=== PATIENT | male | born 1950 | race Caucasian/White ===

== ENCOUNTER 2016-04-05 02:54 | Observation (INO) | payer BC, SELFPAY ==
[2016-04-05] MEDS ORDERED: Clopidogrel 75 MG Tab PO ONE (03:19)
[2016-04-05] MEDS ORDERED: Sodium Chloride 0.9% 10 ML Syringe FLUSH PRN ×2 (03:19→05:04)
[2016-04-05] MEDS ORDERED: Aspirin 81 MG Tab.Chew CHEW ONE (03:19)
[2016-04-05] MEDS ORDERED: Famotidine 20 MG/2 ML SDV IVPUSH ONE (03:19)
--- NOTE | 2016-04-05 03:19 | EDM.PDOC ---
ED HPI GENERAL MEDICAL PROBLEM - General Chief Complaint: General Stated Complaint: light headed Time Seen by Provider: 04/05/16 03:10 Source of Information: Reports: Patient, Family (), Old records ([facility] chart/EMR) - History of Present Illness INITIAL COMMENTS - FREE TEXT/NARRATIVE: Patient was brought to the emergency room via private automobile by his for evaluation of progressive persistent 5/10 retrosternal chest pressure and heaviness with radiation into the shoulders and neck bilaterally and associated with moderate dizziness, mild diaphoresis, and mild dyspnea with ambulation with symptoms starting at about 15:00 hours yesterday afternoon. The patient denies any orthostasis, orthopnea, or any other anginal-type symptoms, although he has had some mild decreased exercise tolerance during the last couple of days. No recent history of abdominal pain, heartburn, nausea, diarrhea, melena, gross hematochezia, or any food intolerance, including fatty foods, etc.. The patient also denies any recent fever, cough, wheezing, dyspnea, etc.. No history of recent headaches, diplopia, change in mental status, or other change in neurological status. Onset: today, gradual Onset Date: 04/04/16 Onset Time: 15:00 Duration: Constant, Getting worse Location: Reports: neck, chest, upper extremity, left, upper extremity, right, radiates to: (As above). Denies: head, face, abdomen, back Quality: Reports: Pressure Severity: moderate Improves with: Reports: Rest Worsens with: Reports: Movement (Ambulation with no recent symptoms with head movement) Context: Reports: Other (As above) Associated Symptoms: Reports: diaphoresis, shortness of breath. Denies: confusion, chest pain, cough, fever/chills, headaches, loss of appetite, malaise , nausea/vomiting, seizure, syncope, weakness Treatments CLINIC LPN: Reports: Other (see below) (None) Middle Chest Pain Score (Numeric/FACES): 5 - Related Data Allergies Allergy/AdvReac Type Severity Reaction Status Date / Time aspirin Allergy Other Verified 04/05/16 03:00 Home Meds: Home Meds DULoxetine [Cymbalta] 30 mg PO DAILY 08/28/14 [History] Ferrous Sulfate 325 mg PO BIDMEALS 08/28/14 [History] Folic Acid 1 mg PO DAILY 08/28/14 [History] Gabapentin 600 mg PO QID 08/28/14 [History] Simvastatin 40 mg PO BEDTIME 08/28/14 [History] hydrOXYzine HCl [hydrOXYzine] 50 mg PO TID PRN 08/28/14 [History] Naltrexone 50 mg PO BEDTIME #30 tablet 11/17/14 [Rx] Liraglutide [Victoza] 1.8 mg SUBCUT DAILY 05/30/15 [History] Lisinopril 5 mg PO DAILY 05/30/15 [History] metFORMIN HCl [Metformin HCl ER] 1,000 mg PO BID 05/30/15 [History] Cyclobenzaprine [Flexeril] 10 mg PO TID PRN #30 tablet 02/01/16 [Rx] Multivitamins [Tab-A-Carrie] 1 tab PO DAILY 02/01/16 [History] Tamsulosin [Flomax] 0.4 mg PO BEDTIME 02/01/16 [History] Cyanocobalamin (Vitamin B-12) [Vitamin B-12] 1,000 mcg SL DAILY 03/08/16 [ History] Empagliflozin [Jardiance] 25 mg PO DAILY 03/08/16 [History] buPROPion [Wellbutrin XL] 150 mg PO DAILY 03/08/16 [History] Acetaminophen [Tylenol Extra Strength] 500 mg PO TID 04/05/16 [History] Past Medical History HEENT History: Reports: Hard of hearing, Impaired vision. Denies: Allergic rhinitis, Cataract, Glaucoma, Macular degeneration, Retinal detachment Other HEENT History: Reading glasses despite previous LASIK surgery, mild borderline presbycusis with no therapy Cardiovascular History: Reports: Afib, Arrhythmia, CAD, Heart murmur, High cholesterol, Hypertension, Other (see below). Denies: Aneurysm, Blood clots/VTE /DVT, Bypass, Heart Failure, NE, Pacemaker, PTCA, Stents Other Cardiovascular History: Atrial fibrillation versus PSVT with status post ablation as below, incomplete right bundle branch block, dyslipidemia, hypertensive cardiomegaly, mild diffuse valvular disease, PACs, Respiratory History: Reports: COPD, Sleep apnea, Other (see below). Denies: Intubation, previous, PE, Pneumothorax Other Respiratory History: Restless leg syndrome Gastrointestinal History: Reports: Cholelithiasis, Colon polyp, Diverticulosis, Gastritis, GERD, Hemorrhoids, Hiatal hernia, PUD, Other (see below). Denies: Celiac disease, Chronic constipation, Chronic diarrhea, Fecal incontinence, GI bleed, Hepatitis, Inflammatory bowel disease, Irritable bowel syndrome, Jaundice , Pancreatitis Other Gastrointestinal History: recurrent rectal fissures/fistulas, Gilbert's syndrome, mild colitis, gastritis, esophagitis, and duodenitis; hyperplastic colonic polyp at 30 cm on 03/12/2001, fatty liver Genitourinary History: Reports: BPH. Denies: Chronic renal insuffiency, Renal calculus, STD, Urinary incontinence, UTI, recurrent Musculoskeletal History: Reports: Arthritis, Back pain, chronic, Fracture, Gout , Neck pain, chronic, Osteoarthritis, Other (see below). Denies: Amputation, RA , SLE Other Musculoskeletal History: Left wrist fracture on 08/29/09 with fixation as below, right thumb fracture in about 1999 with surgery as below, vertebral body compression fractures of T5, T7, and T8-T10 with mild scoliosis by CT scan Neurological History: Reports: Neuropathy, diabetic, Neuropathy, peripheral, Other (see below). Denies: Brain injury, Cerebral aneurysms, Concussion, CVA, Headaches, chronic, Head trauma, Migraines, MS, Parkinson's, Seizure, TIA, Vertigo Other Neuro History: No history of DTs or seizures from alcohol use, mild cerebrovascular disease by CT scan of the head as below Psychiatric History: Reports: Addiction, Anxiety, Depression, Psych Hospitalization(s), Other (see below). Denies: Abuse, victim of, ADD, ADHD, Alzheimers disease, Dementia, Hallucinations, PTSD, Suicide attempt, Suicidal ideation Other Psychiatric History: Alcohol abuse with previous history of alcohol treatment including inpatient detoxification in January 2016 through February 2015 for 2 weeks, previous tobacco and and chronic narcotic use, chronic insomnia Endocrine/Metabolic History: Reports: Diabetes, type II, Other (see below). Denies: Hypothyroidism, IDDM Other Endocrine/Metabolic History: Diabetes mellitus-diet controlled with previous history of occasional hypoglycemia and current medication program for weight loss Hematologic History: Reports: Anemia, B12 deficiency, Folic acid, Iron deficiency, Polycythemia. Denies: Blood transfusion(s) Immunologic History: Reports: None. Denies: AIDS, HIV, SLE Oncologic (Cancer) History: Reports: None. Denies: Basal cell carcinoma, Hodgkin's Lymphoma, Leukemia, Lymphoma, Malignant melanoma, Non-Hodgkin's Lymphoma Dermatologic History: Reports: None. Denies: Eczema, Psoriasis - Infectious Disease History Infectious Disease History: Reports: Chicken pox, Measles, Mumps. Denies: C- difficile, Helicobacter pylori, MRSA, Pertussis (whooping cough), Rheumatic Fever, Rubella, Scarlet fever, Shingles, TB, VRE - Past Surgical History Head Surgeries/Procedures: Reports: None HEENT Surgical History: Reports: Eye surgery, LASIK, Oral surgery, Other (see below). Denies: Adenoidectomy, Cataract surgery, Myringotomy w tube(s), Naso- sinus surgery, Tonsillectomy Other HEENT Surgeries/Procedures: LASIK surgery bilaterally on 12/08/1999, bilateral upper blepharoplasty in about 2013, complete teeth extraction Cardiovascular Surgical History: Reports: Cardiac Ablation, Other (see below). Denies: Varicose, Vascular surgery Other Cardiovascular Surgeries/Procedures: Cardiac ablation in November 2014 for atrial fibrillation Respiratory Surgical History: Reports: None. Denies: Lung Biopsies, Thoracentesis GI Surgical History: Reports: Bariatric procedure, Cholecystectomy, Colonoscopy , EGD, Polypectomy, Other (see below). Denies: Appendectomy, Hernia, abdominal , Hernia, inguinal, Hernia repair/other Other GI Surgeries/Procedures: Last colonoscopy 07/19/12 with EGD and colonoscopy on 03/12/2001, gastric bypass in 2005, Perirectal fistulectomy with concurrent hemorrhoidectomy on 02/11/1999 with repeat surgery in November 2015, polypectomy at 30 cm on 03/12/2001, laparoscopic cholecystectomy on 08/28/14 Male Surgical History: Reports: Circumcision, Vasectomy, Other (see below). Denies: TURP-Transurethral resection of prostate Other Male Surgeries/Procedures: Circumcision as an , vasectomy in about 1978 Endocrine Surgical History: Reports: None. Denies: Thyroid biopsy Neurological Surgical History: Reports: None. Denies: C-Spine, Discectomy, Laminectomy, Lumbar spine, Spinal fusion, Vertebroplasty Musculoskeletal Surgical History: Reports: Carpal tunnel, Hip replacement, Knee replacement, ORIF, Other (see below). Denies: Amputation, Arthroscopic knee, Arthroscopic procedure, Ganglion cyst, Shoulder surgery Other Musculoskeletal Surgeries/Procedures:: Left wrist ORIF secondary to fracture in August 2009, excision of a neuroma from digit number 2 of the left foot, left hip TEP, Right carpal tunnel release on 12/21/1999 and, left carpal tunnel release in January 2000, partial left knee arthroplasty in February 2011 with right partial knee arthroplasty in 2013, right thumb graft and pinning in about 1999 Oncologic Surgical History: Reports: None Dermatological Surgical History: Reports: None - Past Imaging History Past Imaging History: Reports: Cardiac echo (Last on 11/18/2014), CAT scan (CT scan of the brain, cervical spine, thoracic spine, and lumbar spine on 02/01/[address] scan of Head, C-spine, and abdomen and pelvis secondary to trauma on 08/29/09, CT of the abdomen and pelvis on 07/15/06), MRI (Lumbar spine on 09/07/15, Left knee on 12/01/10), Sleep study (09/26/11), Stress testing ( Cardiolite stress test on 11/20/14 with ejection fraction of 57% with previous Cardiolite stress test on 12/27/01), Ultrasound (Gallbladder ultrasound on ), Other (see below) (Electroimmunofluoresis on 11/10/1999, EMGs and nerve conduction studies of the upper extremities on 10/14/1999) Social & Family History - Family History HEENT: Reports: Macular degeneration, Other (see below). Denies: Allergic rhinitis, Glaucoma, Hearing impairment Other HEENT Family History: Mother with macular degeneration Cardiac: Reports: Blood clots/VTE/DVT, Bypass, CAD, Heart failure, Heart murmur , Heart valve replacement, High cholesterol, Hypertension, NE, Other (see below) . Denies: Afib, Aneurysm, Arrhythmia, Pacemaker, PVD/COD, Stent, Syncope Other Cardiac Family History: Mother with three-vessel CABG at age 73 with CHF, valvular surgery, and possible previous NE, hypertension in mother and 2 brothers, brother with hyperlipidemia, mother with history of DVT in the legs in her 60s Respiratory: Reports: None. Denies: Asthma, COPD, PE, Pneumothorax, Sleep apnea GI: Reports: Cholelithiasis, Other (see below). Denies: Celiac disease, Colon polyps, Diverticulosis, GERD, GI bleed, Inflammatory bowel disease, Irritable bowel syndrome, PUD Other GI Family History: Mother with cholelithiasis : Reports: None. Denies: Dialysis, Renal calculus, Renal disease/ insufficiency OBGYN: Reports: None. Denies: Dysfunctional uterine bleeding, Endometriosis, Recurrent spontaneous Musculoskeletal: Reports: Arthritis, Gout, Osteoarthritis, Osteoporosis, Other ( see below). Denies: RA, SLE Other Musculoskeletal Family History: Maternal aunt with osteoarthritis, brother with gout Neurological: Reports: Alzheimers disease, CVA, Dementia, Other (see below). Denies: Cerebral aneurysms, Migraines, MS, Neuropathy, diabetic, Neuropathy, peripheral, Parkinson's, Seizure, TIA Other Neurological Family History: Mother with CVA in her 70s and history of Alzheimer's disease Psychiatric: Reports: Anxiety, Depression, Suicide attempt, Other (see below). Denies: Abuse, victim of, ADD, ADHD, Psychosis, PTSD Other Psychiatric Family History: Father and sister with history of alcohol abuse and anxiety depression which did require alcohol treatment and hospitalizations, father with history of suicide attempt, Endocrine/Metabolic: Reports: Diabetes, type II, Other (see below). Denies: Hypothyroidism, IDDM Other Endocrine/Metabolic Family History: Borderline diabetes mellitus in father Hematologic: Reports: None. Denies: Anemia Immunologic: Reports: None. Denies: AIDS, HIV, SLE Dermatologic: Reports: None. Denies: Eczema, Psoriasis Oncologic: Reports: Breast, Lung, Other (see below). Denies: Colon, Hodgkin's lymphoma, Leukemia, Non-Hodgkin's lymphoma, Prostate, Skin Other Oncologic Family History: Paternal aunt with lung cancer fatal in her 60s with limited previous tobacco use, paternal cousin with lung cancer at age 56 likely secondary to tobacco use, sister with breast cancer in her 50s - Tobacco Use Smoking Status *Q: Former Smoker Years of Tobacco use: 30 Packs/Tins Daily: 2 Used Tobacco, but Quit: Yes Month Tobacco Last Used: Started smoking at age 17 with no use since 02/11/1999 Second Hand Smoke Exposure: No Second Hand Smoke Education Provided: No - Caffeine Use Caffeine Use: Reports: Soda (6 sodas per day). Denies: Coffee, Energy drinks, Tea - Alcohol Use Alcohol Use History: Yes Days Per Week of Alcohol Use: 7 (History of alcohol abuse since about age 51 requiring treatment as above) Number of Drinks Per Day: 2 (1.5 pints per day in 2 cans of soda) Number of Drinks Per Day Comment: Last drink about 2 weeks ago Total Drinks Per Week: 14 Alcohol Use in Last Twelve Months: Yes Alcohol Use Frequency: Binges, Daily - Recreational Drug Use Recreational Drug Use: No Drug Use in Last 12 Months: No Recreational Drug Type: Denies: Amphetamines (Speed), Cocaine, Heroin, Inhalants (Glues, Solvents, Aerosols), LSD (Acid), Marijuana/Hashish, Methamphetamine - Living Situation & Occupation Living situation: Reports: (1967, 5 children), with family () Occupation: retired (retired [employer] at age 65) ED ROS GENERAL - Review of Systems Review Of Systems: See Below Constitutional: Reports: no symptoms, weight loss (Intentional 70 pound weight loss during the last year as part of weight loss program). Denies: fever, chills, malaise, weakness, fatigue, night sweats, diaphoresis, decreased appetite, weight gain HEENT: Reports: Hearing loss (Stable borderline chronic), Vision change (Mild bilateral with dizziness). Denies: Contact Lenses, Dental pain, Ear discharge, Ear pain, Eye pain, Glasses, Nose pain, Throat pain, Throat swelling, Vertigo Respiratory: Reports: shortness of breath. Denies: wheezing, pleuritic chest pain, cough Cardiovascular: Reports: Chest pain, Dyspnea on exertion, Lightheadedness. Denies: Blood pressure problem, Claudication, Edema, Orthopnea, Palpitations, PND, Syncope Endocrine: Reports: no symptoms. Denies: fatigue GI/Abdominal: Reports: No symptoms. Denies: Abdominal pain, Anorexia, Black stool, Bloody stool, Constipation, Diarrhea, Decreased appetite, Difficulty swallowing, Distension, Flatus, Hematochezia, Melena, Mucous in stool, Nausea, Stool incontinence, Vomiting : Reports: no symptoms. Denies: discharge, dysuria, flank pain, hematuria, incontinence, irregular menses, pain, urgency, urinary retention Musculoskeletal: Reports: neck pain (Chest pain radiation as above), shoulder pain (Chest pain radiation as above). Denies: arm pain, back pain, leg pain Skin: Reports: diaphoresis. Denies: bruising, wound Neurological: Reports: dizziness, difficulty walking (Secondary to dizziness). Denies: confusion, headache, numbness, paresthesia, pre-existing deficit, seizure, syncope, tingling, tremors, trouble speaking, weakness, change in speech, gait disturbance Psychiatric: Reports: No symptoms. Denies: Agitation, Anxiety, Confusion, Cravings, Depression, Hallucinations Hematologic/Lymphatic: Reports: no symptoms Immunologic: Reports: no symptoms ED EXAM, GENERAL - Physical Exam Exam: See Below Exam Limited By: No limitations General Appearance: alert, WD/WN, no apparent distress, anxious (Mild) Eye Exam: bilateral eye: EOMI, normal fundi, normal inspection (No nystagmus), PERRL Ears: normal external exam, normal canal, normal TMs, hearing loss (Mild bilateral presbycusis, stable by history) Nose: normal inspection, normal mucosa, no blood Throat/Mouth: Normal inspection, Normal lips, Normal teeth, Normal gums, Normal oropharynx, Normal voice, No airway compromise. No: Dysphagia, Perioral cyanosis Head: atraumatic, normocephalic. No: facial tenderness, sinus tenderness Neck: normal inspection, supple, non-tender, full range of motion. No: carotid bruit, lymphadenopathy (L), lymphadenopathy (R), thyromegaly Respiratory/Chest: no respiratory distress, lungs clear, normal breath sounds, no accessory muscle use, chest non-tender. No: pleural rub, retractions Cardiovascular: normal peripheral pulses, regular rate, rhythm, no edema, no gallop, no JVD, no murmur, no rub. No: gallop/S3, gallop/S4, friction rub Peripheral Pulses: 2+: radial (L), radial (R), dorsalis pedis (L), dorsalis pedis (R) GI/Abdominal: normal bowel sounds, soft, non tender, no organomegaly, no distention, no abnormal bruit, no mass. No: guarding (Male) Exam: Deferred Rectal (Males) Exam: Deferred Back Exam: normal inspection, full range of motion. No: CVA tenderness (L), CVA tenderness (R), muscle spasm Extremities: normal inspection, normal range of motion, non-tender, no pedal edema, normal capillary refill. No: Disha's Sign Neurological: alert, oriented, CN II-XII intact, normal cognition, normal gait, normal reflexes (Negative Babinski's, finger to nose, and pronator rotation tests. No evidence of facial paresis, tongue deviation, orthostasis, etc.. Excellent reverse thought processes.), no motor/sensory deficits Psychiatric: anxious (Mild), depressed mood (Borderline) Skin Exam: Warm, Dry, Intact, Normal color, No rash. No: Diaphoretic, Ecchymosis, Wound/incision Lymphatic: no adenopathy EKG INTERPRETATION EKG Date: 04/05/16 Time: 03:24 Rhythm: NSR Rate (beats/min): 84 Garner: normal P-wave: enlarged (Mild diffuse biphasic P waves) QRS: normal (QRS interval of 0.09 seconds representing repolarization changes with borderline T-wave inversion in lead V1) ST-T: normal QT: normal MN/PQ Interval: 0.17 seconds with mild poor R wave progression anteriorly Comparison: no change (From last EKG on 11/23/14) EKG Interpretation Comments: No acute ischemic changes Course - Vital Signs Last Recorded V/S: Last Vital Signs Temp 36.4 C 04/05/16 03:01 Pulse 86 04/05/16 04:06 Resp 16 04/05/16 04:06 BP 123/78 04/05/16 04:06 Pulse Ox 100 04/05/16 04:06 Vital Signs - 24 hr 04/05/16 04/05/16 04/05/16 03:01 03:15 03:30 Temperature [ 36.4 C Oral] Pulse, 94 88 86 Peripheral [ Right Pulse Oximetry] Respiratory 18 17 19 Rate Blood Pressure 116/73 107/76 118/82 [Right Upper Arm] O2 Sat by Pulse 96 96 100 Oximetry 04/05/16 04/05/16 04/05/16 03:46 04:06 04:27 Temperature [ Oral] Pulse, 107 H 86 87 Peripheral [ Right Pulse Oximetry] Respiratory 20 16 17 Rate Blood Pressure 113/71 123/78 114/76 [Right Upper Arm] O2 Sat by Pulse 100 100 100 Oximetry - Orders/Labs/Meds Orders: Active Orders 24 hr Category Date Time Status Cardiac Monitoring [RC] . DIRECTED Care 04/05/16 03:19 Active EKG Documentation Completion [RC] ASDIRECTED Care 04/05/16 03:22 Active Oxygen Therapy, ED [RC] CONTINUOUS Care 04/05/16 03:19 Active Peripheral IV Care [RC] . DIRECTED Care 04/05/16 03:22 Active Pulse Oximetry [RC] CONTINUOUS Care 04/05/16 03:19 Active Up With Assistance [RC] PFP Care 04/05/16 03:19 Active Vital Signs [RC] PFP Care 04/05/16 03:19 Active Nothing per Oral Now Diet [DIET] Diet 04/05/16 Breakfast Active Chest 1V Frontal [CR] Stat Exams 04/05/16 03:19 Taken Sodium Chloride 0.9% [Saline Flush] Med 04/05/16 03:19 Active 10 ml FLUSH ASDIRECTED PRN Obtain Past Medical Record [OM.PC] Urgent Oth 04/05/16 03:19 Active Peripheral IV Insertion Adult [OM.PC] Stat Oth 04/05/16 03:19 Ordered Resuscitation Status Stat Resus Stat 04/05/16 03:19 Ordered Medication Orders Sodium Chloride (Saline Flush) 10 ml FLUSH ASDIRECTED PRN PRN Reason: Keep Vein Open Last Admin: 04/05/16 03:55 Dose: 10 ml Labs: Laboratory Tests 04/05/16 04/05/16 04/05/16 Range/Units 03:35 03:35 03:35 WBC 7.0 (4.0-10.2) K/uL RBC 3.25 L (4.33-5.41) M/uL Hgb 10.2 L D (13.1-16.8) g/dL Hct 31.1 L (39.0-49.0) % MCV 95.7 D (84.0-98.0) fL MCH 31.4 (28.2-33.3) pg MCHC 32.8 (31.7-36.0) g/dL RDW 15.8 H (11.2-14.1) % Plt Count 277 D (150-350) K/uL Neut % (Auto) 61.4 (45.0-80.0) % Lymph % (Auto) 24.6 (10.0-50.0) % [place] % (Auto) 12.0 (2.0-14.0) % Eos % (Auto) 1.0 (0.0-5.0) % Baso % (Auto) 1.0 (0.0-2.0) % Neut # 4.29 (1.40-7.00) K/uL Lymph # 1.72 (0.50-3.50) K/uL [place] # 0.84 (0.00-1.00) K/uL Eos # 0.07 (0.00-0.50) K/uL Baso # 0.07 (0.00-0.20) K/uL PT 10.4 (9.8-11.7) SEC INR 1.0 APTT 22.1 L (23.5-30.0) SEC D-Dimer, Quantitative 216 (0-400) ng/mL Sodium (136-145) mmol/L Potassium (3.5-5.1) mmol/L Chloride (98-107) mmol/L Carbon Dioxide (21.0-32.0) mmol/L BUN (7-18) mg/dL Creatinine (0.51-1.17) mg/dL Est Cr Clr Drug Dosing mL/min Estimated GFR (MDRD) mL/min Glucose (74-106) mg/dL Hemoglobin A1c (4.3-5.7) % Lactic Acid (0.4-2.0) mmol/L Uric Acid (2.6-7.2) mg/dL Calcium (8.5-10.1) mg/dL Magnesium (1.8-2.4) mg/dL Total Bilirubin (0.2-1.0) mg/dL AST (15-37) U/L ALT (12-78) U/L Alkaline Phosphatase (46-116) IU/L Creatine Kinase (26-308) U/L Creatine Kinase Index (0.0-2.5) % CK-MB (CK-2) (0.00-3.60) ng/mL Troponin I (0.000-0.056) ng/mL Eep-M-Avananyislj Pept (0-125) pg/mL Total Protein (6.4-8.2) g/dL Albumin (3.4-5.0) g/dL TSH, Ultra Sensitive (0.358-3.740) mIU/mL Ethyl Alcohol (0.000-0.080) g/dL H. pylori IgG Antibody (NEGATIVE) 04/05/16 04/05/16 04/05/16 Range/Units 03:35 03:35 03:35 WBC (4.0-10.2) K/uL RBC (4.33-5.41) M/uL Hgb (13.1-16.8) g/dL Hct (39.0-49.0) % MCV (84.0-98.0) fL MCH (28.2-33.3) pg MCHC (31.7-36.0) g/dL RDW (11.2-14.1) % Plt Count (150-350) K/uL Neut % (Auto) (45.0-80.0) % Lymph % (Auto) (10.0-50.0) % [place] % (Auto) (2.0-14.0) % Eos % (Auto) (0.0-5.0) % Baso % (Auto) (0.0-2.0) % Neut # (1.40-7.00) K/uL Lymph # (0.50-3.50) K/uL [place] # (0.00-1.00) K/uL Eos # (0.00-0.50) K/uL Baso # (0.00-0.20) K/uL PT (9.8-11.7) SEC INR APTT (23.5-30.0) SEC D-Dimer, Quantitative (0-400) ng/mL Sodium 139 (136-145) mmol/L Potassium 4.3 (3.5-5.1) mmol/L Chloride 103 (98-107) mmol/L Carbon Dioxide 24.6 (21.0-32.0) mmol/L BUN 39 H D (7-18) mg/dL Creatinine 0.74 (0.51-1.17) mg/dL Est Cr Clr Drug Dosing 100.85 mL/min Estimated GFR (MDRD) > 60 mL/min Glucose 120 H (74-106) mg/dL Hemoglobin A1c (4.3-5.7) % Lactic Acid 2.9 H (0.4-2.0) mmol/L Uric Acid 4.7 (2.6-7.2) mg/dL Calcium 8.2 L (8.5-10.1) mg/dL Magnesium 1.9 (1.8-2.4) mg/dL Total Bilirubin 0.4 (0.2-1.0) mg/dL AST 16 (15-37) U/L ALT 29 (12-78) U/L Alkaline Phosphatase 71 (46-116) IU/L Creatine Kinase 18 L (26-308) U/L Creatine Kinase Index 4.4 H* (0.0-2.5) % CK-MB (CK-2) 0.80 (0.00-3.60) ng/mL Troponin I 0.000 (0.000-0.056) ng/mL Neg-X-Evxkreeassp Pept 6 (0-125) pg/mL Total Protein 6.4 (6.4-8.2) g/dL Albumin 3.4 (3.4-5.0) g/dL TSH, Ultra Sensitive 2.822 (0.358-3.740) mIU/mL Ethyl Alcohol (0.000-0.080) g/dL H. pylori IgG Antibody Negative (NEGATIVE) 04/05/16 04/05/16 Range/Units 03:35 03:35 WBC (4.0-10.2) K/uL RBC (4.33-5.41) M/uL Hgb (13.1-16.8) g/dL Hct (39.0-49.0) % MCV (84.0-98.0) fL MCH (28.2-33.3) pg MCHC (31.7-36.0) g/dL RDW (11.2-14.1) % Plt Count (150-350) K/uL Neut % (Auto) (45.0-80.0) % Lymph % (Auto) (10.0-50.0) % [place] % (Auto) (2.0-14.0) % Eos % (Auto) (0.0-5.0) % Baso % (Auto) (0.0-2.0) % Neut # (1.40-7.00) K/uL Lymph # (0.50-3.50) K/uL [place] # (0.00-1.00) K/uL Eos # (0.00-0.50) K/uL Baso # (0.00-0.20) K/uL PT (9.8-11.7) SEC INR APTT (23.5-30.0) SEC D-Dimer, Quantitative (0-400) ng/mL Sodium (136-145) mmol/L Potassium (3.5-5.1) mmol/L Chloride (98-107) mmol/L Carbon Dioxide (21.0-32.0) mmol/L BUN (7-18) mg/dL Creatinine (0.51-1.17) mg/dL Est Cr Clr Drug Dosing mL/min Estimated GFR (MDRD) mL/min Glucose (74-106) mg/dL Hemoglobin A1c 4.9 (4.3-5.7) % Lactic Acid (0.4-2.0) mmol/L Uric Acid (2.6-7.2) mg/dL Calcium (8.5-10.1) mg/dL Magnesium (1.8-2.4) mg/dL Total Bilirubin (0.2-1.0) mg/dL AST (15-37) U/L ALT (12-78) U/L Alkaline Phosphatase (46-116) IU/L Creatine Kinase (26-308) U/L Creatine Kinase Index (0.0-2.5) % CK-MB (CK-2) (0.00-3.60) ng/mL Troponin I (0.000-0.056) ng/mL Wcd-D-Cbmjddbtcgn Pept (0-125) pg/mL Total Protein (6.4-8.2) g/dL Albumin (3.4-5.0) g/dL TSH, Ultra Sensitive (0.358-3.740) mIU/mL Ethyl Alcohol 0.003 (0.000-0.080) g/dL H. pylori IgG Antibody (NEGATIVE) Meds: Medications Generic Name Dose Route Start Last Admin Trade Name Freq PRN Reason Stop Dose Admin Sodium Chloride 10 ml 04/05/16 03:19 04/05/16 03:55 Saline Flush FLUSH 10 ml ASDIRECTED PRN Administration Keep Vein Open Discontinued Medications Generic Name Dose Route Start Last Admin Trade Name Freq PRN Reason Stop Dose Admin Aspirin 324 mg 04/05/16 03:19 04/05/16 03:50 Aspirin CHEW 04/05/16 03:20 324 mg ONETIME ONE Administration Clopidogrel Bisulfate 300 mg 04/05/16 03:19 04/05/16 03:51 Plavix PO 04/05/16 03:20 300 mg ONETIME ONE Administration Famotidine 40 mg 04/05/16 03:19 04/05/16 03:53 Pepcid IVPUSH 04/05/16 03:20 40 mg ONETIME ONE Administration - Radiology Interpretation Free Text/Narrative:: interior design director shows normal sinus rhythm in the 80s with no ectopy or arrhythmia Chest x-ray, portable, shows moderate prominence of the proximal aortic arch with moderate COPD changes and possible pulmonary hypertension but no evidence of cardiomegaly, CHF, pneumothorax, or pulmonary infiltrates Departure - Departure Time of Disposition: 04:30 Disposition: Refer to Observation Condition: good Clinical Impression: Iron deficiency anemia due to chronic blood loss, Lactic acid blood increased, Peptic reflux disease, Mixed anxiety and depressive disorder Osteoarthritis Qualifiers: Osteoarthritis location: multiple joints Osteoarthritis type: primary Qualified Code(s): M15.0 - Primary generalized (osteo)arthritis Coronary artery disease Qualifiers: Coronary Disease-Associated Artery/Lesion type: [place] artery [place] vs. transplanted heart: [place] heart Associated angina: with unstable angina Qualified Code(s): I25.110 - Atherosclerotic heart disease of [place] coronary artery with unstable angina pectoris Hypertension Qualifiers: Hypertension type: essential hypertension Qualified Code(s): I10 - Essential ( primary) hypertension Hyperlipidemia Qualifiers: Hyperlipidemia type: unspecified Qualified Code(s): E78.5 - Hyperlipidemia, unspecified Diabetes mellitus Qualifiers: Diabetes mellitus type: type 2 Diabetes mellitus complication status: with neurologic complications Diabetes mellitus complication detail: with polyneuropathy Diabetes mellitus parts counterman insulin use: without parts counterman use Qualified Code(s): E11.42 - Type 2 diabetes mellitus with diabetic polyneuropathy COPD (chronic obstructive pulmonary disease) Qualifiers: COPD type: emphysema Emphysema type: panlobular Qualified Code(s): J43.1 - Panlobular emphysema Sleep apnea Qualifiers: Sleep apnea type: unspecified type Qualified Code(s): G47.30 - Sleep apnea, unspecified Forms: ED Department Discharge Care Plan Goals: See plan - Problem List & Annotations (1) Coronary artery disease SNOMED Code(s): 74924961 Code(s): I25.10 - ATHSCL HEART DISEASE OF [place] CORONARY ARTERY W/O ANG PCTRS Status: Acute Priority: High Current Visit: Yes Annotation/Comment :: Nonspecific chest pain with multiple cardiac risk factors. Artifactually elevated CK index secondary to low baseline CK with otherwise normal cardiac enzymes and EKG. Symptoms may have been aggravated by his recent progressive anemia as below. Initiate standard rule out NE orders with cardiology consultation depending on his clinical course. Chest pain protocol was initiated in the emergency room. Consider repeat Cardiolite stress test on an outpatient basis Qualifiers: Coronary Disease-Associated Artery/Lesion type: [place] artery [place] vs. transplanted heart: [place] heart Associated angina: with unstable angina Qualified Code(s): I25.110 - Atherosclerotic heart disease of [place] coronary artery with unstable angina pectoris (2) Iron deficiency anemia SNOMED Code(s): 50069931 Code(s): D50.9 - IRON DEFICIENCY ANEMIA, UNSPECIFIED Status: Acute Priority: High Current Visit: Yes Onset Date: ~04/05/16 Annotation/Comment :: Significant progressive anemia today with previous hemoglobin of 14.9 on . The patient has been compliant with his iron supplementation. Note history of alcohol abuse with further iron studies, vitamin B 12 level, etc. with next set of blood work, including repeat CBC. High-dose IV Pepcid given on arrival as below Qualifiers: Iron deficiency anemia type: other iron deficiency Qualified Code(s): D50.8 - Other iron deficiency anemias (3) Lactic acid blood increased SNOMED Code(s): 9469482 Code(s): R79.89 - OTHER SPECIFIED ABNORMAL FINDINGS OF BLOOD CHEMISTRY Status: Chronic Priority: Medium Current Visit: Yes Annotation/Comment:: Lactic acid is in 6 hours with IV fluids as above. No clinical evidence of dehydration, sepsis, etc. (4) Peptic reflux disease SNOMED Code(s): 96633805 Code(s): K21.9 - GASTRO-ESOPHAGEAL REFLUX DISEASE WITHOUT ESOPHAGITIS Status: Chronic Priority: Medium Current Visit: Yes Annotation/Comment:: Stable by history with no abdominal pain or evidence of acute GI bleed despite progressive anemia. High-dose IV Pepcid given in the emergency room as GI prophylaxis. Obtain Hemoccults (5) COPD (chronic obstructive pulmonary disease) SNOMED Code(s): 37988784 Code(s): J44.9 - CHRONIC OBSTRUCTIVE PULMONARY DISEASE, UNSPECIFIED Status : Chronic Priority: Medium Current Visit: Yes Annotation/Comment:: No Recent fever,-type symptoms, etc. Qualifiers: COPD type: emphysema Emphysema type: panlobular Qualified Code(s): J43.1 - Panlobular emphysema (6) Diabetes mellitus SNOMED Code(s): 81796376 Code(s): E11.9 - TYPE 2 DIABETES MELLITUS WITHOUT COMPLICATIONS Status: Chronic Priority: Medium Current Visit: Yes Annotation/Comment:: Patient does not take Accu-Cheks, Glycosylated hemoglobin to today Qualifiers: Diabetes mellitus type: type 2 Diabetes mellitus complication status: with neurologic complications Diabetes mellitus complication detail: with polyneuropathy Diabetes mellitus prison insulin use: without prison use Qualified Code(s): E11.42 - Type 2 diabetes mellitus with diabetic polyneuropathy (7) Hyperlipidemia SNOMED Code(s): 28980001 Code(s): E78.5 - HYPERLIPIDEMIA, UNSPECIFIED Status: Chronic Priority: Medium Current Visit: Yes Annotation/Comment:: Lipid panel with next set of blood work Qualifiers: Hyperlipidemia type: unspecified Qualified Code(s): E78.5 - Hyperlipidemia , unspecified (8) Hypertension SNOMED Code(s): 80352007 Code(s): I10 - ESSENTIAL (PRIMARY) HYPERTENSION Status: Chronic Priority : Medium Current Visit: Yes Annotation/Comment:: History of hypertension with mildly decreased blood pressures in the emergency room. IV fluids with caution. Qualifiers: Hypertension type: essential hypertension Qualified Code(s): I10 - Essential (primary) hypertension (9) Mixed anxiety and depressive disorder SNOMED Code(s): 629314580 Code(s): F41.8 - OTHER SPECIFIED ANXIETY DISORDERS Status: Chronic Priority: Medium Current Visit: Yes Annotation/Comment:: Stable by history, although a long history of alcohol abuse with last use 2 weeks ago. Alcohol level is normal today with no direct evidence of DTs. Patient is still in counseling an outpatient alcohol treatment by his 's history (10) Sleep apnea SNOMED Code(s): 77947716 Code(s): G47.30 - SLEEP APNEA, UNSPECIFIED Status: Chronic Priority: Medium Current Visit: Yes Annotation/Comment:: He has been compliant with his CPAP Qualifiers: Sleep apnea type: unspecified type Qualified Code(s): G47.30 - Sleep apnea , unspecified (11) Osteoarthritis SNOMED Code(s): 869648275 Code(s): M19.90 - UNSPECIFIED OSTEOARTHRITIS, UNSPECIFIED SITE Status: Chronic Priority: Medium Current Visit: Yes Annotation/Comment:: Otherwise stable by history Qualifiers: Osteoarthritis location: multiple joints Osteoarthritis type: primary Qualified Code(s): M15.0 - Primary generalized (osteo)arthritis - Problem List Review Problem List Initiated/Reviewed/Updated: Yes - My Orders Last 24 Hours: My Active Orders 04/05/16 03:19 Cardiac Monitoring [RC] . DIRECTED Oxygen Therapy, ED [RC] CONTINUOUS Pulse Oximetry [RC] CONTINUOUS Up With Assistance [RC] PFP Vital Signs [RC] PFP Chest 1V Frontal [CR] Stat Sodium Chloride 0.9% [Saline Flush] 10 ml FLUSH ASDIRECTED PRN Obtain Past Medical Record [OM.PC] Urgent Peripheral IV Insertion Adult [OM.PC] Stat Resuscitation Status Stat 04/05/16 03:22 EKG Documentation Completion [RC] ASDIRECTED Peripheral IV Care [RC] . DIRECTED 04/05/16 Breakfast Nothing per Oral Now Diet [DIET] - Assessment/Plan Admission H&P: Please use this note as an admission H&P Last 24 Hours: My Active Orders 04/05/16 03:19 Cardiac Monitoring [RC] . DIRECTED Oxygen Therapy, ED [RC] CONTINUOUS Pulse Oximetry [RC] CONTINUOUS Up With Assistance [RC] PFP Vital Signs [RC] PFP Chest 1V Frontal [CR] Stat Sodium Chloride 0.9% [Saline Flush] 10 ml FLUSH ASDIRECTED PRN Obtain Past Medical Record [OM.PC] Urgent Peripheral IV Insertion Adult [OM.PC] Stat Resuscitation Status Stat 04/05/16 03:22 EKG Documentation Completion [RC] ASDIRECTED Peripheral IV Care [RC] . DIRECTED 04/05/16 Breakfast Nothing per Oral Now Diet [DIET] Assessment:: As above Plan: As above. Extensive precautions were given to the patient and his , who are in agreement with the treatment plan. The patient's condition is stable enough for observation status and general supervision. Gwen morocho physician assumes care on 04/06.
[2016-04-05 04:09] LABS: CHLORIDE,CL 103 mmol/L (98-107); SODIUM,NA 139 mmol/L (136-145)
[2016-04-05] MEDS ORDERED: Cyclobenzaprine 10 MG Tab PO PRN (04:53)
[2016-04-05] MEDS ORDERED: hydrOXYzine HCl 50 MG Tab PO PRN (04:53)
[2016-04-05] MEDS ORDERED: Acetaminophen 325 MG Tab PO ONE (05:04)
[2016-04-05] MEDS ORDERED: Lactated Ringers 1,000 ML IV SCH ×2 (05:15→13:37)
[2016-04-05] MEDS ORDERED: Ferrous Sulfate 325 MG Tab PO SCH (07:30)
[2016-04-05] MEDS ORDERED: Cyanocobalamin (Vitamin B12) 1,000 MCG Tab PO SCH (08:00)
[2016-04-05] MEDS ORDERED: Lisinopril 5 MG Tab PO SCH (08:00)
[2016-04-05] MEDS ORDERED: Folic Acid 1 MG Tab PO SCH (08:00)
[2016-04-05] MEDS ORDERED: buPROPion 150 MG Tab.ER PO SCH (08:00)
[2016-04-05] MEDS ORDERED: Thiamine 100 MG Tab PO SCH (08:00)
[2016-04-05] MEDS ORDERED: DULoxetine 30 MG Cap PO SCH (08:00)
[2016-04-05] MEDS: Acetaminophen 500 MG Tab PO SCH ×2 (08:24→11:36)
[2016-04-05] MEDS: Gabapentin 300 MG Cap PO SCH ×2 (08:25→11:38)
[2016-04-05] MEDS ORDERED: Lactated Ringers 1,000 ML IV ONE (13:36)
[2016-04-05] MEDS ORDERED: Pantoprazole 40 MG Vial IVPUSH ONE (13:38)
--- NOTE | 2016-04-05 13:49 | PCM.DCSUM1 ---
Discharge Summary - Hospital Course HPI Initial Comments: See emergency room note/admission H&P Brief History: See emergency room note/admission H&P - Discharge Data Discharge Date: 04/05/16 Discharge Disposition: DC/Tfer to Acute Hospital 02 Condition: Good - Discharge Diagnosis/Problem(s) (1) Coronary artery disease SNOMED Code(s): 69806409 ICD Code: I25.10 - ATHSCL HEART DISEASE OF [place] CORONARY ARTERY W/O ANG PCTRS Status: Acute Priority: High Current Visit: Yes Problem Details: Serial cardiac enzymes x2 negative with no recurrence of patient's chest pain since admission. Secondary to progressive anemia as below chest discomfort may actually be a GI etiology including possible peptic ulcer versus esophageal varices. Multiple cardiac risk factors with continued artifactually elevated CK index secondary to low baseline CK with otherwise normal cardiac enzymes and EKG. Symptoms may have been aggravated by his recent progressive anemia as below, if his symptoms improve to be actually cardiac in etiology. Cardiology consultation depending on his clinical course. Chest pain protocol was initiated in the emergency room. Qualifiers: Coronary Disease-Associated Artery/Lesion type: [place] artery [place] vs. transplanted heart: [place] heart Associated angina: with unstable angina Qualified Code(s): I25.110 - Atherosclerotic heart disease of [place] coronary artery with unstable angina pectoris (2) Iron deficiency anemia SNOMED Code(s): 71399265 ICD Code: D50.9 - IRON DEFICIENCY ANEMIA, UNSPECIFIED Status: Acute Priority: High Current Visit: Yes Onset Date: ~04/05/16 Problem Details: Telephone consultation initially with [facility] at 13:30 hours with no beds available in that facility. Subsequent telephone consultation at 13:[address] Cavazos, hospitalist at [facility], who does agree to accept the patient for direct admission and further treatment and evaluation, with no further treatment recommendations given. Significant progressive anemia today with previous hemoglobin of 14.9 on 02/01/16 with hemoglobin of 10.2 on admission and further decrease to 9.3 earlier this morning. The patient has been compliant with his iron supplementation however mild persistent iron deficiency based on this morning's blood work. Note history of significant alcohol abuse with the patient becoming more symptomatic , including sinus tachycardia in the 140s just by sitting up in the bed with additional secondary dizziness. No fall or injury during this hospitalization. High-dose IV Pepcid given on arrival in the emergency room earlier this morning as below with IV fluids also initiated. Patient was given IV Protonix and a 1 L bolus of lactated Ringer's prior to transfer with continuation of IV fluids at a 100 cc per hour rate after this bolus. Secondary to symptomatic anemia and tachycardia GI consultation with possible emergent EGD should be strongly considered. Qualifiers: Iron deficiency anemia type: other iron deficiency Qualified Code(s): D50.8 - Other iron deficiency anemias (3) Lactic acid blood increased SNOMED Code(s): 7514822 ICD Code: R79.89 - OTHER SPECIFIED ABNORMAL FINDINGS OF BLOOD CHEMISTRY Status: Chronic Priority: Medium Current Visit: Yes Problem Details: Lactic acid on admission was mildly elevated with normal repeat lactic acid level later this morning. No clinical evidence of dehydration, sepsis, etc. (4) Peptic reflux disease SNOMED Code(s): 92699397 ICD Code: K21.9 - GASTRO-ESOPHAGEAL REFLUX DISEASE WITHOUT ESOPHAGITIS Status: Chronic Priority: Medium Current Visit: Yes Problem Details: Stable by history with no abdominal pain, including during this hospitalization despite progressive anemia. High-dose IV Pepcid given in the emergency room as GI prophylaxis. The patient has not been able to have a bowel movement to this point with no Hemoccults obtained (5) COPD (chronic obstructive pulmonary disease) SNOMED Code(s): 52274601 ICD Code: J44.9 - CHRONIC OBSTRUCTIVE PULMONARY DISEASE, UNSPECIFIED Status : Chronic Priority: Medium Current Visit: Yes Problem Details: No Recent fever, bronchitic-type symptoms, etc. Qualifiers: COPD type: emphysema Emphysema type: panlobular Qualified Code(s): J43.1 - Panlobular emphysema (6) Diabetes mellitus SNOMED Code(s): 88420116 ICD Code: E11.9 - TYPE 2 DIABETES MELLITUS WITHOUT COMPLICATIONS Status: Chronic Priority: Medium Current Visit: Yes Problem Details: Patient does not take Accu-Cheks, Glycosylated hemoglobin excellent today on admission Qualifiers: Diabetes mellitus type: type 2 Diabetes mellitus complication status: with neurologic complications Diabetes mellitus complication detail: with polyneuropathy Diabetes mellitus fci insulin use: without continuous churn buttermaker use Qualified Code(s): E11.42 - Type 2 diabetes mellitus with diabetic polyneuropathy (7) Hyperlipidemia SNOMED Code(s): 32479387 ICD Code: E78.5 - HYPERLIPIDEMIA, UNSPECIFIED Status: Chronic Priority: Medium Current Visit: Yes Problem Details: Lipid panel conducted this morning, however it is still incomplete secondary to reagent shortage Qualifiers: Hyperlipidemia type: unspecified Qualified Code(s): E78.5 - Hyperlipidemia , unspecified (8) Hypertension SNOMED Code(s): 64561126 ICD Code: I10 - ESSENTIAL (PRIMARY) HYPERTENSION Status: Chronic Priority : Medium Current Visit: Yes Problem Details: History of hypertension with persistent borderline hypotension since admission, including systolic blood pressures in the 100s. Continue IV fluids with caution as above. Qualifiers: Hypertension type: essential hypertension Qualified Code(s): I10 - Essential (primary) hypertension (9) Mixed anxiety and depressive disorder SNOMED Code(s): 900983187 ICD Code: F41.8 - OTHER SPECIFIED ANXIETY DISORDERS Status: Chronic Priority: Medium Current Visit: Yes Problem Details: Stable by history, although a long history of alcohol abuse with last use 2 weeks ago. Alcohol level is normal today on admission with no direct evidence of DTs during this hospitalization. Patient is still in counseling an outpatient alcohol treatment by his 's history (10) Sleep apnea SNOMED Code(s): 35302835 ICD Code: G47.30 - SLEEP APNEA, UNSPECIFIED Status: Chronic Priority: Medium Current Visit: Yes Problem Details: He has been compliant with his CPAP Qualifiers: Sleep apnea type: unspecified type Qualified Code(s): G47.30 - Sleep apnea , unspecified (11) Osteoarthritis SNOMED Code(s): 567650180 ICD Code: M19.90 - UNSPECIFIED OSTEOARTHRITIS, UNSPECIFIED SITE Status: Chronic Priority: Medium Current Visit: Yes Problem Details: Otherwise stable by history Qualifiers: Osteoarthritis location: multiple joints Osteoarthritis type: primary Qualified Code(s): M15.0 - Primary generalized (osteo)arthritis - Patient Summary/Data Operative Procedure(s) Performed: None Complications: Progressive anemia and sinus tachycardia as above Consults: None Labs Pending at D/C: Lipid panel, transferrin level Recommended Follow-up Testing/Procedures: EGD and/or colonoscopy Planned Operative Procedure(s) after DC: As above Hospital Course: The patient was initially admitted earlier this morning for standard rule out CT orders, however note progressive anemia both on admission and during this brief hospitalization as above. Chest pain completely resolved at time of admission with no recurrence during this hospitalization. Patient also denies any true abdominal pain despite his progressive anemia as above. Initial plans to keep the patient in this facility with completion of routine rule out CT orders and possible surgical consultation for EGD on 04/07. Secondary to patient' s worsening clinical findings, including refractory borderline hypotension and recurrent and progressive sinus tachycardia more emergent evaluation and care were required with patient transferred to [facility] in [place] as above. - Patient Instructions Diet: NPO Activity: Bedrest Driving: Do Not Drive Showering/Bathing: No Showering Notify Provider of: Increased Pain, Nausea and/or Vomiting Other/Special Instructions: Ambulance transfer with screening representative accompaniment - Discharge Plan Home Medications: Home Meds DULoxetine [Cymbalta] 30 mg PO DAILY 08/28/14 [History] Ferrous Sulfate 325 mg PO BIDMEALS 08/28/14 [History] Folic Acid 1 mg PO DAILY 08/28/14 [History] Gabapentin 600 mg PO QID 08/28/14 [History] Simvastatin 40 mg PO BEDTIME 08/28/14 [History] hydrOXYzine HCl [hydrOXYzine] 50 mg PO TID PRN 08/28/14 [History] Naltrexone 50 mg PO BEDTIME #30 tablet 11/17/14 [Rx] Liraglutide [Victoza] 1.8 mg SUBCUT DAILY 05/30/15 [History] Lisinopril 5 mg PO DAILY 05/30/15 [History] metFORMIN HCl [Metformin HCl ER] 1,000 mg PO BID 05/30/15 [History] Cyclobenzaprine [Flexeril] 10 mg PO TID PRN #30 tablet 02/01/16 [Rx] Multivitamins [Tab-A-Carrie] 1 tab PO DAILY 02/01/16 [History] Tamsulosin [Flomax] 0.4 mg PO BEDTIME 02/01/16 [History] Cyanocobalamin (Vitamin B-12) [Vitamin B-12] 1,000 mcg SL DAILY 03/08/16 [ History] Empagliflozin [Jardiance] 25 mg PO DAILY 03/08/16 [History] buPROPion [Wellbutrin XL] 150 mg PO DAILY 03/08/16 [History] Acetaminophen [Tylenol Extra Strength] 500 mg PO TID 04/05/16 [History] Forms: ED Department Discharge, Interfacility Transfer EMTALA Referrals: Yvon,Waleska D, [employer] [Primary Care Provider] - - Discharge Summary/Plan Comment DC Time >30 min.: Yes Discharge Summary/Plan Comment: As above. Extensive precautions were given to the patient, his , and his daughter, Jennifer, who are in agreement with the treatment plan. Ambulance transfer with screening representative accompaniment - General Info Date of Service: 04/05/16 Admission Dx/Problem (Free Text: See admission H&P/emergency room note Subjective Update: Progressive borderline hypotension, anemia, and sinus tachycardia as above Functional Status: Reports: pain controlled, tolerating diet (Patient did have lunch however is n.p.o. at this time), ambulating, urinating, new symptoms (As above), incentive spirometry Numeric/FACES Score: 0 - Review of Systems General: Reports: weakness, fatigue. Denies: no symptoms, fever, malaise, chills, night sweats, appetite HEENT: Reports: no symptoms. Denies: ear pain, eye pain, headaches, sinus congestion, sore throat, visual changes Pulmonary: Reports: no symptoms. Denies: shortness of breath, pleuritic chest pain, cough, wheezing Cardiovascular: Reports: chest pain, palpitations, dyspnea on exertion, lightheadedness. Denies: orthopnea, PND, edema Gastrointestinal: Reports: No symptoms, Other (No bowel movement during brief hospitalization). Denies: Abdominal pain, Constipation, Decreased appetite Genitourinary: Reports: no symptoms. Denies: dysuria, frequency, burning, pain , urgency, incontinence, hematuria, retention, flank pain Musculoskeletal: Reports: no symptoms. Denies: neck pain, shoulder pain, arm pain, back pain, leg pain Skin: Reports: pallor (Borderline). Denies: jaundice, diaphoresis, bruising, pruritis, rash Neurological: Reports: dizziness, difficulty walking (Secondary to dizziness), weakness, other (No DTs). Denies: headache, numbness, paresthesia, syncope, tingling, tremors, gait disturbance Psychiatric: Reports: no symptoms. Denies: confusion, depression, anxiety, agitation, hallucinations - Patient Data Vitals - Most Recent: Last Vital Signs Temp 36.2 C 04/05/16 12:00 Pulse 100 04/05/16 13:33 Resp 16 04/05/16 12:00 BP 110/68 04/05/16 13:33 Pulse Ox 98 02/28/17 12:00 Vital Signs - 24 hr 04/05/16 04/05/16 04/05/16 03:01 03:15 03:30 Temperature [ 36.4 C Oral] Pulse, 94 88 86 Peripheral [ Right Pulse Oximetry] Respiratory 18 17 19 Rate Blood Pressure Blood Pressure 116/73 107/76 118/82 [Right Upper Arm] O2 Sat by Pulse 96 96 100 Oximetry O2 Sat by Pulse Oximetry [ Nasal Cannula] 04/05/16 04/05/16 04/05/16 03:46 04:06 04:27 Temperature [ Oral] Pulse, 107 H 86 87 Peripheral [ Right Pulse Oximetry] Respiratory 20 16 17 Rate Blood Pressure Blood Pressure 113/71 123/78 114/76 [Right Upper Arm] O2 Sat by Pulse 100 100 100 Oximetry O2 Sat by Pulse Oximetry [ Nasal Cannula] 04/05/16 04/05/16 04/05/16 05:00 05:01 08:00 Temperature [ 37.0 C Oral] Pulse, 84 Peripheral [ Right Pulse Oximetry] Respiratory 20 Rate Blood Pressure Blood Pressure 101/74 [Right Upper Arm] O2 Sat by Pulse 100 97 Oximetry O2 Sat by Pulse 100 Oximetry [ Nasal Cannula] 04/05/16 04/05/16 04/05/16 08:28 10:00 12:00 Temperature [ 36.8 C 36.2 C Oral] Pulse, 82 106 H Peripheral [ Right Pulse Oximetry] Respiratory 18 16 Rate Blood Pressure 101/74 Blood Pressure 112/73 100/62 [Right Upper Arm] O2 Sat by Pulse 99 98 Oximetry O2 Sat by Pulse Oximetry [ Nasal Cannula] 04/05/16 13:33 Temperature [ Oral] Pulse, 100 Peripheral [ Right Pulse Oximetry] Respiratory Rate Blood Pressure Blood Pressure 110/68 [Right Upper Arm] O2 Sat by Pulse Oximetry O2 Sat by Pulse Oximetry [ Nasal Cannula] Weight - Most Recent: 94.347 kg I&O - Last 24 hours: Intake & Output 04/04/16 04/05/16 04/05/16 22:59 06:59 14:59 Intake Total 120 Output Total 675 Balance -555 Imaging Impressions - Last 24 hrs: colorist formulator shows sinus tachycardia with heart rates in the 90s to 140s depending on activity level as above Lab Results - Last 24 hrs: Laboratory Results - last 24 hr 04/05/16 04/05/16 04/05/16 Range/Units 09:40 09:40 09:40 WBC 7.7 (4.0-10.2) K/uL RBC 2.94 L (4.33-5.41) M/uL Hgb 9.3 L (13.1-16.8) g/dL Hct 28.4 L (39.0-49.0) % MCV 96.6 (84.0-98.0) fL MCH 31.6 (28.2-33.3) pg MCHC 32.7 (31.7-36.0) g/dL RDW 15.6 H (11.2-14.1) % Plt Count 249 (150-350) K/uL Neut % (Auto) 60.5 (45.0-80.0) % Lymph % (Auto) 28.1 (10.0-50.0) % [place] % (Auto) 9.8 (2.0-14.0) % Eos % (Auto) 0.9 (0.0-5.0) % Baso % (Auto) 0.7 (0.0-2.0) % Neut # 4.63 (1.40-7.00) K/uL Lymph # 2.15 (0.50-3.50) K/uL [place] # 0.75 (0.00-1.00) K/uL Eos # 0.07 (0.00-0.50) K/uL Baso # 0.05 (0.00-0.20) K/uL POC Glucose (65-110) mg/dl Lactic Acid (0.4-2.0) mmol/L Creatine Kinase 14 L (26-308) U/L Creatine Kinase Index 5.0 H* (0.0-2.5) % CK-MB (CK-2) 0.70 (0.00-3.60) ng/mL Troponin I 0.000 (0.000-0.056) ng/mL Cholesterol 138 (100-200) mg/dL HDL Cholesterol 47 (40-60) mg/dL Vitamin B12 612 (193-986) pg/mL Folate 21.2 (8.6-58.9) ng/mL 04/05/16 04/05/16 Range/Units 09:40 11:36 WBC (4.0-10.2) K/uL RBC (4.33-5.41) M/uL Hgb (13.1-16.8) g/dL Hct (39.0-49.0) % MCV (84.0-98.0) fL MCH (28.2-33.3) pg MCHC (31.7-36.0) g/dL RDW (11.2-14.1) % Plt Count (150-350) K/uL Neut % (Auto) (45.0-80.0) % Lymph % (Auto) (10.0-50.0) % [place] % (Auto) (2.0-14.0) % Eos % (Auto) (0.0-5.0) % Baso % (Auto) (0.0-2.0) % Neut # (1.40-7.00) K/uL Lymph # (0.50-3.50) K/uL [place] # (0.00-1.00) K/uL Eos # (0.00-0.50) K/uL Baso # (0.00-0.20) K/uL POC Glucose 98 (65-110) mg/dl Lactic Acid 1.0 (0.4-2.0) mmol/L Creatine Kinase (26-308) U/L Creatine Kinase Index (0.0-2.5) % CK-MB (CK-2) (0.00-3.60) ng/mL Troponin I (0.000-0.056) ng/mL Cholesterol (100-200) mg/dL HDL Cholesterol (40-60) mg/dL Vitamin B12 (193-986) pg/mL Folate (8.6-58.9) ng/mL Laboratory Tests 04/05/16 04/05/16 04/05/16 Range/Units 03:35 03:35 03:35 WBC 7.0 (4.0-10.2) K/uL RBC 3.25 L (4.33-5.41) M/uL Hgb 10.2 L D (13.1-16.8) g/dL Hct 31.1 L (39.0-49.0) % MCV 95.7 D (84.0-98.0) fL MCH 31.4 (28.2-33.3) pg MCHC 32.8 (31.7-36.0) g/dL RDW 15.8 H (11.2-14.1) % Plt Count 277 D (150-350) K/uL Neut % (Auto) 61.4 (45.0-80.0) % Lymph % (Auto) 24.6 (10.0-50.0) % [place] % (Auto) 12.0 (2.0-14.0) % Eos % (Auto) 1.0 (0.0-5.0) % Baso % (Auto) 1.0 (0.0-2.0) % Neut # 4.29 (1.40-7.00) K/uL Lymph # 1.72 (0.50-3.50) K/uL [place] # 0.84 (0.00-1.00) K/uL Eos # 0.07 (0.00-0.50) K/uL Baso # 0.07 (0.00-0.20) K/uL PT 10.4 (9.8-11.7) SEC INR 1.0 APTT 22.1 L (23.5-30.0) SEC D-Dimer, Quantitative 216 (0-400) ng/mL Sodium (136-145) mmol/L Potassium (3.5-5.1) mmol/L Chloride (98-107) mmol/L Carbon Dioxide (21.0-32.0) mmol/L BUN (7-18) mg/dL Creatinine (0.51-1.17) mg/dL Est Cr Clr Drug Dosing mL/min Estimated GFR (MDRD) mL/min Glucose (74-106) mg/dL POC Glucose (65-110) mg/dl Hemoglobin A1c (4.3-5.7) % Lactic Acid (0.4-2.0) mmol/L Uric Acid (2.6-7.2) mg/dL Calcium (8.5-10.1) mg/dL Magnesium (1.8-2.4) mg/dL Iron (50-175) ug/dL TIBC (250-450) ug/dL % Saturation Ferritin (8-388) ng/mL Total Bilirubin (0.2-1.0) mg/dL AST (15-37) U/L ALT (12-78) U/L Alkaline Phosphatase (46-116) IU/L Creatine Kinase (26-308) U/L Creatine Kinase Index (0.0-2.5) % CK-MB (CK-2) (0.00-3.60) ng/mL Troponin I (0.000-0.056) ng/mL Lcp-D-Ebwtouomuic Pept (0-125) pg/mL Total Protein (6.4-8.2) g/dL Albumin (3.4-5.0) g/dL Cholesterol (100-200) mg/dL HDL Cholesterol (40-60) mg/dL Vitamin B12 (193-986) pg/mL Folate (8.6-58.9) ng/mL TSH, Ultra Sensitive (0.358-3.740) mIU/mL Ethyl Alcohol (0.000-0.080) g/dL H. pylori IgG Antibody (NEGATIVE) 04/05/16 04/05/16 04/05/16 Range/Units 03:35 03:35 03:35 WBC (4.0-10.2) K/uL RBC (4.33-5.41) M/uL Hgb (13.1-16.8) g/dL Hct (39.0-49.0) % MCV (84.0-98.0) fL MCH (28.2-33.3) pg MCHC (31.7-36.0) g/dL RDW (11.2-14.1) % Plt Count (150-350) K/uL Neut % (Auto) (45.0-80.0) % Lymph % (Auto) (10.0-50.0) % [place] % (Auto) (2.0-14.0) % Eos % (Auto) (0.0-5.0) % Baso % (Auto) (0.0-2.0) % Neut # (1.40-7.00) K/uL Lymph # (0.50-3.50) K/uL [place] # (0.00-1.00) K/uL Eos # (0.00-0.50) K/uL Baso # (0.00-0.20) K/uL PT (9.8-11.7) SEC INR APTT (23.5-30.0) SEC D-Dimer, Quantitative (0-400) ng/mL Sodium 139 (136-145) mmol/L Potassium 4.3 (3.5-5.1) mmol/L Chloride 103 (98-107) mmol/L Carbon Dioxide 24.6 (21.0-32.0) mmol/L BUN 39 H D (7-18) mg/dL Creatinine 0.74 (0.51-1.17) mg/dL Est Cr Clr Drug Dosing 100.85 mL/min Estimated GFR (MDRD) > 60 mL/min Glucose 120 H (74-106) mg/dL POC Glucose (65-110) mg/dl Hemoglobin A1c (4.3-5.7) % Lactic Acid 2.9 H (0.4-2.0) mmol/L Uric Acid 4.7 (2.6-7.2) mg/dL Calcium 8.2 L (8.5-10.1) mg/dL Magnesium 1.9 (1.8-2.4) mg/dL Iron (50-175) ug/dL TIBC (250-450) ug/dL % Saturation Ferritin (8-388) ng/mL Total Bilirubin 0.4 (0.2-1.0) mg/dL AST 16 (15-37) U/L ALT 29 (12-78) U/L Alkaline Phosphatase 71 (46-116) IU/L Creatine Kinase 18 L (26-308) U/L Creatine Kinase Index 4.4 H* (0.0-2.5) % CK-MB (CK-2) 0.80 (0.00-3.60) ng/mL Troponin I 0.000 (0.000-0.056) ng/mL Wou-U-Zlrzozcntrt Pept 6 (0-125) pg/mL Total Protein 6.4 (6.4-8.2) g/dL Albumin 3.4 (3.4-5.0) g/dL Cholesterol (100-200) mg/dL HDL Cholesterol (40-60) mg/dL Vitamin B12 (193-986) pg/mL Folate (8.6-58.9) ng/mL TSH, Ultra Sensitive 2.822 (0.358-3.740) mIU/mL Ethyl Alcohol (0.000-0.080) g/dL H. pylori IgG Antibody Negative (NEGATIVE) 04/05/16 04/05/16 04/05/16 Range/Units 03:35 03:35 03:45 WBC (4.0-10.2) K/uL RBC (4.33-5.41) M/uL Hgb (13.1-16.8) g/dL Hct (39.0-49.0) % MCV (84.0-98.0) fL MCH (28.2-33.3) pg MCHC (31.7-36.0) g/dL RDW (11.2-14.1) % Plt Count (150-350) K/uL Neut % (Auto) (45.0-80.0) % Lymph % (Auto) (10.0-50.0) % [place] % (Auto) (2.0-14.0) % Eos % (Auto) (0.0-5.0) % Baso % (Auto) (0.0-2.0) % Neut # (1.40-7.00) K/uL Lymph # (0.50-3.50) K/uL [place] # (0.00-1.00) K/uL Eos # (0.00-0.50) K/uL Baso # (0.00-0.20) K/uL PT (9.8-11.7) SEC INR APTT (23.5-30.0) SEC D-Dimer, Quantitative (0-400) ng/mL Sodium (136-145) mmol/L Potassium (3.5-5.1) mmol/L Chloride (98-107) mmol/L Carbon Dioxide (21.0-32.0) mmol/L BUN (7-18) mg/dL Creatinine (0.51-1.17) mg/dL Est Cr Clr Drug Dosing mL/min Estimated GFR (MDRD) mL/min Glucose (74-106) mg/dL POC Glucose (65-110) mg/dl Hemoglobin A1c 4.9 (4.3-5.7) % Lactic Acid (0.4-2.0) mmol/L Uric Acid (2.6-7.2) mg/dL Calcium (8.5-10.1) mg/dL Magnesium (1.8-2.4) mg/dL Iron 39 L (50-175) ug/dL TIBC 397 (250-450) ug/dL % Saturation [id number] Ferritin 16 (8-388) ng/mL Total Bilirubin (0.2-1.0) mg/dL AST (15-37) U/L ALT (12-78) U/L Alkaline Phosphatase (46-116) IU/L Creatine Kinase (26-308) U/L Creatine Kinase Index (0.0-2.5) % CK-MB (CK-2) (0.00-3.60) ng/mL Troponin I (0.000-0.056) ng/mL Uke-Q-Ftqvtlikhcg Pept (0-125) pg/mL Total Protein (6.4-8.2) g/dL Albumin (3.4-5.0) g/dL Cholesterol (100-200) mg/dL HDL Cholesterol (40-60) mg/dL Vitamin B12 (193-986) pg/mL Folate (8.6-58.9) ng/mL TSH, Ultra Sensitive (0.358-3.740) mIU/mL Ethyl Alcohol 0.003 (0.000-0.080) g/dL H. pylori IgG Antibody (NEGATIVE) 04/05/16 04/05/16 04/05/16 Range/Units 09:40 09:40 09:40 WBC 7.7 (4.0-10.2) K/uL RBC 2.94 L (4.33-5.41) M/uL Hgb 9.3 L (13.1-16.8) g/dL Hct 28.4 L (39.0-49.0) % MCV 96.6 (84.0-98.0) fL MCH 31.6 (28.2-33.3) pg MCHC 32.7 (31.7-36.0) g/dL RDW 15.6 H (11.2-14.1) % Plt Count 249 (150-350) K/uL Neut % (Auto) 60.5 (45.0-80.0) % Lymph % (Auto) 28.1 (10.0-50.0) % [place] % (Auto) 9.8 (2.0-14.0) % Eos % (Auto) 0.9 (0.0-5.0) % Baso % (Auto) 0.7 (0.0-2.0) % Neut # 4.63 (1.40-7.00) K/uL Lymph # 2.15 (0.50-3.50) K/uL [place] # 0.75 (0.00-1.00) K/uL Eos # 0.07 (0.00-0.50) K/uL Baso # 0.05 (0.00-0.20) K/uL PT (9.8-11.7) SEC INR APTT (23.5-30.0) SEC D-Dimer, Quantitative (0-400) ng/mL Sodium (136-145) mmol/L Potassium (3.5-5.1) mmol/L Chloride (98-107) mmol/L Carbon Dioxide (21.0-32.0) mmol/L BUN (7-18) mg/dL Creatinine (0.51-1.17) mg/dL Est Cr Clr Drug Dosing mL/min Estimated GFR (MDRD) mL/min Glucose (74-106) mg/dL POC Glucose (65-110) mg/dl Hemoglobin A1c (4.3-5.7) % Lactic Acid (0.4-2.0) mmol/L Uric Acid (2.6-7.2) mg/dL Calcium (8.5-10.1) mg/dL Magnesium (1.8-2.4) mg/dL Iron (50-175) ug/dL TIBC (250-450) ug/dL % Saturation Ferritin (8-388) ng/mL Total Bilirubin (0.2-1.0) mg/dL AST (15-37) U/L ALT (12-78) U/L Alkaline Phosphatase (46-116) IU/L Creatine Kinase 14 L (26-308) U/L Creatine Kinase Index 5.0 H* (0.0-2.5) % CK-MB (CK-2) 0.70 (0.00-3.60) ng/mL Troponin I 0.000 (0.000-0.056) ng/mL Qaj-K-Xzfnjpwnbok Pept (0-125) pg/mL Total Protein (6.4-8.2) g/dL Albumin (3.4-5.0) g/dL Cholesterol 138 (100-200) mg/dL HDL Cholesterol 47 (40-60) mg/dL Vitamin B12 612 (193-986) pg/mL Folate 21.2 (8.6-58.9) ng/mL TSH, Ultra Sensitive (0.358-3.740) mIU/mL Ethyl Alcohol (0.000-0.080) g/dL H. pylori IgG Antibody (NEGATIVE) 04/05/16 04/05/16 Range/Units 09:40 11:36 WBC (4.0-10.2) K/uL RBC (4.33-5.41) M/uL Hgb (13.1-16.8) g/dL Hct (39.0-49.0) % MCV (84.0-98.0) fL MCH (28.2-33.3) pg MCHC (31.7-36.0) g/dL RDW (11.2-14.1) % Plt Count (150-350) K/uL Neut % (Auto) (45.0-80.0) % Lymph % (Auto) (10.0-50.0) % [place] % (Auto) (2.0-14.0) % Eos % (Auto) (0.0-5.0) % Baso % (Auto) (0.0-2.0) % Neut # (1.40-7.00) K/uL Lymph # (0.50-3.50) K/uL [place] # (0.00-1.00) K/uL Eos # (0.00-0.50) K/uL Baso # (0.00-0.20) K/uL PT (9.8-11.7) SEC INR APTT (23.5-30.0) SEC D-Dimer, Quantitative (0-400) ng/mL Sodium (136-145) mmol/L Potassium (3.5-5.1) mmol/L Chloride (98-107) mmol/L Carbon Dioxide (21.0-32.0) mmol/L BUN (7-18) mg/dL Creatinine (0.51-1.17) mg/dL Est Cr Clr Drug Dosing mL/min Estimated GFR (MDRD) mL/min Glucose (74-106) mg/dL POC Glucose 98 (65-110) mg/dl Hemoglobin A1c (4.3-5.7) % Lactic Acid 1.0 (0.4-2.0) mmol/L Uric Acid (2.6-7.2) mg/dL Calcium (8.5-10.1) mg/dL Magnesium (1.8-2.4) mg/dL Iron (50-175) ug/dL TIBC (250-450) ug/dL % Saturation Ferritin (8-388) ng/mL Total Bilirubin (0.2-1.0) mg/dL AST (15-37) U/L ALT (12-78) U/L Alkaline Phosphatase (46-116) IU/L Creatine Kinase (26-308) U/L Creatine Kinase Index (0.0-2.5) % CK-MB (CK-2) (0.00-3.60) ng/mL Troponin I (0.000-0.056) ng/mL [id number] Pept (0-125) pg/mL Total Protein (6.4-8.2) g/dL Albumin (3.4-5.0) g/dL Cholesterol (100-200) mg/dL HDL Cholesterol (40-60) mg/dL Vitamin B12 (193-986) pg/mL Folate (8.6-58.9) ng/mL TSH, Ultra Sensitive (0.358-3.740) mIU/mL Ethyl Alcohol (0.000-0.080) g/dL H. pylori IgG Antibody (NEGATIVE) [facility]ILEE Results - Last 24 hrs: None Med Orders - Current: Current Medications Acetaminophen (Tylenol Extra Strength) 500 mg PO TID [facility] Last Admin: 04/05/16 11:36 Dose: 500 mg Bupropion HCl (Wellbutrin Xl) 150 mg PO DAILY [facility] Last Admin: 04/05/16 08:25 Dose: 150 mg Cyanocobalamin (Vitamin B12) 1,000 mcg PO DAILY [facility] Last Admin: 04/05/16 08:23 Dose: 1,000 mcg Cyclobenzaprine HCl (Flexeril) 10 mg PO TID PRN PRN Reason: Spasms Duloxetine HCl (Cymbalta) 30 mg PO DAILY [facility] Last Admin: 04/05/16 08:24 Dose: 30 mg Ferrous Sulfate (Ferrous Sulfate) 325 mg PO BIDMEALS [facility] Last Admin: 04/05/16 08:26 Dose: 325 mg Folic Acid (Folic Acid) 1 mg PO DAILY [facility] Last Admin: 04/05/16 08:26 Dose: 1 mg Gabapentin (Neurontin) 600 mg PO QID [facility] Last Admin: 04/05/16 11:38 Dose: 600 mg Hydroxyzine HCl (Atarax) 50 mg PO TID PRN PRN Reason: Anxiety Lactated Ringer's (Ringers, Lactated) 1,000 mls @ 999 mls/hr IV .BOLUS ONE Stop: 04/05/16 14:36 Lactated Ringer's (Ringers, Lactated) 1,000 mls @ 100 mls/hr IV ASDIRECTED [facility] Lisinopril (Prinivil) 5 mg PO DAILY [facility] Last Admin: 04/05/16 08:28 Dose: 5 mg Metformin HCl (Glucophage Xr) 1,000 mg PO BID [facility] Empagliflozin [ Jardiance] 25 Mg Ptom 25 mg PO DAILY [facility] Liraglutide [Victoza (] 6mg/Ml) 1.8 mg SUBCUT DAILY [facility] Naltrexone [ Naltrexone] 50 Mg Tablets Ptom 50 mg PO BEDTIME [facility] Simvastatin (Zocor) 40 mg PO BEDTIME [facility] Sodium Chloride (Saline Flush) 10 ml FLUSH ASDIRECTED PRN PRN Reason: Keep Vein Open Last Admin: 04/05/16 03:55 Dose: 10 ml Sodium Chloride (Saline Flush) 10 ml FLUSH Q12H PRN PRN Reason: Keep Vein Open Tamsulosin HCl (Flomax) 0.4 mg PO BEDTIME [facility] Thiamine HCl (Vitamin B-1) 100 mg PO DAILY [facility] Last Admin: 04/05/16 08:24 Dose: 100 mg Discontinued Medications Acetaminophen (Tylenol) 650 mg PO NOW ONE Stop: 04/05/16 05:05 Last Admin: 04/05/16 05:14 Dose: 650 mg Aspirin (Aspirin) 324 mg CHEW ONETIME ONE Stop: 04/05/16 03:20 Last Admin: 04/05/16 03:50 Dose: 324 mg Clopidogrel Bisulfate (Plavix) 300 mg PO ONETIME ONE Stop: 04/05/16 03:20 Last Admin: 04/05/16 03:51 Dose: 300 mg Famotidine (Pepcid) 40 mg IVPUSH ONETIME ONE Stop: 04/05/16 03:20 Last Admin: 04/05/16 03:53 Dose: 40 mg Lactated Ringer's (Ringers, Lactated) 1,000 mls @ 75 mls/hr IV ASDIRECTED [facility] Last Admin: 04/05/16 06:00 Dose: 75 mls/hr Pantoprazole Sodium (Protonix Iv) 40 mg IVPUSH ONETIME ONE Stop: 04/05/16 13:39 - Exam Quality Assessment: Reports: supplemental oxygen, DVT prophylaxis. Denies: central line/PICC, urine catheter, skin breakdown, restraints General: Reports: alert, oriented, cooperative, no acute distress HEENT: Reports: Pupils equal, Pupils reactive, EOMI, Mucous membr. moist/pink Neck: Reports: supple, trachea midline, no JVD, no thyromegaly. Denies: lymphadenopathy Lungs: Reports: Clear to auscultation, Normal respiratory effort Cardiovascular: Reports: regular rhythm, no murmurs, tachycardia (Intermittent as above). Denies: gallops, rubs Abdomen: Reports: bowel sounds present, soft, no tenderness, no distension. Denies: guarding, CVA tenderness (Male) Exam: Deferred Rectal (Males) Exam: Deferred Back Exam: Reports: normal inspection, full range of motion. Denies: CVA tenderness (L), CVA tenderness (R), muscle spasm Extremities: Reports: no edema, normal pulses, no tenderness/swelling, no calf tenderness Skin: Reports: warm, dry, intact, other (Borderline pallor). Denies: ecchymosis Neurological: Reports: no new focal deficit, other (Mild to moderate clinical orthostasis) Psy/Mental Status: Reports: alert, normal affect, normal mood. Denies: agitated , hallucinations, withdrawal symptoms *Q Meaningful Use (DIS) - VTE *Q VTE Criteria *Q: - Stroke *Q Stroke Criteria *Q: - AMI *Q AMI Criteria *Q:
[2016-04-05 14:25] VITALS: BP 102/68
[2016-04-05] MEDS ORDERED: metFORMIN 500 MG Tab.ER PO SCH (18:00)
[2016-04-05] MEDS ORDERED: Simvastatin 20 MG Tab PO SCH (20:00)
[2016-04-05] MEDS ORDERED: NALTREXONE 50 MG PO SCH (20:00)
[2016-04-05] MEDS ORDERED: Tamsulosin 0.4 MG Cap.ER PO SCH (20:00)
[2016-04-06] MEDS ORDERED: LIRAGLUTIDE 6 MG/ML SUBCUT SCH (08:00)
[2016-04-06] MEDS ORDERED: EMPAGLIFLOZIN 25 MG PO SCH (08:00)
== END 2016-04-05 14:30 ==
LOC: LL.ED 02:54 → LL.MS 04:19
PROVIDERS: ADMIT Family Medicine; ATTEND Family Medicine
DX: I25.110 Atherosclerotic heart disease of native coronary artery with unstable angina pectoris (principal); D50.8 Other iron deficiency anemias; R79.89 Other specified abnormal findings of blood chemistry; K21.9 Gastro-esophageal reflux disease without esophagitis; J43.1 Panlobular emphysema; E11.42 Type 2 diabetes mellitus with diabetic polyneuropathy; E78.5 Hyperlipidemia, unspecified; I10 Essential (primary) hypertension; F41.8 Other specified anxiety disorders; G47.30 Sleep apnea, unspecified; M15.0 Primary generalized (osteo)arthritis; Z79.899 Other long term (current) drug therapy; Z88.8 Allergy status to other drugs, medicaments and biological substances; Z98.84 Bariatric surgery status; Z90.49 Acquired absence of other specified parts of digestive tract; Z98.890 Other specified postprocedural states; Z96.649 Presence of unspecified artificial hip joint; Z96.659 Presence of unspecified artificial knee joint; Z87.891 Personal history of nicotine dependence
CPT/HCPCS: 36415; 71010; 80053; 80061; 82550; 82553; 82607; 82728; 82746; 82962; 83036; 83540; 83550; 83605; 83735; 83880; 84443; 84466; 84484; 84550; 85025; 85379; 85610; 85730; 86318; 93005; 96361; 96374; 96375; 99285; A9270; C9113; G0378; G0480; J7050; J7120; S0028

== ENCOUNTER 2017-01-02 14:52 | Inpatient (IN) | payer MEDICARE, BC ==
--- NOTE | 2017-01-02 16:12 | PCM.HP ---
H&P History of Present Illness - General Date of Service: 01/02/17 Admit Problem/Dx: Admission Diagnosis/Problem Admission Diagnosis/Problem Fusion of lumbar spine Source of Information: Patient History Limitations: Reports: No Limitations - History of Present Illness Initial Comments - Free Text/Narative: Patient recently discharge last from [facility] after undergoing lumbar spine fusion. Did try to make it on his own at home with the assistance of his /daughter over the weekend. Daughter did have to return to work and not up to task of being available around the clock to help patient with cares/ food/ADLs. He presents for [facility] admission which will give him the needed assistance as well as OT and PT therapy. He has no new complaints since being discharged from [facility]. Patient is to wear back brace at all times except for when he showers and gets dressing changes. He also has had to have a Barajas due to inability to void on own since surgery. This has happened to him in the past after surgeries, and eventually he is able to void on his own. [place] are to be removed on January 06. He is to follow up again at [facility] on February 07. back Pain Score (Numeric/FACES): 5 - Related Data Allergies/Adverse Reactions: Allergies Allergy/AdvReac Type Severity Reaction Status Date / Time aspirin Allergy Other Verified 01/02/17 15:42 Home Medications: Home Meds DULoxetine [Cymbalta] 30 mg PO DAILY 08/28/14 [History] Ferrous Sulfate 325 mg PO BIDMEALS 08/28/14 [History] Folic Acid 1 mg PO DAILY 08/28/14 [History] Gabapentin 300 mg PO BID 08/28/14 [History] Naltrexone 50 mg PO BEDTIME #30 tablet 11/17/14 [Rx] Liraglutide [Victoza] 1.8 mg SUBCUT DAILY@1200 05/30/15 [History] metFORMIN HCl [Metformin HCl ER] 1,000 mg PO BID 05/30/15 [History] Multivitamins [Tab-A-Carrie] 1 tab PO DAILY 02/01/16 [History] Tamsulosin [Flomax] 0.4 mg PO BEDTIME 02/01/16 [History] buPROPion [Wellbutrin XL] 150 mg PO DAILY 03/08/16 [History] Metoprolol Tartrate [Lopressor] 12.5 mg PO BID 11/03/16 [History] Acetaminophen 650 mg PO Q4HR PRN 01/02/17 [History] Cyanocobalamin (Vitamin B-12) [B-12] 1,000 mcg PO DAILY 01/02/17 [History] Docusate Sodium/Sennosides [Senna Plus] 1 tab PO BID PRN 01/02/17 [History] Non-Formulary Medication [NF Drug] 1 tab PO BID 01/02/17 [History] Simvastatin [Zocor] 40 mg PO BEDTIME 01/02/17 [History] Vitamin B Complex [Super B-50 Complex] 1 tab PO DAILY 01/02/17 [History] hydrOXYzine Pamoate [Hydroxyzine Pamoate] 50 mg PO TID PRN 01/02/17 [History] oxyCODONE HCl/Acetaminophen [Endocet 5-325 Tablet] 1 tab PO Q4HR PRN 01/02/17 [ History] tiZANidine HCl [Zanaflex] 2 mg PO TID PRN 01/02/17 [History] Past Medical History HEENT History: Reports: Hard of Hearing, Impaired Vision Other HEENT History: Reading glasses despite previous LASIK surgery, mild borderline presbycusis with no therapy Cardiovascular History: Reports: Afib, Arrhythmia, CAD, Heart Murmur, High Cholesterol, Hypertension, Other (See Below) Other Cardiovascular History: Atrial fibrillation versus PSVT with status post ablation as below, incomplete right bundle branch block, dyslipidemia, hypertensive cardiomegaly, mild diffuse valvular disease, PACs, Respiratory History: Reports: COPD, Sleep Apnea, Other (See Below) Other Respiratory History: Restless leg syndrome Gastrointestinal History: Reports: Cholelithiasis, Colon Polyp, Diverticulosis, Gastritis, GERD, Hemorrhoids, Hiatal Hernia, PUD, Other (See Below) Other Gastrointestinal History: recurrent rectal fissures/fistulas, Gilbert's syndrome, mild colitis, gastritis, esophagitis, and duodenitis; hyperplastic colonic polyp at 30 cm on 03/12/2001, fatty liver Genitourinary History: Reports: BPH Musculoskeletal History: Reports: Arthritis, Back Pain, Chronic, Fracture, Gout , Neck Pain, Chronic, Osteoarthritis, Other (See Below) Other Musculoskeletal History: Left wrist fracture on 08/29/09 with fixation as below, right thumb fracture in about 1999 with surgery as below, vertebral body compression fractures of T5, T7, and T8-T10 with mild scoliosis by CT scan Neurological History: Reports: Neuropathy, Diabetic, Neuropathy, Peripheral, Other (See Below) Other Neuro History: No history of DTs or seizures from alcohol use, mild cerebrovascular disease by CT scan of the head as below Psychiatric History: Reports: Addiction, Anxiety, Depression, Psych Hospitalization(s), Other (See Below) Other Psychiatric History: Alcohol abuse with previous history of alcohol treatment including inpatient detoxification in January 2016 through February 2015 for 2 weeks, previous tobacco and and chronic narcotic use, chronic insomnia Endocrine/Metabolic History: Reports: Diabetes, Type II, Other (See Below) Other Endocrine/Metabolic History: Diabetes mellitus-diet controlled with previous history of occasional hypoglycemia and current medication program for weight loss Hematologic History: Reports: Anemia, B12 Deficiency, Folic Acid, Iron Deficiency, Polycythemia Immunologic History: Reports: None Oncologic (Cancer) History: Reports: None Dermatologic History: Reports: None - Infectious Disease History Infectious Disease History: Reports: Chicken Pox, Measles, Mumps - Past Surgical History Head Surgeries/Procedures: Reports: None HEENT Surgical History: Reports: Eye Surgery, LASIK, Oral Surgery, Other (See Below) Cardiovascular Surgical History: Reports: Cardiac Ablation, Other (See Below) GI Surgical History: Reports: Bariatric Procedure, Cholecystectomy, Colonoscopy , EGD, Polypectomy, Other (See Below) Male Surgical History: Reports: Circumcision, Vasectomy, Other (See Below) Musculoskeletal Surgical History: Reports: Carpal Tunnel, Hip Replacement, Knee Replacement, ORIF - Past Imaging History Past Imaging History: Reports: Cardiac Echo, CAT Scan, MRI, Sleep Study, Stress Testing, Ultrasound, Other (See Below) Social & Family History - Family History HEENT: Reports: Macular Degeneration, Other (See Below) Other HEENT Family History: Mother with macular degeneration Cardiac: Reports: Blood Clots/VTE/DVT, Bypass, CAD, Heart Failure, Heart Murmur , Heart Valve Replacement, High Cholesterol, Hypertension, PA, Other (See Below) Other Cardiac Family History: Mother with three-vessel CABG at age 73 with CHF, valvular surgery, and possible previous PA, hypertension in mother and 2 brothers, brother with hyperlipidemia, mother with history of DVT in the legs in her 60s Respiratory: Reports: None GI: Reports: Cholelithiasis, Other (See Below) Other GI Family History: Mother with cholelithiasis : Reports: None OBGYN: Reports: None Musculoskeletal: Reports: Arthritis, Gout, Osteoarthritis, Osteoporosis, Other ( See Below) Other Musculoskeletal Family History: Maternal aunt with osteoarthritis, brother with gout Neurological: Reports: Alzheimers Disease, CVA, Dementia, Other (See Below) Other Neurological Family History: Mother with CVA in her 70s and history of Alzheimer's disease Psychiatric: Reports: Anxiety, Depression, Suicide Attempt, Other (See Below) Other Psychiatric Family History: Father and sister with history of alcohol abuse and anxiety depression which did require alcohol treatment and hospitalizations, father with history of suicide attempt, Endocrine/Metabolic: Reports: Diabetes, type II, Other (See Below) Other Endocrine/Metabolic Family History: Borderline diabetes mellitus in father Hematologic: Reports: None Immunologic: Reports: None Dermatologic: Reports: None Oncologic: Reports: Breast, Lung, Other (See Below) Other Oncologic Family History: Paternal aunt with lung cancer fatal in her 60s with limited previous tobacco use, paternal cousin with lung cancer at age 56 likely secondary to tobacco use, sister with breast cancer in her 50s - Tobacco Use Smoking Status *Q: Former Smoker Years of Tobacco use: 30 Packs/Tins Daily: 2 Used Tobacco, but Quit: Yes Month Tobacco Last Used: Started smoking at age 17 with no use since 02/11/1999 Second Hand Smoke Exposure: No - Caffeine Use Caffeine Use: Reports: Soda - Alcohol Use Alcohol Use History: Yes Days Per Week of Alcohol Use: 7 Number of Drinks Per Day: 2 Total Drinks Per Week: 14 Alcohol Use Comment: Alcohol dependence/abuse by history. Has been sober for 2 months. - Recreational Drug Use Recreational Drug Use: No Drug Use in Last 12 Months: No - Living Situation & Occupation Living situation: Reports: , with Family Occupation: Retired H&P Review of Systems - Review of Systems: Review Of Systems: See Below General: Reports: Decreased Appetite. Denies: Fever, Chills, Malaise, Weakness , Fatigue, Night Sweats, Diaphoresis HEENT: Reports: No Symptoms Pulmonary: Reports: No Symptoms. Denies: Shortness of Breath, Cough Cardiovascular: Reports: No Symptoms Gastrointestinal: Reports: Decreased Appetite, Other (has had loose stools since surgery). Denies: Abdominal Pain, Constipation, Difficulty Swallowing, Distension, Hematochezia, Melena, Nausea, Vomiting Genitourinary: Reports: Retention Musculoskeletal: Reports: Back Pain Skin: Reports: No Symptoms, Other (Suture site in lumbar area) Psychiatric: Reports: No Symptoms Neurological: Reports: No Symptoms Hematologic/Lymphatic: Reports: Other (recent blood transfusions s/p surgery) Exam - Exam Exam: See Below - Vital Signs Vital Signs: Last Vital Signs Temp 36.8 C 01/02/17 14:54 Pulse 62 01/02/17 14:54 Resp 20 01/02/17 14:54 BP 124/76 01/02/17 14:54 Pulse Ox 93 L 01/02/17 14:54 Weight: 107.456 kg - Exam General: Alert, Oriented, Cooperative HEENT: Conjunctiva Clear, EOMI, Mucosa Moist & [place], Pupils Equal, Pupils Reactive Neck: Supple, Trachea Midline, +2 Carotid Pulse wo Bruit, Full Range of Motion. No: Lymphadenopathy, Carotid Bruit Lungs: Normal Respiratory Effort, Rhonchi (scattered faint rhonchi right lung). No: Crackles, Rales, Stridor, Wheezing Cardiovascular: Regular Rate, Regular Rhythm, Normal S1, Normal S2 GI/Abdominal Exam: Normal Bowel Sounds, Soft, Non-Tender, No Distention (Male) Exam: Deferred Rectal (Males) Exam: Deferred Back Exam: Other (Back brace in place, did not remove during exam. No abnormalities noted around brace itself, did not palpate in area of surgery. ) Extremities: Normal Inspection, Normal Range of Motion, Non-Tender, No Pedal Edema, Normal Capillary Refill Peripheral Pulses: 2+: Radial (L), Radial (R) Skin: Warm, Dry, Intact, Incision (Elected to keep brace on, unable to inspect at this time. Daughter (nurse) who did last dressing change said it is healing well, no signs of infection) Neurological: Cranial Nerves Intact, Reflexes Equal Bilateral, Strength Equal Bilateral, Normal Speech, Normal Tone Neuro Extensive - Mental Status: Alert, Oriented x3, Normal Mood/Affect, Normal Cognition, Memory Intact *Q Meaningful Use (ADM) - VTE *Q VTE Criteria *Q: - Stroke *Q Stroke Criteria *Q: - AMI *Q AMI Criteria *Q: - Problem List (1) Fusion of lumbar spine SNOMED Code(s): 270736771 ICD Code: M43.26 - FUSION OF SPINE, LUMBAR REGION Status: Acute Priority : High Current Visit: Yes Onset Date: ~12/23/16 Problem Details: Recent lumbar spine fusion performed at [facility] (2) Anemia following surgery SNOMED Code(s): 818956597 ICD Code: D64.9 - ANEMIA, UNSPECIFIED Status: Acute Priority: Medium Current Visit: Yes Problem Details: Acute blood loss associated with surgery. Has had some chronic issues in past due to B12 and iron deficiency, ETOH, and bariatric surgery. Received several transfusions at [facility] prior to discharge. (3) Gilbert syndrome SNOMED Code(s): 10710070 ICD Code: E80.4 - GILBERT SYNDROME Status: Chronic Priority: Low Current Visit: No (4) BPH (benign prostatic hyperplasia) SNOMED Code(s): 986772604 ICD Code: N40.0 - BENIGN PROSTATIC HYPERPLASIA WITHOUT LOWER URINRY TRACT SYMP Status: Chronic Priority: Low Current Visit: Yes Problem Details: Patient having difficulty urinating on own since surgery. Currently has Barajas. Qualifiers: Lower urinary tract symptom presence: symptoms present Lower urinary tract symptom detail: unspecified Qualified Code(s): N40.1 - Benign prostatic hyperplasia with lower urinary tract symptoms (5) Chronic back pain SNOMED Code(s): 293392870 ICD Code: M54.9 - DORSALGIA, UNSPECIFIED; G89.29 - OTHER CHRONIC PAIN Status: Chronic Priority: Medium Current Visit: Yes Qualifiers: Back pain location: low back pain Back pain laterality: unspecified Sciatica presence: unspecified whether sciatica present Qualified Code(s): M54.5 - Low back pain; G89.29 - Other chronic pain; G89.29 - Other chronic pain (6) Addiction SNOMED Code(s): 44688048 ICD Code: [id number] - Status: Chronic Priority: Low Current Visit: No Problem Details: Sober for two months (7) Restless leg SNOMED Code(s): 17039302 ICD Code: G25.81 - RESTLESS LEGS SYNDROME Status: Chronic Priority: Low Current Visit: No (8) Peripheral neuropathy SNOMED Code(s): 628564535 ICD Code: G62.9 - POLYNEUROPATHY, UNSPECIFIED Status: Chronic Priority: Low Current Visit: No Qualifiers: Peripheral neuropathy type: polyneuropathy, unspecified Qualified Code(s): G62.9 - Polyneuropathy, unspecified (9) COPD (chronic obstructive pulmonary disease) SNOMED Code(s): 05130300 ICD Code: J44.9 - CHRONIC OBSTRUCTIVE PULMONARY DISEASE, UNSPECIFIED Status : Chronic Priority: Medium Current Visit: No Problem Details: No Recent fever, bronchitic-type symptoms, etc. Qualifiers: COPD type: emphysema Emphysema type: panlobular Qualified Code(s): J43.1 - Panlobular emphysema (10) Coronary artery disease SNOMED Code(s): 50195471 ICD Code: I25.10 - ATHSCL HEART DISEASE OF [place] CORONARY ARTERY W/O ANG PCTRS Status: Chronic Priority: Low Current Visit: No Problem Details: currently stable Qualifiers: Coronary Disease-Associated Artery/Lesion type: [place] artery [place] vs. transplanted heart: [place] heart Associated angina: with unstable angina Qualified Code(s): I25.110 - Atherosclerotic heart disease of [place] coronary artery with unstable angina pectoris (11) Diabetes mellitus SNOMED Code(s): 79039768 ICD Code: E11.9 - TYPE 2 DIABETES MELLITUS WITHOUT COMPLICATIONS Status: Chronic Priority: Medium Current Visit: No Problem Details: On Metformin. Does not usually do Accu-checks. On Victoza for weight loss, not for DM control. Qualifiers: Diabetes mellitus type: type 2 Diabetes mellitus complication status: with neurologic complications Diabetes mellitus complication detail: with polyneuropathy Diabetes mellitus longterm insulin use: without longterm use Qualified Code(s): E11.42 - Type 2 diabetes mellitus with diabetic polyneuropathy (12) Hyperlipidemia SNOMED Code(s): 78997675 ICD Code: E78.5 - HYPERLIPIDEMIA, UNSPECIFIED Status: Chronic Priority: Low Current Visit: No Qualifiers: Hyperlipidemia type: unspecified Qualified Code(s): E78.5 - Hyperlipidemia , unspecified (13) Hypertension SNOMED Code(s): 51757188 ICD Code: I10 - ESSENTIAL (PRIMARY) HYPERTENSION Status: Chronic Priority : Low Current Visit: No Qualifiers: Hypertension type: essential hypertension Qualified Code(s): I10 - Essential (primary) hypertension (14) Mixed anxiety and depressive disorder SNOMED Code(s): 604644709 ICD Code: F41.8 - OTHER SPECIFIED ANXIETY DISORDERS Status: Chronic Priority: Medium Current Visit: No (15) Osteoarthritis SNOMED Code(s): 100051072 ICD Code: M19.90 - UNSPECIFIED OSTEOARTHRITIS, UNSPECIFIED SITE Status: Chronic Priority: Medium Current Visit: No Problem Details: Otherwise stable by history Qualifiers: Osteoarthritis location: multiple joints Osteoarthritis type: primary Qualified Code(s): M15.0 - Primary generalized (osteo)arthritis (16) Peptic reflux disease SNOMED Code(s): 59465912 ICD Code: K21.9 - GASTRO-ESOPHAGEAL REFLUX DISEASE WITHOUT ESOPHAGITIS Status: Chronic Priority: Medium Current Visit: No Problem Details: Stable by history with no abdominal pain (17) Sleep apnea SNOMED Code(s): 00131218 ICD Code: G47.30 - SLEEP APNEA, UNSPECIFIED Status: Chronic Priority: Medium Current Visit: No Problem Details: He has been compliant with his CPAP Qualifiers: Sleep apnea type: unspecified type Qualified Code(s): G47.30 - Sleep apnea , unspecified Problem List Initiated/Reviewed/Updated: Yes Orders Last 24hrs: Active Orders 24 hr Category Date Time Status Patient Status [ADT] Routine ADT 01/02/17 15:48 Ordered Communication Order [RC] PER UNIT ROUTINE Care 01/02/17 15:46 Ordered Height and Weight [RC] UPON Care 01/02/17 15:47 Ordered May Shower [RC] ASDIRECTED Care 01/02/17 15:47 Ordered Oxygen Therapy [RC] PRN Care 01/02/17 15:50 Ordered Pulse Oximetry [RC] PRN Care 01/02/17 15:50 Ordered Up With Assistance [RC] ASDIRECTED Care 01/02/17 15:47 Ordered Vital Signs [RC] QSHIFT Care 01/02/17 15:48 Ordered Consult to Care Management [Consult to Case Management] Cons 01/02/17 15:52 Ordered [CONS] Routine Consult to Occupational Therapy [OT Evaluation and Cons 01/02/17 15:51 Ordered Treatment] [CONS] Routine PT Evaluation and Treatment [CONS] Routine Cons 01/02/17 15:51 Ordered ADA Diabetic [[place] [employer] Diet] [DIET Diet 01/02/17 Dinner Ordered ] Acetaminophen [Tylenol] Med 01/02/17 15:52 Ordered 650 mg PO Q4HR PRN Acetaminophen/oxyCODONE [Percocet 325-5 MG] Med 01/02/17 15:52 Ordered 1 tab PO Q4HR PRN Cyanocobalamin (Vitamin B-12) [B-12] Med 01/03/17 08:00 Ordered 1,000 mcg PO DAILY DULoxetine [Cymbalta] Med 01/03/17 08:00 Ordered 30 mg PO DAILY Docusate Sodium/Sennosides [Senna Plus] Med 01/02/17 15:52 Ordered 1 tab PO BID PRN Ferrous Sulfate Med 01/02/17 17:30 Ordered 325 mg PO BIDMEALS Folic Acid Med 01/03/17 08:00 Ordered 1 mg PO DAILY Gabapentin Med 01/02/17 18:00 Ordered 300 mg PO BID Liraglutide [Victoza] Med 01/03/17 12:00 Ordered 1.8 mg SUBCUT DAILY@1200 Metoprolol Tartrate [Lopressor] Med 01/02/17 18:00 Ordered 12.5 mg PO BID Multivitamins [Tab-A-Carrie] Med 01/03/17 08:00 Ordered 1 tab PO DAILY Naltrexone [Naltrexone] Med 01/02/17 20:00 Ordered 50 mg PO BEDTIME Non-Formulary Medication [NF Drug] Med 01/02/17 18:00 Ordered 1 tab PO BID Simvastatin [Zocor] Med 01/02/17 20:00 Ordered 40 mg PO BEDTIME Tamsulosin [Flomax] Med 01/02/17 20:00 Ordered 0.4 mg PO BEDTIME Vitamin B Complex [Super B-50 Complex] Med 01/03/17 08:00 Ordered 1 tab PO DAILY buPROPion [Wellbutrin XL] Med 01/03/17 08:00 Ordered 150 mg PO DAILY hydrOXYzine HCl [Atarax] Med 01/02/17 15:52 Ordered 50 mg PO TID PRN metFORMIN HCl [Metformin HCl ER] Med 01/02/17 18:00 Ordered 1,000 mg PO BID tiZANidine HCl [Zanaflex] Med 01/02/17 15:52 Ordered 2 mg PO TID PRN Resuscitation Status Routine Resus Stat 01/02/17 15:47 Ordered Medication Orders Acetaminophen (Tylenol) 650 mg PO Q4HR PRN PRN Reason: Pain (mild 1-3) Bupropion HCl (Wellbutrin Xl) 150 mg PO DAILY [facility] Duloxetine HCl (Cymbalta) 30 mg PO DAILY [facility] Ferrous Sulfate (Ferrous Sulfate) 325 mg PO BIDMEALS [facility] Folic Acid (Folic Acid) 1 mg PO DAILY [facility] Non-Formulary Medication (Cyanocobalamin (Vitamin B-12) [B-12]) 1,000 mcg PO DAILY [facility] Oxycodone/Acetaminophen (Percocet 325-5 Mg) 1 tab PO Q4HR PRN PRN Reason: Pain (moderate 4-6) Senna/Docusate Sodium (Senna Plus) 1 tab PO BID PRN PRN Reason: Constipation Assessment/Plan Comment:: Patient s/p lumbar fusion. Unable to perform ADLs and take care of self as of yet at home. Admit to swing bed for assistance with ADls as well as OT and PT therapy.
[2017-01-02] MEDS ORDERED: Ferrous Sulfate 325 MG Tab PO SCH (17:30)
[2017-01-02] MEDS: metFORMIN 500 MG Tab.ER PO SCH (18:12)
[2017-01-02] MEDS: Metoprolol Tartrate 25 MG Tab PO SCH (18:13)
[2017-01-02] MEDS: IRON 27 MG PO SCH (18:13)
[2017-01-02] MEDS: Acetaminophen/oxyCODONE 325-5 MG Tab PO PRN ×2 (18:13→22:04)
[2017-01-02] MEDS: Gabapentin 300 MG Cap PO SCH (18:13)
[2017-01-02] MEDS ORDERED: NALTREXONE 50 MG PO SCH (20:00)
[2017-01-02] MEDS: Tamsulosin 0.4 MG Cap.ER PO SCH (20:34)
[2017-01-02] MEDS: Simvastatin 20 MG Tab PO SCH (20:34)
[2017-01-02] MEDS: tiZANidine 4 MG Tab PO PRN (22:03)
[2017-01-03] MEDS: Acetaminophen/oxyCODONE 325-5 MG Tab PO PRN ×5 (02:32→21:29)
[2017-01-03] MEDS: IRON 27 MG PO SCH ×2 (07:37→17:31)
[2017-01-03] MEDS: Cyanocobalamin (Vitamin B12) 1,000 MCG Tab PO SCH (07:38)
[2017-01-03] MEDS: DULoxetine 30 MG Cap PO SCH (07:38)
[2017-01-03] MEDS: Multivitamin Tab PO SCH (07:38)
[2017-01-03] MEDS: buPROPion 150 MG Tab.ER PO SCH (07:38)
[2017-01-03] MEDS: Folic Acid 1 MG Tab PO SCH (07:38)
[2017-01-03] MEDS: metFORMIN 500 MG Tab.ER PO SCH ×2 (07:38→17:25)
[2017-01-03] MEDS: Metoprolol Tartrate 25 MG Tab PO SCH ×2 (07:38→17:25)
[2017-01-03] MEDS: Gabapentin 300 MG Cap PO SCH ×2 (07:38→17:25)
[2017-01-03] MEDS: tiZANidine 4 MG Tab PO PRN ×3 (07:49→22:56)
[2017-01-03] MEDS ORDERED: Non-Formulary Medication 1 Each (Liraglutide [Victoza] 1.8 MG) SUBCUT SCH (12:00)
[2017-01-03 12:17] LABS: CHLORIDE,CL 104 mmol/L (98-107); SODIUM,NA 139 mmol/L (136-145)
[2017-01-03] MEDS: Simvastatin 20 MG Tab PO SCH (19:22)
[2017-01-03] MEDS: Tamsulosin 0.4 MG Cap.ER PO SCH (19:22)
[2017-01-03] MEDS: Acetaminophen 325 MG Tab PO PRN (19:22)
[2017-01-03] MEDS: hydrOXYzine Pamoate 25 MG Cap PO PRN (19:42)
[2017-01-03] MEDS ORDERED: traMADol 50 MG Tab PO ONE (22:25)
[2017-01-04] MEDS: Acetaminophen/oxyCODONE 325-5 MG Tab PO PRN ×3 (01:35→12:12)
[2017-01-04] MEDS: hydrOXYzine Pamoate 25 MG Cap PO PRN ×2 (03:54→10:00)
[2017-01-04] MEDS: Acetaminophen 325 MG Tab PO PRN ×2 (03:54→09:59)
[2017-01-04] MEDS: metFORMIN 500 MG Tab.ER PO SCH (07:26)
[2017-01-04] MEDS: Gabapentin 300 MG Cap PO SCH (07:26)
[2017-01-04] MEDS: Multivitamin Tab PO SCH (07:26)
[2017-01-04] MEDS: Metoprolol Tartrate 25 MG Tab PO SCH (07:27)
[2017-01-04] MEDS: DULoxetine 30 MG Cap PO SCH (07:27)
[2017-01-04] MEDS: Cyanocobalamin (Vitamin B12) 1,000 MCG Tab PO SCH (07:27)
[2017-01-04] MEDS: buPROPion 150 MG Tab.ER PO SCH (07:27)
[2017-01-04] MEDS: Folic Acid 1 MG Tab PO SCH (07:27)
[2017-01-04] MEDS: IRON 27 MG PO SCH (07:28)
[2017-01-04 07:30] VITALS: BP 142/80
--- NOTE | 2017-01-04 15:05 | PCM.DCSUM1 ---
Discharge Summary - Hospital Course HPI Initial Comments: See admission H&P Brief History: See admission H&P - Discharge Data Discharge Date: 01/04/17 Discharge Disposition: Home, W Home Health Agency 06 Condition: Good - Discharge Diagnosis/Problem(s) (1) Osteoarthritis SNOMED Code(s): 310911940 ICD Code: M19.90 - UNSPECIFIED OSTEOARTHRITIS, UNSPECIFIED SITE Status: Chronic Priority: High Problem Details: Note recent spinal fusion in the lumbar region with the patient limited to swing bed for pain control. By my recommendations he insists on going back to home today and is requesting home health. His pain is under relatively good control with oral medications, which he has at home. He is scheduled for removal of diana by his regular provider on 01/06. Continue close follow-up by his regular providers. His arthritis is otherwise stable. Qualifiers: Osteoarthritis location: multiple joints Osteoarthritis type: primary Qualified Code(s): M15.0 - Primary generalized (osteo)arthritis (2) COPD (chronic obstructive pulmonary disease) SNOMED Code(s): 42084118 ICD Code: J44.9 - CHRONIC OBSTRUCTIVE PULMONARY DISEASE, UNSPECIFIED Status : Chronic Priority: Medium Problem Details: No Recent fever, bronchitic- type symptoms, etc. Qualifiers: COPD type: emphysema Emphysema type: panlobular Qualified Code(s): J43.1 - Panlobular emphysema (3) Coronary artery disease SNOMED Code(s): 76684673 ICD Code: I25.10 - ATHSCL HEART DISEASE OF [place] CORONARY ARTERY W/O ANG PCTRS Status: Chronic Priority: Medium Problem Details: No recent history of chest pain or anginal type symptoms and currently stable by history and during his swing bed care Qualifiers: Coronary Disease-Associated Artery/Lesion type: [place] artery [place] vs. transplanted heart: [place] heart Associated angina: with unstable angina Qualified Code(s): I25.110 - Atherosclerotic heart disease of [place] coronary artery with unstable angina pectoris (4) Diabetes mellitus SNOMED Code(s): 53211070 ICD Code: E11.9 - TYPE 2 DIABETES MELLITUS WITHOUT COMPLICATIONS Status: Chronic Priority: Medium Problem Details: Continue to observe closely by his regular providers; stable by history with current metformin therapy, although the patient does not take home Accu-Cheks. Qualifiers: Diabetes mellitus type: type 2 Diabetes mellitus complication status: with neurologic complications Diabetes mellitus complication detail: with polyneuropathy Diabetes mellitus local intermodal truck driver insulin use: without local intermodal truck driver use Qualified Code(s): E11.42 - Type 2 diabetes mellitus with diabetic polyneuropathy (5) Hyperlipidemia SNOMED Code(s): 69551788 ICD Code: E78.5 - HYPERLIPIDEMIA, UNSPECIFIED Status: Chronic Priority: Medium Problem Details: Stable by history and currently under therapy Qualifiers: Hyperlipidemia type: unspecified Qualified Code(s): E78.5 - Hyperlipidemia , unspecified (6) Hypertension SNOMED Code(s): 77341811 ICD Code: I10 - ESSENTIAL (PRIMARY) HYPERTENSION Status: Chronic Priority : Medium Problem Details: Blood pressures under good control during his swing bed care Qualifiers: Hypertension type: essential hypertension Qualified Code(s): I10 - Essential (primary) hypertension (7) Iron deficiency anemia SNOMED Code(s): 59445083 ICD Code: D50.9 - IRON DEFICIENCY ANEMIA, UNSPECIFIED Status: Chronic Priority: Medium Onset Date: ~04/05/16 Problem Details: Note history of iron and vitamin B 12 deficiency. Continue to observe closely by his regular provider with mild anemia on admission Qualifiers: Iron deficiency anemia type: other iron deficiency Qualified Code(s): D50.8 - Other iron deficiency anemias (8) Mixed anxiety and depressive disorder SNOMED Code(s): 661100459 ICD Code: F41.8 - OTHER SPECIFIED ANXIETY DISORDERS Status: Chronic Priority: Medium Problem Details: Stable by history and during this swing bed care. Note history of alcohol abuse. Continue to observe closely by his regular providers (9) Peptic reflux disease SNOMED Code(s): 46319537 ICD Code: K21.9 - GASTRO-ESOPHAGEAL REFLUX DISEASE WITHOUT ESOPHAGITIS Status: Chronic Priority: Medium Problem Details: Stable by history with no abdominal pain other GI complaints at this time. Patient did have a bowel movement earlier today despite history of constipation (10) Peripheral neuropathy SNOMED Code(s): 721797522 ICD Code: G62.9 - POLYNEUROPATHY, UNSPECIFIED Status: Chronic Priority: Medium Problem Details: Currently under therapy and stable by history Qualifiers: Peripheral neuropathy type: polyneuropathy, unspecified Qualified Code(s): G62.9 - Polyneuropathy, unspecified (11) Sleep apnea SNOMED Code(s): 45249242 ICD Code: G47.30 - SLEEP APNEA, UNSPECIFIED Status: Chronic Priority: Medium Problem Details: He has been compliant with his CPAP both during his swing bed care and at home Qualifiers: Sleep apnea type: unspecified type Qualified Code(s): G47.30 - Sleep apnea , unspecified (12) Hypoalbuminemia SNOMED Code(s): 066682031 ICD Code: E88.09 - OTH DISORDERS OF PLASMA-PROTEIN METABOLISM, NEC Status: Acute Priority: Medium Onset Date: 01/03/17 Problem Details: High-protein Glucerna supplements as snacks recommended - Patient Summary/Data Operative Procedure(s) Performed: None Complications: None Consults: Consultations 01/02/17 15:51 Consult to Occupational Therapy [OT Evaluation and Treatment] [CONS] Routine PT Evaluation and Treatment [CONS] Routine 01/02/17 15:52 Consult to Care Management [Consult to Case Management] [CONS] Routine Labs Pending at D/C: None Recommended Follow-up Testing/Procedures: None Planned Operative Procedure(s) after DC: None Hospital Course: 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 He is requesting to go home, despite our recommendations. - Patient Instructions Diet: Heart Healthy Diet (1800-calorie ADA, diverticulosis) Activity: Apply Ice, As Tolerated, No Lifting Over 10 Pounds Driving: Do Not Drive Showering/Bathing: May Shower Wound/Incision Care: Keep Operative Site/Wound Site Clean and Dry Notify Provider of: Fever, Increased Pain, Swelling and Redness, Drainage Other/Special Instructions: 1. Follow-up with your regular provider on 01/06 for staple removal otherwise with your orthopedic surgeon as already scheduled in February 2017. 2. Tylenol 650 mg by mouth every 4 hours and/or OTC ibuprofen 2-3 tabs by mouth every 6 hours with food as directed./needed. 3. BenGay or equivalent, heating pad, and/or ice packs as directed. 4. Continue to use your C Pap as before. 5. Wound care as previously directed. 6. Home Health will be set up for you at discharge. 7. Strict compliance with back brace as previously directed with activity restrictions as previously recommended. 8. Use extreme discretion when using narcotic pain medications, including sedation, constipation, dependency precautions with this medication only to be used for severe pain. - Discharge Plan Home Medications: Home Meds DULoxetine [Cymbalta] 30 mg PO DAILY 08/28/14 [History] Ferrous Sulfate 325 mg PO BIDMEALS 08/28/14 [History] Folic Acid 1 mg PO DAILY 08/28/14 [History] Gabapentin 300 mg PO BID 08/28/14 [History] Naltrexone 50 mg PO BEDTIME #30 tablet 11/17/14 [Rx] Liraglutide [Victoza] 1.8 mg SUBCUT DAILY@1200 05/30/15 [History] metFORMIN HCl [Metformin HCl ER] 1,000 mg PO BID 05/30/15 [History] Multivitamins [Tab-A-Carrie] 1 tab PO DAILY 02/01/16 [History] Tamsulosin [Flomax] 0.4 mg PO BEDTIME 02/01/16 [History] buPROPion [Wellbutrin XL] 150 mg PO DAILY 03/08/16 [History] Metoprolol Tartrate [Lopressor] 12.5 mg PO BID 11/03/16 [History] Acetaminophen 650 mg PO Q4HR PRN 01/02/17 [History] Cyanocobalamin (Vitamin B-12) [B-12] 1,000 mcg PO DAILY 01/02/17 [History] Docusate Sodium/Sennosides [Senna Plus] 1 tab PO BID PRN 01/02/17 [History] Non-Formulary Medication [NF Drug] 1 tab PO BID 01/02/17 [History] Simvastatin [Zocor] 40 mg PO BEDTIME 01/02/17 [History] Vitamin B Complex [Super B-50 Complex] 1 tab PO DAILY 01/02/17 [History] hydrOXYzine Pamoate [Hydroxyzine Pamoate] 50 mg PO TID PRN 01/02/17 [History] oxyCODONE HCl/Acetaminophen [Endocet 5-325 Tablet] 1 tab PO Q4HR PRN 01/02/17 [ History] tiZANidine HCl [Zanaflex] 2 mg PO TID PRN 01/02/17 [History] hydrOXYzine Pamoate [Vistaril] 50 mg PO TID PRN cap 01/04/17 [Rx] - Discharge Summary/Plan Comment DC Time >30 min.: Yes (Coordination of care) Discharge Summary/Plan Comment: As above. Extensive precautions were given to the patient and his , who are in agreement with the treatment plan. - General Info Date of Service: 01/04/17 Admission Dx/Problem (Free Text: Admission Diagnosis/Problem Admission Diagnosis/Problem Fusion of lumbar spine Functional Status: Reports: Pain Controlled, Tolerating Diet, Ambulating, Urinating. Denies: New Symptoms, Incentive Spirometry Numeric/FACES Score: 4 - Review of Systems General: Reports: No Symptoms. Denies: Fever, Weakness, Fatigue, Malaise, Chills, Night Sweats, Appetite (Appetite good) HEENT: Reports: No Symptoms. Denies: Dysphasia, Ear Pain, Eye Pain, Sinus Congestion, Sore Throat, Rhinitis, Visual Changes Pulmonary: Reports: No Symptoms. Denies: Shortness of Breath, Pleuritic Chest Pain, Cough, Sputum, Wheezing Cardiovascular: Reports: No Symptoms. Denies: Chest Pain, Palpitations, Dyspnea on Exertion, Orthopnea, PND, Edema, Lightheadedness Gastrointestinal: Reports: No Symptoms. Denies: Abdominal Pain, Constipation, Decreased Appetite, Diarrhea, Difficulty Swallowing, Hematochezia, Melena, Nausea, Vomiting Genitourinary: Reports: No Symptoms. Denies: Dysuria, Frequency, Burning, Urgency, Hematuria, Retention, Flank Pain Musculoskeletal: Reports: Back Pain (Stable postoperative low back). Denies: Neck Pain, Shoulder Pain, Arm Pain, Hand Pain, Leg Pain Skin: Reports: Other (Lumbar surgical site). Denies: Pallor, Diaphoresis, Bruising, Pruritis Neurological: Reports: Numbness (Stable by history), Paresthesia (As above), Tingling (As above). Denies: Confusion, Dizziness, Headache, Weakness Psychiatric: Reports: No Symptoms. Denies: Confusion, Depression, Anxiety, Agitation, Cravings, Hallucinations - Patient Data Vitals - Most Recent: Last Vital Signs Temp 36.8 C 01/04/17 07:30 Pulse 57 L 01/04/17 07:30 Resp 17 01/04/17 07:30 BP 142/80 H 01/04/17 07:30 Pulse Ox 94 L 01/04/17 07:30 Vital Signs - 24 hr 01/03/17 01/03/17 01/04/17 17:25 20:00 07:27 Temperature [ 36.9 C Oral] Pulse, 54 L 57 L Peripheral Pulse, 53 L Peripheral [ Left Pulse Oximetry] Respiratory 16 Rate Blood Pressure 133/65 142/80 H Blood Pressure 150/88 H [Right Upper Arm] O2 Sat by Pulse 97 Oximetry 01/04/17 07:30 Temperature [ 36.8 C Oral] Pulse, Peripheral Pulse, 57 L Peripheral [ Left Pulse Oximetry] Respiratory 17 Rate Blood Pressure Blood Pressure 142/80 H [Right Upper Arm] O2 Sat by Pulse 94 L Oximetry Weight - Most Recent: 107.456 kg I&O - Last 24 hours: Intake & Output 01/04/17 01/04/17 01/04/17 06:59 14:59 22:59 Intake Total 300 Output Total 500 400 Balance -200 -400 Imaging Impressions - Last 24 hrs: None Lab Results - Last 24 hrs: Laboratory Tests 01/03/17 01/03/17 Range/Units 11:55 11:55 WBC 8.5 (4.0-10.2) K/uL RBC 3.40 L (4.33-5.41) M/uL Hgb 11.0 L D (13.1-16.8) g/dL Hct 33.3 L (39.0-49.0) % MCV 97.9 (84.0-98.0) fL MCH 32.4 (28.2-33.3) pg MCHC 33.0 (31.7-36.0) g/dL RDW 14.8 H (11.2-14.1) % Plt Count 320 D (150-350) K/uL Neut % (Auto) 75.7 (45.0-80.0) % Lymph % (Auto) 12.0 (10.0-50.0) % [place] % (Auto) 8.5 (2.0-14.0) % Eos % (Auto) 3.3 (0.0-5.0) % Baso % (Auto) 0.5 (0.0-2.0) % Neut # (Auto) 6.43 (1.40-7.00) K/uL Lymph # (Auto) 1.02 (0.50-3.50) K/uL [place] # (Auto) 0.72 (0.00-1.00) K/uL Eos # (Auto) 0.28 (0.00-0.50) K/uL Baso # (Auto) 0.04 (0.00-0.20) K/uL Sodium 139 (136-145) mmol/L Potassium 3.9 (3.5-5.1) mmol/L Chloride 104 (98-107) mmol/L Carbon Dioxide 26.0 (21.0-32.0) mmol/L BUN 8 (7-18) mg/dL Creatinine 0.67 (0.51-1.17) mg/dL Est Cr Clr Drug Dosing 109.55 mL/min Estimated GFR (MDRD) > 60 mL/min Glucose 158 H (74-106) mg/dL Calcium 8.6 (8.5-10.1) mg/dL Total Bilirubin 0.4 (0.2-1.0) mg/dL AST 21 (15-37) U/L ALT 19 (12-78) U/L Alkaline Phosphatase 112 (46-116) IU/L Total Protein 6.0 L (6.4-8.2) g/dL Albumin 2.5 L (3.4-5.0) g/dL HAILEE Results - Last 24 hrs: None Med Orders - Current: Current Medications Acetaminophen (Tylenol) 650 mg PO Q4HR PRN PRN Reason: Pain (mild 1-3) Last Admin: 01/04/17 09:59 Dose: 650 mg Bupropion HCl (Wellbutrin Xl) 150 mg PO DAILY [facility] Last Admin: 01/04/17 07:27 Dose: 150 mg Cyanocobalamin (Vitamin B12) 1,000 mcg PO DAILY [facility] Last Admin: 01/04/17 07:27 Dose: 1,000 mcg Duloxetine HCl (Cymbalta) 30 mg PO DAILY [facility] Last Admin: 01/04/17 07:27 Dose: 30 mg Folic Acid (Folic Acid) 1 mg PO DAILY [facility] Last Admin: 01/04/17 07:27 Dose: 1 mg Gabapentin (Neurontin) 300 mg PO BID [facility] Last Admin: 01/04/17 07:26 Dose: 300 mg Hydroxyzine Pamoate (Vistaril) 50 mg PO TID PRN PRN Reason: Anxiety Last Admin: 01/04/17 10:00 Dose: 50 mg Metformin HCl (Glucophage Xr) 1,000 mg PO BID [facility] Last Admin: 01/04/17 07:26 Dose: 1,000 mg Metoprolol Tartrate (Lopressor) 12.5 mg PO BID [facility] Last Admin: 01/04/17 07:27 Dose: 12.5 mg Multivitamins/Minerals/Vitamin C (Tab-A-Carrie) 1 tab PO DAILY [facility] Last Admin: 01/04/17 07:26 Dose: 1 tab Iron 27mg Tablet 1 each PO BID [facility] Last Admin: 01/04/17 07:28 Dose: 1 each Vitamin B Complex (Tablet) 1 tab PO DAILY [facility] Last Admin: 01/04/17 07:28 Dose: 1 tab Oxycodone/Acetaminophen (Percocet 325-5 Mg) 1 tab PO Q4HR PRN PRN Reason: Pain (moderate 4-6) Last Admin: 01/04/17 12:12 Dose: 1 tab Senna/Docusate Sodium (Senna Plus) 1 tab PO BID PRN PRN Reason: Constipation Simvastatin (Zocor) 40 mg PO BEDTIME [facility] Last Admin: 01/03/17 19:22 Dose: 40 mg Tamsulosin HCl (Flomax) 0.4 mg PO BEDTIME [facility] Last Admin: 01/03/17 19:22 Dose: 0.4 mg Tizanidine HCl (Zanaflex) 2 mg PO TID PRN PRN Reason: muscle spasms Last Admin: 01/03/17 22:56 Dose: 2 mg Discontinued Medications Tramadol HCl (Ultram) 50 mg PO ONETIME ONE Stop: 01/03/17 22:26 Last Admin: 01/03/17 22:55 Dose: 50 mg - Exam Quality Assessment: Reports: DVT Prophylaxis. Denies: Supplemental Oxygen, Urine Catheter, Skin Breakdown, Restraints General: Reports: Alert, Oriented, Cooperative, No Acute Distress HEENT: Reports: Pupils Equal, Pupils Reactive, EOMI, Mucous Membr. Moist/[place] Neck: Reports: Supple, Trachea Midline, No JVD, No Thyromegaly. Denies: Lymphadenopathy Lungs: Reports: Clear to Auscultation, Normal Respiratory Effort. Denies: Rub Cardiovascular: Reports: Regular Rate (Resolved bradycardia at time of exam), Regular Rhythm, No Murmurs. Denies: Gallops, Rubs GI/Abdominal Exam: Normal Bowel Sounds, Soft, Non-Tender, No Organomegaly, No Distention, No Abnormal Bruit, No Mass, Pelvis Stable, Other (Obese). No: Guarding (Male) Exam: Deferred Rectal (Males) Exam: Deferred Back Exam: Reports: Other (Surgical site shows no sign of infection with diana in place). Denies: CVA Tenderness (L), CVA Tenderness (R), Muscle Spasm , Paraspinal Tenderness, Vertebral Tenderness Extremities: Normal Inspection, Normal Range of Motion, Non-Tender, No Pedal Edema, Normal Capillary Refill. No: Disha's Sign Skin: Reports: Other (As above). Denies: Ecchymosis Wound/Incisions: Reports: Healing Well, No Drainage. Denies: Erythema Neurological: Reports: No New Focal Deficit Psy/Mental Status: Reports: Alert, Normal Affect, Normal Mood *Q Meaningful Use (DIS) - VTE *Q VTE Criteria *Q: - Stroke *Q Stroke Criteria *Q: - AMI *Q AMI Criteria *Q:
--- NOTE | 2017-01-06 02:33 | PCM.SN ---
- Free Text/Narrative Note: Clarification of home health order at discharge of the patient from this facility on 01/04/17. Home health services are to include the followin. Health nursing is to assess and teach wound cares, medications and pain management 2. PT and OT are to evaluate and treat the patient for home safety and self- care after recent spinal fusion 3. The patient is homebound due to status post spinal fusion with secondary postsurgical decreased mobility and pain 4. Home Health plan of care is to be followed by Dr. Flores
== END 2017-01-04 15:50 | disposition home health service (06) | DRG 561 ==
LOC: LL.MS 14:52
PROVIDERS: ADMIT Emergency Medicine; ATTEND Family Medicine
DX: Z47.89 Encounter for other orthopedic aftercare (principal); M43.26 Fusion of spine, lumbar region; D64.9 Anemia, unspecified; E80.4 Gilbert syndrome; N40.0 Benign prostatic hyperplasia without lower urinary tract symptoms; G89.29 Other chronic pain; G25.81 Restless legs syndrome; G62.9 Polyneuropathy, unspecified; J44.9 Chronic obstructive pulmonary disease, unspecified; E11.42 Type 2 diabetes mellitus with diabetic polyneuropathy; F41.8 Other specified anxiety disorders; I25.10 Atherosclerotic heart disease of native coronary artery without angina pectoris; I10 Essential (primary) hypertension; M19.90 Unspecified osteoarthritis, unspecified site; K21.9 Gastro-esophageal reflux disease without esophagitis; G47.30 Sleep apnea, unspecified; E78.5 Hyperlipidemia, unspecified; D50.8 Other iron deficiency anemias; E88.09 Other disorders of plasma-protein metabolism, not elsewhere classified; Z88.8 Allergy status to other drugs, medicaments and biological substances; Z79.84 Long term (current) use of oral hypoglycemic drugs; Z79.899 Other long term (current) drug therapy; H91.90 Unspecified hearing loss, unspecified ear; H54.7 Unspecified visual loss; I48.91 Unspecified atrial fibrillation; K44.9 Diaphragmatic hernia without obstruction or gangrene; Z87.891 Personal history of nicotine dependence
CPT/HCPCS: 36415; 80053; 85025; 97110-GP; 97161-GP; 97165-GO; 97530-GP; 97535-GO; A9270-GY; Q0177

== ENCOUNTER 2017-02-13 05:40 | Emergency (ER) | payer MEDICARE, BC, OTHER, SELFPAY ==
[2017-02-13] MEDS ORDERED: Sodium Chloride 0.9% 10 ML Syringe FLUSH PRN (05:51)
--- NOTE | 2017-02-13 06:15 | EDM.PDOC ---
ED HPI GENERAL MEDICAL PROBLEM - General Chief Complaint: Chest Pain Stated Complaint: Back Pain and Chest pain Time Seen by Provider: 02/13/17 05:41 Source of Information: Reports: Patient History Limitations: Reports: No Limitations - History of Present Illness INITIAL COMMENTS - FREE TEXT/NARRATIVE: Patient brought by EMS for complaint of severe lower back pain. Had multiple level lumbar fusion performed at [place] [facility] mid December. Discharged home on Percocet. Was doing well. Ran out of Percocet just before Nancy. Was pain-free an entire week approximately. Pain started to return. Patient describes it as low back pain like he had before surgery, more so on right side , with radiation of pain down both legs. No loss of bowel/bladder control. No numbness/tingling. Pain has gradually worsened. It got bad enough yesterday that patient broke one year history of sobriety and between yesterday morning and yesterday 1600 he drank one bottle of vodka and one bottle wine in attempt to self medicate the pain away. Has not had any ETOH since then per self report. Pain continued, patient unable to perform ADLs and EMS called. Patient denies any other changes other than some chest discomfort and points to epigastric area as site of pain. Describes it as burning/pressure. Chest Pain Score (Numeric/FACES): 6 - Related Data Allergies Allergy/AdvReac Type Severity Reaction Status Date / Time aspirin Allergy Other Verified 02/13/17 06:42 Home Meds: Home Meds RX: DULoxetine [Cymbalta] 30 mg PO DAILY 08/28/14 [History] RX: Ferrous Sulfate 325 mg PO BIDMEALS 08/28/14 [History] RX: Folic Acid 1 mg PO DAILY 08/28/14 [History] RX: Gabapentin 300 mg PO BID 08/28/14 [History] RX: Naltrexone 50 mg PO BEDTIME #30 tablet 11/17/14 [Rx] RX: Liraglutide [Victoza] 1.8 mg SUBCUT DAILY@1200 05/30/15 [History] RX: metFORMIN HCl [Metformin HCl ER] 1,000 mg PO BID 05/30/15 [History] RX: Multivitamins [Tab-A-Carrie] 1 tab PO DAILY 02/01/16 [History] RX: Tamsulosin [Flomax] 0.4 mg PO BEDTIME 02/01/16 [History] RX: buPROPion [Wellbutrin XL] 150 mg PO DAILY 03/08/16 [History] RX: Metoprolol Tartrate [Lopressor] 12.5 mg PO BID 11/03/16 [History] RX: Acetaminophen 650 mg PO Q4HR PRN 01/02/17 [History] RX: Cyanocobalamin (Vitamin B-12) [B-12] 1,000 mcg PO DAILY 01/02/17 [History] RX: Docusate Sodium/Sennosides [Senna Plus] 1 tab PO BID PRN 01/02/17 [History] RX: Non-Formulary Medication [NF Drug] 1 tab PO BID 01/02/17 [History] RX: Simvastatin [Zocor] 40 mg PO BEDTIME 01/02/17 [History] RX: Vitamin B Complex [Super B-50 Complex] 1 tab PO DAILY 01/02/17 [History] RX: tiZANidine HCl [Zanaflex] 2 mg PO TID PRN 01/02/17 [History] RX: hydrOXYzine Pamoate [Vistaril] 50 mg PO TID PRN cap 01/04/17 [Rx] Past Medical History HEENT History: Reports: Hard of Hearing, Impaired Vision Other HEENT History: Reading glasses despite previous LASIK surgery, mild borderline presbycusis with no therapy Cardiovascular History: Reports: Afib, Arrhythmia, CAD, Heart Murmur, High Cholesterol, Hypertension, Other (See Below) Other Cardiovascular History: Atrial fibrillation versus PSVT with status post ablation as below, incomplete right bundle branch block, dyslipidemia, hypertensive cardiomegaly, mild diffuse valvular disease, PACs, Respiratory History: Reports: COPD, Sleep Apnea, Other (See Below) Other Respiratory History: Restless leg syndrome Gastrointestinal History: Reports: Cholelithiasis, Colon Polyp, Diverticulosis, Gastritis, GERD, Hemorrhoids, Hiatal Hernia, PUD, Other (See Below) Other Gastrointestinal History: recurrent rectal fissures/fistulas, Gilbert's syndrome, mild colitis, gastritis, esophagitis, and duodenitis; hyperplastic colonic polyp at 30 cm on 03/12/2001, fatty liver Genitourinary History: Reports: BPH Musculoskeletal History: Reports: Arthritis, Back Pain, Chronic, Fracture, Gout , Neck Pain, Chronic, Osteoarthritis, Other (See Below) Other Musculoskeletal History: Left wrist fracture on 08/29/09 with fixation as below, right thumb fracture in about 1999 with surgery as below, vertebral body compression fractures of T5, T7, and T8-T10 with mild scoliosis by CT scan Neurological History: Reports: Neuropathy, Diabetic, Neuropathy, Peripheral, Other (See Below) Other Neuro History: No history of DTs or seizures from alcohol use, mild cerebrovascular disease by CT scan of the head as below Psychiatric History: Reports: Addiction, Anxiety, Depression, Psych Hospitalization(s), Other (See Below) Other Psychiatric History: Alcohol abuse with previous history of alcohol treatment including inpatient detoxification in January 2016 through February 2015 for 2 weeks, previous tobacco and and chronic narcotic use, chronic insomnia Endocrine/Metabolic History: Reports: Diabetes, Type II, Other (See Below) Other Endocrine/Metabolic History: Diabetes mellitus-diet controlled with previous history of occasional hypoglycemia and current medication program for weight loss Hematologic History: Reports: Anemia, B12 Deficiency, Folic Acid, Iron Deficiency, Polycythemia Immunologic History: Reports: None Oncologic (Cancer) History: Reports: None Dermatologic History: Reports: None - Infectious Disease History Infectious Disease History: Reports: Chicken Pox, Measles, Mumps - Past Surgical History Head Surgeries/Procedures: Reports: None HEENT Surgical History: Reports: Eye Surgery, LASIK, Oral Surgery, Other (See Below) Cardiovascular Surgical History: Reports: Cardiac Ablation, Other (See Below) GI Surgical History: Reports: Bariatric Procedure, Cholecystectomy, Colonoscopy , EGD, Polypectomy, Other (See Below) Male Surgical History: Reports: Circumcision, Vasectomy, Other (See Below) Musculoskeletal Surgical History: Reports: Carpal Tunnel, Hip Replacement, Knee Replacement, ORIF - Past Imaging History Past Imaging History: Reports: Cardiac Echo, CAT Scan, MRI, Sleep Study, Stress Testing, Ultrasound, Other (See Below) Social & Family History - Family History HEENT: Reports: Macular Degeneration, Other (See Below) Other HEENT Family History: Mother with macular degeneration Cardiac: Reports: Blood Clots/VTE/DVT, Bypass, CAD, Heart Failure, Heart Murmur , Heart Valve Replacement, High Cholesterol, Hypertension, RI, Other (See Below) Other Cardiac Family History: Mother with three-vessel CABG at age 73 with CHF, valvular surgery, and possible previous RI, hypertension in mother and 2 brothers, brother with hyperlipidemia, mother with history of DVT in the legs in her 60s Respiratory: Reports: None GI: Reports: Cholelithiasis, Other (See Below) Other GI Family History: Mother with cholelithiasis : Reports: None OBGYN: Reports: None Musculoskeletal: Reports: Arthritis, Gout, Osteoarthritis, Osteoporosis, Other ( See Below) Other Musculoskeletal Family History: Maternal aunt with osteoarthritis, brother with gout Neurological: Reports: Alzheimers Disease, CVA, Dementia, Other (See Below) Other Neurological Family History: Mother with CVA in her 70s and history of Alzheimer's disease Psychiatric: Reports: Anxiety, Depression, Suicide Attempt, Other (See Below) Other Psychiatric Family History: Father and sister with history of alcohol abuse and anxiety depression which did require alcohol treatment and hospitalizations, father with history of suicide attempt, Endocrine/Metabolic: Reports: Diabetes, type II, Other (See Below) Other Endocrine/Metabolic Family History: Borderline diabetes mellitus in father Hematologic: Reports: None Immunologic: Reports: None Dermatologic: Reports: None Oncologic: Reports: Breast, Lung, Other (See Below) Other Oncologic Family History: Paternal aunt with lung cancer fatal in her 60s with limited previous tobacco use, paternal cousin with lung cancer at age 56 likely secondary to tobacco use, sister with breast cancer in her 50s - Tobacco Use Smoking Status *Q: Former Smoker Years of Tobacco use: 30 Packs/Tins Daily: 2 Used Tobacco, but Quit: Yes Month Tobacco Last Used: Started smoking at age 17 with no use since 02/11/1999 Second Hand Smoke Exposure: No - Caffeine Use Caffeine Use: Reports: Soda - Alcohol Use Days Per Week of Alcohol Use: 7 Number of Drinks Per Day: 2 Total Drinks Per Week: 14 - Recreational Drug Use Recreational Drug Use: No Drug Use in Last 12 Months: No - Living Situation & Occupation Living situation: Reports: , with Family Occupation: Retired ED ROS GENERAL - Review of Systems Review Of Systems: ROS reveals no pertinent complaints other than HPI. ED EXAM,LOWER BACK PAIN/INJURY - Physical Exam Exam: See Below Exam Limited By: No Limitations General Appearance: Alert, WD/WN, Moderate Distress, Obese Eye Exam: Bilateral Eye: EOMI, PERRL Ears: Normal External Exam, Normal Canal Nose: Normal Inspection Throat/Mouth: Normal Inspection, Normal Voice, No Airway Compromise Head: Atraumatic, Normocephalic Neck: Normal Inspection, Supple, Non-Tender, Full Range of Motion Respiratory/Chest: No Respiratory Distress, Lungs Clear, Normal Breath Sounds, No Accessory Muscle Use, Chest Non-Tender Cardiovascular: Normal Peripheral Pulses, Regular Rate, Rhythm, No Edema, No Murmur, Tachycardia GI/Abdominal: Soft, Other (discomfort with palpation epigastric area). No: Distended, Guarding, Rigid, Rebound (Male) Exam: Deferred Rectal (Males) Exam: Deferred Back Exam: Other (Could not elicit increased pain with palpation of spine or soft tissue of back, no focal area of increased pain indentified. Incision from December appears to be healing well. ) Extremities: Normal Inspection, Normal Range of Motion, Non-Tender, No Pedal Edema, Normal Capillary Refill. No: Disha's Sign Neurological: Alert, Normal Mood/Affect, Normal Reflexes, Oriented x 3, Straight Leg Raise (L) (pain at 45 degrees), Straight Leg Raise (R) (pain at 45 degrees), Other (equal strength and tone bilaterally) DTR - Lower Extremities: 1+: Knee (R), Knee (L) Psychiatric: Anxious Skin Exam: Warm, Dry, Intact, Normal Color EKG INTERPRETATION EKG Date: 02/13/17 Time: 05:43 Rhythm: NSR Rate (Beats/Min): 100 [place]: Normal P-Wave: Present QRS: Normal ST-T: Normal QT: Normal Comparison: No Change (Compared to EKG Mar 2016) Course - Vital Signs Last Recorded V/S: Last Vital Signs Temp 36.9 C 02/13/17 05:40 Pulse 109 H 02/13/17 07:15 Resp 22 H 02/13/17 07:15 BP 132/85 02/13/17 07:15 Pulse Ox 97 02/13/17 07:15 - Orders/Labs/Meds Orders: Active Orders 24 hr Category Date Time Status EKG Documentation Completion [RC] ASDIRECTED Care 02/13/17 05:52 Active Chest 1V Frontal [CR] Stat Exams 02/13/17 05:52 Taken Sodium Chloride 0.9% [Saline Flush] Med 02/13/17 05:51 Active 10 ml FLUSH ASDIRECTED PRN Saline Lock Insert [OM.PC] Stat Oth 02/13/17 05:51 Ordered Medication Orders Sodium Chloride (Saline Flush) 10 ml FLUSH ASDIRECTED PRN PRN Reason: Keep Vein Open Labs: Laboratory Tests 02/13/17 02/13/17 02/13/17 Range/Units 05:50 05:50 05:50 WBC 7.7 (4.0-10.2) K/uL RBC 4.55 (4.33-5.41) M/uL Hgb 14.4 D (13.1-16.8) g/dL Hct 41.9 (39.0-49.0) % MCV 92.1 D (84.0-98.0) fL MCH 31.6 (28.2-33.3) pg MCHC 34.4 (31.7-36.0) g/dL RDW 15.0 H (11.2-14.1) % Plt Count 133 L D (150-350) K/uL Neut % (Auto) 63.0 (45.0-80.0) % Lymph % (Auto) 24.2 (10.0-50.0) % Pepin % (Auto) 11.1 (2.0-14.0) % Eos % (Auto) 1.2 (0.0-5.0) % Baso % (Auto) 0.5 (0.0-2.0) % Neut # (Auto) 4.84 (1.40-7.00) K/uL Lymph # (Auto) 1.86 (0.50-3.50) K/uL Pepin # (Auto) 0.85 (0.00-1.00) K/uL Eos # (Auto) 0.09 (0.00-0.50) K/uL Baso # (Auto) 0.04 (0.00-0.20) K/uL D-Dimer, Quantitative 1100 H (0-400) ng/mL Sodium 141 (136-145) mmol/L Potassium 4.2 (3.5-5.1) mmol/L Chloride 102 (98-107) mmol/L Carbon Dioxide 22.3 (21.0-32.0) mmol/L BUN 25 H (7-18) mg/dL Creatinine 0.71 (0.51-1.17) mg/dL Est Cr Clr Drug Dosing TNP Estimated GFR (MDRD) > 60 mL/min Glucose 112 H (74-106) mg/dL Calcium 9.0 (8.5-10.1) mg/dL Total Bilirubin 0.8 (0.2-1.0) mg/dL AST 28 (15-37) U/L ALT 33 (12-78) U/L Alkaline Phosphatase 100 (46-116) IU/L Creatine Kinase 111 (26-308) U/L Creatine Kinase Index 1.8 (0.0-2.5) % CK-MB (CK-2) 2.00 (0.00-3.60) ng/mL Total Protein 7.4 (6.4-8.2) g/dL Albumin 3.9 (3.4-5.0) g/dL Specimen Type Urine Color Urine Appearance Urine pH (5.0-9.0) Ur Specific Reading (1.005-1.030) Urine Protein (NEGATIVE) mg/dL Urine Glucose (UA) (NEGATIVE) mg/dL Urine Ketones (NEGATIVE) mg/dL Urine Occult Blood (NEGATIVE) Urine Nitrite (NEGATIVE) Urine Bilirubin (NEGATIVE) Urine Urobilinogen (0.2-1.0) E.U./dL Ur Leukocyte Esterase (NEGATIVE) Urine RBC /HPF Urine WBC /HPF Ur Epithelial Cells /LPF Urine Bacteria (NONE TO FEW) /HPF Hyaline Casts (NEGATIVE) /LPF Granular Casts (NEGATIVE) /LPF Urine Mucus (NEGATIVE) /LPF Urine Opiates Screen (NEGATIVE) Urine Methadone Screen (NEGATIVE) U Acetaminophen Screen (NEGATIVE) Ur Barbiturates Screen (NEGATIVE) Ur Tricyclics Screen (NEGATIVE) Ur Phencyclidine Scrn (NEGATIVE) Ur Amphetamine Screen (NEGATIVE) U Methamphetamines Scrn (NEGATIVE) U Benzodiazepines Scrn (NEGATIVE) U Cocaine Metab Screen (NEGATIVE) U Marijuana (THC) Screen (NEGATIVE) Ethyl Alcohol 0.202 H (0.000-0.080) g/dL 02/13/17 02/13/17 Range/Units 06:08 06:08 WBC (4.0-10.2) K/uL RBC (4.33-5.41) M/uL Hgb (13.1-16.8) g/dL Hct (39.0-49.0) % MCV (84.0-98.0) fL MCH (28.2-33.3) pg MCHC (31.7-36.0) g/dL RDW (11.2-14.1) % Plt Count (150-350) K/uL Neut % (Auto) (45.0-80.0) % Lymph % (Auto) (10.0-50.0) % Pepin % (Auto) (2.0-14.0) % Eos % (Auto) (0.0-5.0) % Baso % (Auto) (0.0-2.0) % Neut # (Auto) (1.40-7.00) K/uL Lymph # (Auto) (0.50-3.50) K/uL Pepin # (Auto) (0.00-1.00) K/uL Eos # (Auto) (0.00-0.50) K/uL Baso # (Auto) (0.00-0.20) K/uL D-Dimer, Quantitative (0-400) ng/mL Sodium (136-145) mmol/L Potassium (3.5-5.1) mmol/L Chloride (98-107) mmol/L Carbon Dioxide (21.0-32.0) mmol/L BUN (7-18) mg/dL Creatinine (0.51-1.17) mg/dL Est Cr Clr Drug Dosing Estimated GFR (MDRD) mL/min Glucose (74-106) mg/dL Calcium (8.5-10.1) mg/dL Total Bilirubin (0.2-1.0) mg/dL AST (15-37) U/L ALT (12-78) U/L Alkaline Phosphatase (46-116) IU/L Creatine Kinase (26-308) U/L Creatine Kinase Index (0.0-2.5) % CK-MB (CK-2) (0.00-3.60) ng/mL Total Protein (6.4-8.2) g/dL Albumin (3.4-5.0) g/dL Specimen Type Urinblad Urine Color Yellow Urine Appearance Clear Urine pH 5.0 (5.0-9.0) Ur Specific Reading <= 1.005 (1.005-1.030) Urine Protein Negative (NEGATIVE) mg/dL Urine Glucose (UA) Negative (NEGATIVE) mg/dL Urine Ketones 15 H (NEGATIVE) mg/dL Urine Occult Blood Negative (NEGATIVE) Urine Nitrite Negative (NEGATIVE) Urine Bilirubin Negative (NEGATIVE) Urine Urobilinogen 0.2 (0.2-1.0) E.U./dL Ur Leukocyte Esterase Negative (NEGATIVE) Urine RBC Not seen /HPF Urine WBC 0-5 /HPF Ur Epithelial Cells Few /LPF Urine Bacteria Occasional (NONE TO FEW) /HPF Hyaline Casts Few H (NEGATIVE) /LPF Granular Casts Few H (NEGATIVE) /LPF Urine Mucus Occasional H (NEGATIVE) /LPF Urine Opiates Screen Negative (NEGATIVE) Urine Methadone Screen Negative (NEGATIVE) U Acetaminophen Screen Positive H (NEGATIVE) Ur Barbiturates Screen Negative (NEGATIVE) Ur Tricyclics Screen Negative (NEGATIVE) Ur Phencyclidine Scrn Negative (NEGATIVE) Ur Amphetamine Screen Negative (NEGATIVE) U Methamphetamines Scrn Negative (NEGATIVE) U Benzodiazepines Scrn Negative (NEGATIVE) U Cocaine Metab Screen Negative (NEGATIVE) U Marijuana (THC) Screen Negative (NEGATIVE) Ethyl Alcohol (0.000-0.080) g/dL Meds: Medications Generic Name Dose Route Start Last Admin Trade Name Freq PRN Reason Stop Dose Admin Sodium Chloride 10 ml 02/13/17 05:51 Saline Flush FLUSH ASDIRECTED PRN Keep Vein Open Discontinued Medications Generic Name Dose Route Start Last Admin Trade Name Freq PRN Reason Stop Dose Admin Al Hydroxide/Mg Hydroxide 30 ml 02/13/17 06:37 02/13/17 06:40 Gi Cocktail PO 02/13/17 06:38 30 ml ONETIME ONE Administration Hydromorphone HCl 1 mg 02/13/17 07:10 02/13/17 07:17 Dilaudid IVPUSH 02/13/17 07:11 1 mg ONETIME ONE Administration Ketorolac Tromethamine 60 mg 02/13/17 06:57 02/13/17 07:05 Toradol IM 02/13/17 06:58 60 mg ONETIME ONE Administration Ondansetron HCl 4 mg 02/13/17 06:57 02/13/17 07:05 Zofran Odt PO 02/13/17 06:58 4 mg ONETIME ONE Administration Pantoprazole Sodium 40 mg 02/13/17 07:20 02/13/17 07:29 Protonix PO 02/13/17 07:21 Not Given ONETIME ONE - Re-Assessments/Exams Free Text/Narrative Re-Assessment/Exam: 02/13/17 07:25 CBC/Chem/UA/drug screen/troponin unremarkable. EKG showed normal sinus rhythm. Chest xray showed no acute changes when compared to previous films. ETOH increased to 0.2 DDimer increased to 1100. Patient denies feeling SOB. Room air sats 95%. Denies chest pain/SOB at this time. Denies leg pain. Call placed to [facility] and spoke to about patient. Transfer of patient to [facility] to continue evaluation. They can obtain stat MRI as well as have spinal surgery consult on patient if needed. They were made aware of the increased DDimer and did not request further evaluation at our facility prior to transfer. Would be unable to perform CTA chest here also due to inability to get IV in place. Patient did have relief of lower chest/epigastric pain with GI cocktail. Not taking Naloxone. Able to give IM Toradol and Dilaudid as well as PO Zofran. Unable to establish IV despite multiple attempts (4 by EMS, additional attempts once in ER). Transfer by EMS arranged. Departure - Departure Time of Disposition: 07:47 Disposition: DC/Tfer to Acute Hospital 02 Condition: Good Clinical Impression: Intoxication, Elevated d-dimer, Heartburn, Epigastric pain Low back pain Qualifiers: Chronicity: acute Back pain laterality: bilateral Sciatica presence: with sciatica Sciatica laterality: bilateral sciatica Qualified Code(s): M54.42 - Lumbago with sciatica, left side - Discharge Information Referrals: PCP,Unknown [Primary Care Provider] - Forms: ED Department Discharge - My Orders Last 24 Hours: My Active Orders 02/13/17 05:51 Sodium Chloride 0.9% [Saline Flush] 10 ml FLUSH ASDIRECTED PRN Saline Lock Insert [OM.PC] Stat 02/13/17 05:52 EKG Documentation Completion [RC] ASDIRECTED Chest 1V Frontal [CR] Stat - Assessment/Plan Last 24 Hours: My Active Orders 02/13/17 05:51 Sodium Chloride 0.9% [Saline Flush] 10 ml FLUSH ASDIRECTED PRN Saline Lock Insert [OM.PC] Stat 02/13/17 05:52 EKG Documentation Completion [RC] ASDIRECTED Chest 1V Frontal [CR] Stat
[2017-02-13 06:29] LABS: CHLORIDE,CL 102 mmol/L (98-107); SODIUM,NA 141 mmol/L (136-145)
[2017-02-13] MEDS ORDERED: GI Cocktail Oral Solution 30 ML PO ONE (06:37)
[2017-02-13] MEDS ORDERED: Ketorolac 60 MG/2 ML SDV IM ONE (06:57)
[2017-02-13] MEDS ORDERED: Ondansetron 4 MG Tab.DIS PO ONE (06:57)
[2017-02-13] MEDS ORDERED: HYDROmorphone 1 MG/ML Syringe IVPUSH ONE (07:10)
[2017-02-13] MEDS ORDERED: Pantoprazole 40 MG Tab.CR PO ONE (07:20)
[2017-02-13 08:00] VITALS: BP 150/84
== END 2017-02-13 07:45 ==
LOC: LL.ED 05:40
DX: M54.42 Lumbago with sciatica, left side (principal); F10.129 Alcohol abuse with intoxication, unspecified; R12 Heartburn; R10.13 Epigastric pain; R79.1 Abnormal coagulation profile; Y90.7 Blood alcohol level of 200-239 mg/100 ml; I10 Essential (primary) hypertension; E78.00 Pure hypercholesterolemia, unspecified; I25.10 Atherosclerotic heart disease of native coronary artery without angina pectoris; J44.9 Chronic obstructive pulmonary disease, unspecified; K21.9 Gastro-esophageal reflux disease without esophagitis; E11.42 Type 2 diabetes mellitus with diabetic polyneuropathy; F32.9 Major depressive disorder, single episode, unspecified; Z87.891 Personal history of nicotine dependence; Z79.84 Long term (current) use of oral hypoglycemic drugs; Z79.899 Other long term (current) drug therapy; Z88.6 Allergy status to analgesic agent
CPT/HCPCS: 36415; 71045; 80053; 80305; 81001; 82550; 82553; 85025; 85379; 93005; 93010; 96372; 99285; A9270-GY; G0480; J1170; J1885

== ENCOUNTER 2018-09-15 14:44 | Emergency (ER) | payer MEDICARE, BC ==
[2018-09-15 15:04] VITALS: BP 151/82; PULSE 70
[2018-09-15 15:42] LABS: CHLORIDE,CL 102 mmol/L (98-107); SODIUM,NA 138 mmol/L (136-145)
[2018-09-15] MEDS ORDERED: Ketorolac 60 MG/2 ML SDV IM ONE (15:50)
--- NOTE | 2018-09-15 15:58 | EDM.PDOC ---
ED HPI GENERAL MEDICAL PROBLEM - General Chief Complaint: Back Pain or Injury Stated Complaint: Back Pain Time Seen by Provider: 09/15/18 14:55 Source of Information: Reports: Patient, Family History Limitations: Reports: Intoxication - History of Present Illness INITIAL COMMENTS - FREE TEXT/NARRATIVE: Patient is a 68-year-old well known to myself who came in with chief complaint of midthoracic pain states pain is all 6 out of 10 patient has had history of chronic back pain but had been doing till about 3 weeks ago when he went to the doctor and her something crack at this time they did x-rays and ordered x-rays and an MRI to be done later patient is not scheduled to see back surgery until about the of this month Onset: Gradual Duration: Day(s):, Getting Worse Location: Reports: Back, Radiates to (Right-sided buttocks) Quality: Reports: Ache, Sharp Severity: Moderate Improves with: Reports: Rest Worsens with: Reports: None Context: Reports: Activity Treatments SCRUB TECH: Reports: Acetaminophen, NSAIDS Middle Back Pain Score (Numeric/FACES): 6 - Related Data Allergies Allergy/AdvReac Type Severity Reaction Status Date / Time aspirin Allergy Other Verified 09/15/18 14:45 Home Meds: Home Meds DULoxetine [Cymbalta] 30 mg PO DAILY 08/28/14 [History] Ferrous Sulfate 325 mg PO BIDMEALS 08/28/14 [History] Folic Acid 1 mg PO DAILY 08/28/14 [History] Naltrexone 50 mg PO BEDTIME #30 tablet 11/17/14 [Rx] Liraglutide [Victoza] 1.8 mg SUBCUT DAILY@1200 05/30/15 [History] metFORMIN HCl [Metformin ER Osmotic] 1,000 mg PO BID 05/30/15 [History] Multivitamins [Tab-A-Carrie] 1 tab PO DAILY 02/01/16 [History] Tamsulosin [Flomax] 0.4 mg PO BEDTIME 02/01/16 [History] buPROPion [Wellbutrin XL] 150 mg PO DAILY 03/08/16 [History] Metoprolol Tartrate [Lopressor] 12.5 mg PO BID 11/03/16 [History] Acetaminophen 650 mg PO Q4HR PRN 01/02/17 [History] Cyanocobalamin (Vitamin B-12) [B-12] 1,000 mcg PO DAILY 01/02/17 [History] Docusate Sodium/Sennosides [Senna Plus] 1 tab PO BID PRN 01/02/17 [History] Simvastatin [Zocor] 40 mg PO BEDTIME 01/02/17 [History] Vitamin B Complex [Super B-50 Complex] 1 tab PO DAILY 01/02/17 [History] hydrOXYzine Pamoate [Vistaril] 50 mg PO TID PRN cap 01/04/17 [Rx] Pregabalin [Lyrica] 100 mg PO TID 09/15/18 [History] Past Medical History HEENT History: Reports: Hard of Hearing, Impaired Vision Other HEENT History: Reading glasses despite previous LASIK surgery, mild borderline presbycusis with no therapy Cardiovascular History: Reports: Afib, Arrhythmia, CAD, Heart Murmur, High Cholesterol, Hypertension, Other (See Below) Other Cardiovascular History: Atrial fibrillation versus PSVT with status post ablation as below, incomplete right bundle branch block, dyslipidemia, hypertensive cardiomegaly, mild diffuse valvular disease, PACs, Respiratory History: Reports: COPD, Sleep Apnea, Other (See Below) Other Respiratory History: Restless leg syndrome Gastrointestinal History: Reports: Cholelithiasis, Colon Polyp, Diverticulosis, Gastritis, GERD, Hemorrhoids, Hiatal Hernia, PUD, Other (See Below) Other Gastrointestinal History: recurrent rectal fissures/fistulas, Gilbert's syndrome, mild colitis, gastritis, esophagitis, and duodenitis; hyperplastic colonic polyp at 30 cm on 03/12/2001, fatty liver Genitourinary History: Reports: BPH Musculoskeletal History: Reports: Arthritis, Back Pain, Chronic, Fracture, Gout , Neck Pain, Chronic, Osteoarthritis, Other (See Below) Other Musculoskeletal History: Left wrist fracture on 08/29/09 with fixation as below, right thumb fracture in about 1999 with surgery as below, vertebral body compression fractures of T5, T7, and T8-T10 with mild scoliosis by CT scan Neurological History: Reports: Neuropathy, Diabetic, Neuropathy, Peripheral, Other (See Below) Other Neuro History: No history of DTs or seizures from alcohol use, mild cerebrovascular disease by CT scan of the head as below Psychiatric History: Reports: Addiction, Anxiety, Depression, Psych Hospitalization(s), Other (See Below) Other Psychiatric History: Alcohol abuse with previous history of alcohol treatment including inpatient detoxification in January 2016 through February 2015 for 2 weeks, previous tobacco and and chronic narcotic use, chronic insomnia Endocrine/Metabolic History: Reports: Diabetes, Type II, Other (See Below) Other Endocrine/Metabolic History: Diabetes mellitus-diet controlled with previous history of occasional hypoglycemia and current medication program for weight loss Hematologic History: Reports: Anemia, B12 Deficiency, Folic Acid, Iron Deficiency, Polycythemia Immunologic History: Reports: None Oncologic (Cancer) History: Reports: None Dermatologic History: Reports: None - Infectious Disease History Infectious Disease History: Reports: Chicken Pox, Measles, Mumps - Past Surgical History Head Surgeries/Procedures: Reports: None HEENT Surgical History: Reports: Eye Surgery, LASIK, Oral Surgery, Other (See Below) Cardiovascular Surgical History: Reports: Cardiac Ablation, Other (See Below) GI Surgical History: Reports: Bariatric Procedure, Cholecystectomy, Colonoscopy , EGD, Polypectomy, Other (See Below) Male Surgical History: Reports: Circumcision, Vasectomy, Other (See Below) Musculoskeletal Surgical History: Reports: Carpal Tunnel, Hip Replacement, Knee Replacement, ORIF - Past Imaging History Past Imaging History: Reports: Cardiac Echo, CAT Scan, MRI, Sleep Study, Stress Testing, Ultrasound, Other (See Below) Social & Family History - Family History HEENT: Reports: Macular Degeneration, Other (See Below) Other HEENT Family History: Mother with macular degeneration Cardiac: Reports: Blood Clots/VTE/DVT, Bypass, CAD, Heart Failure, Heart Murmur , Heart Valve Replacement, High Cholesterol, Hypertension, MS, Other (See Below) Other Cardiac Family History: Mother with three-vessel CABG at age 73 with CHF, valvular surgery, and possible previous MS, hypertension in mother and 2 brothers, brother with hyperlipidemia, mother with history of DVT in the legs in her 60s Respiratory: Reports: None GI: Reports: Cholelithiasis, Other (See Below) Other GI Family History: Mother with cholelithiasis : Reports: None OBGYN: Reports: None Musculoskeletal: Reports: Arthritis, Gout, Osteoarthritis, Osteoporosis, Other ( See Below) Other Musculoskeletal Family History: Maternal aunt with osteoarthritis, brother with gout Neurological: Reports: Alzheimers Disease, CVA, Dementia, Other (See Below) Other Neurological Family History: Mother with CVA in her 70s and history of Alzheimer's disease Psychiatric: Reports: Anxiety, Depression, Suicide Attempt, Other (See Below) Other Psychiatric Family History: Father and sister with history of alcohol abuse and anxiety depression which did require alcohol treatment and hospitalizations, father with history of suicide attempt, Endocrine/Metabolic: Reports: Diabetes, type II, Other (See Below) Other Endocrine/Metabolic Family History: Borderline diabetes mellitus in father Hematologic: Reports: None Immunologic: Reports: None Dermatologic: Reports: None Oncologic: Reports: Breast, Lung, Other (See Below) Other Oncologic Family History: Paternal aunt with lung cancer fatal in her 60s with limited previous tobacco use, paternal cousin with lung cancer at age 56 likely secondary to tobacco use, sister with breast cancer in her 50s - Tobacco Use Smoking Status *Q: Unknown Ever Smoked - Caffeine Use Caffeine Use: Reports: Soda - Living Situation & Occupation Living situation: Reports: , with Family Occupation: Retired ED ROS GENERAL - Review of Systems Review Of Systems: See Below Constitutional: Reports: No Symptoms HEENT: Reports: No Symptoms Respiratory: Reports: No Symptoms Cardiovascular: Reports: No Symptoms Endocrine: Reports: No Symptoms GI/Abdominal: Reports: No Symptoms : Reports: No Symptoms Musculoskeletal: Reports: Back Pain Skin: Reports: No Symptoms Psychiatric: Reports: No Symptoms Hematologic/Lymphatic: Reports: No Symptoms ED EXAM,LOWER BACK PAIN/INJURY - Physical Exam Exam: See Below Exam Limited By: No Limitations General Appearance: Alert, WD/WN, No Apparent Distress Ears: Normal External Exam, Normal Canal, Hearing Grossly Normal, Normal TMs Nose: Normal Inspection, Normal Mucosa, No Blood Throat/Mouth: Normal Inspection, Normal Lips, Normal Teeth, Normal Gums, Normal Oropharynx, Normal Voice, No Airway Compromise Head: Atraumatic, Normocephalic Neck: Normal Inspection, Supple, Non-Tender, Full Range of Motion Respiratory/Chest: No Respiratory Distress, Lungs Clear, Normal Breath Sounds, No Accessory Muscle Use, Chest Non-Tender Cardiovascular: Normal Peripheral Pulses, Regular Rate, Rhythm, No Edema, No Gallop, No JVD, No Murmur, No Rub GI/Abdominal: Normal Bowel Sounds, Soft, Non-Tender, No Organomegaly, No Distention, No Abnormal Bruit, No Mass (Male) Exam: Deferred Rectal (Males) Exam: Deferred Back Exam: Decreased Range of Motion, Muscle Spasm Extremities: Limited Range of Motion Neurological: Alert, Normal Mood/Affect, Normal Dorsiflexion, CN II-XII Intact, Normal Plantar Flexion, Normal Gait, Normal Reflexes, No Motor/Sensory Deficits , Oriented x 3, Straight Leg Raise (L) (45), Straight Leg Raise (R) (45) Psychiatric: Normal Affect, Normal Mood Skin Exam: Warm, Dry, Intact, Normal Color, No Rash Lymphatic: No Adenopathy Course - Vital Signs Last Recorded V/S: Last Vital Signs Temp 98.0 F 09/15/18 14:45 Pulse 70 09/15/18 14:45 Resp 14 09/15/18 14:45 BP 151/82 H 09/15/18 14:45 Pulse Ox 97 09/15/18 14:45 - Orders/Labs/Meds Orders: Active Orders 24 hr Category Date Time Status Lumbar Spine 2 or 3V [CR] Stat Exams 09/15/18 15:09 Ordered Thoracic Spine 2V [CR] Stat Exams 09/15/18 15:33 Ordered Labs: Laboratory Tests 09/15/18 09/15/18 Range/Units 15:22 15:22 WBC 5.8 (4.0-10.2) K/uL RBC 4.39 (4.33-5.41) M/uL Hgb 14.8 (13.1-16.8) g/dL Hct 40.8 (39.0-49.0) % MCV 92.9 (84.0-98.0) fL MCH 33.7 H (28.2-33.3) pg MCHC 36.3 H (31.7-36.0) g/dL RDW 13.6 (11.2-14.1) % Plt Count 161 (150-350) K/uL Neut % (Auto) 61.6 (45.0-80.0) % Lymph % (Auto) 26.0 (10.0-50.0) % [place] % (Auto) 8.2 (2.0-14.0) % Eos % (Auto) 3.3 (0.0-5.0) % Baso % (Auto) 0.9 (0.0-2.0) % Neut # (Auto) 3.55 (1.40-7.00) K/uL Lymph # (Auto) 1.50 (0.50-3.50) K/uL [place] # (Auto) 0.47 (0.00-1.00) K/uL Eos # (Auto) 0.19 (0.00-0.50) K/uL Baso # (Auto) 0.05 (0.00-0.20) K/uL Sodium 138 (136-145) mmol/L Potassium 3.6 (3.5-5.1) mmol/L Chloride 102 (98-107) mmol/L Carbon Dioxide 25.4 (21.0-32.0) mmol/L BUN 12 (7-18) mg/dL Creatinine 0.86 (0.51-1.17) mg/dL Est Cr Clr Drug Dosing 80.64 mL/min Estimated GFR (MDRD) > 60 mL/min Glucose 99 (74-106) mg/dL Calcium 8.4 L (8.5-10.1) mg/dL Total Bilirubin 0.8 (0.2-1.0) mg/dL AST 34 (15-37) U/L ALT 41 (12-78) U/L Alkaline Phosphatase 81 (46-116) IU/L Total Protein 6.5 (6.4-8.2) g/dL Albumin 3.5 (3.4-5.0) g/dL Ethyl Alcohol 0.174 H (0.000-0.080) g/dL Meds: Medications Discontinued Medications Generic Name Dose Route Start Last Admin Trade Name Freq PRN Reason Stop Dose Admin Ketorolac Tromethamine 60 mg 09/15/18 15:50 Toradol IM 09/15/18 15:51 ONETIME ONE Departure - Departure Time of Disposition: 16:01 Disposition: Home, Self-Care 01 Condition: Fair Clinical Impression: Pain - Discharge Information *PRESCRIPTION DRUG MONITORING PROGRAM REVIEWED*: No *COPY OF PRESCRIPTION DRUG MONITORING REPORT IN PATIENT PRISCILA: No Referrals: Waleska Sanz SUBSTANCE ABUSE THERAPIST [Primary Care Provider] - Care Plan Goals: Patient complaint of lower back pain secondary to back injury patient has been doing well till about 3 weeks ago patient has been seen by a back doctor at his schedule him for a MRI in about 15 days we will go ahead and cancel and end do an MRI Monday in the meantime we'll give him Toradol 10 mg every 6 hours for pain no muscle relaxant given secondary to the fact that he is intoxicated alcohol level 0.174. - My Orders Last 24 Hours: My Active Orders 09/15/18 15:09 Lumbar Spine 2 or 3V [CR] Stat 09/15/18 15:33 Thoracic Spine 2V [CR] Stat - Assessment/Plan Last 24 Hours: My Active Orders 09/15/18 15:09 Lumbar Spine 2 or 3V [CR] Stat 09/15/18 15:33 Thoracic Spine 2V [CR] Stat
== END 2018-09-15 16:07 | disposition home or self-care (01) ==
LOC: LL.ED 14:44
DX: M54.6 Pain in thoracic spine (principal); I48.91 Unspecified atrial fibrillation; E78.00 Pure hypercholesterolemia, unspecified; I10 Essential (primary) hypertension; I25.10 Atherosclerotic heart disease of native coronary artery without angina pectoris; J44.9 Chronic obstructive pulmonary disease, unspecified; E11.40 Type 2 diabetes mellitus with diabetic neuropathy, unspecified; F41.9 Anxiety disorder, unspecified; F32.9 Major depressive disorder, single episode, unspecified; Z88.6 Allergy status to analgesic agent; Z79.899 Other long term (current) drug therapy; Z79.84 Long term (current) use of oral hypoglycemic drugs
CPT/HCPCS: 36415; 72070; 72100; 80053; 85025; 99283; G0480; J1885

== ENCOUNTER 2018-09-17 16:45 | Emergency (ER) | payer MEDICARE, BC ==
--- NOTE | 2018-09-17 16:49 | EDM.PDOC ---
ED HPI GENERAL MEDICAL PROBLEM - General Chief Complaint: Abdominal Pain Stated Complaint: Abdominal Pain Time Seen by Provider: 09/17/18 16:48 Source of Information: Reports: Patient, Family (), Old Records ([facility] chart/EMR) History Limitations: Reports: No Limitations - History of Present Illness INITIAL COMMENTS - FREE TEXT/NARRATIVE: The patient was brought to the emergency room via private automobile by his for evaluation of 8/10 mostly right upper quadrant sharp abdominal pain with radiation to the retrosternal region and cervical region bilaterally and associated with some nausea. Symptoms started at about 14:00 this afternoon and have progressed since about 16:00 hours. His did give him 325 mg of aspirin at 16:15 hours, however no other medications or treatment to this point. Note that the patient has been having some increased heartburn during the last several days with occasional OTC antacid use. The patient denies any chest pressure, heart flutter, dizziness, orthostasis, orthopnea, paresthesias , recent decreased exercise tolerance, or any other anginal-type symptoms, however moderate diaphoresis with his abdominal pain as above. No recent history of emesis diarrhea, melena, gross hematochezia, or any food intolerance , including fatty foods, etc. with normal bowel movement at noon yesterday. He denies any gross hematuria, colic, or other UTI symptoms. The patient also denies any recent fever, cough, wheezing, dyspnea, etc.. Onset: Today, Gradual Onset Date: 09/17/18 Onset Time: 14:00 Duration: Constant, Getting Worse Location: Reports: Chest, Abdomen, Radiates to (As above). Denies: Head, Face, Neck, Back, Pelvis, Upper Extremity, Left, Upper Extremity, Right Quality: Reports: Same as Previous Episode, Sharp Severity: Moderate Improves with: Reports: None Worsens with: Reports: None Context: Reports: Other (As above). Denies: Sick Contact, Trauma Associated Symptoms: Reports: Chest Pain, Diaphoresis, Nausea/Vomiting (No emesis). Denies: Confusion, Cough, Fever/Chills, Headaches, Loss of Appetite, Malaise, Shortness of Breath, Syncope Treatments BASIN OPERATOR: Reports: Aspirin, Other Medication(s) (As above) Right Upper Abdomen Pain Score (Numeric/FACES): 8 - Related Data Allergies Allergy/AdvReac Type Severity Reaction Status Date / Time aspirin Allergy Other Verified 09/17/18 17:06 Home Meds: Home Meds DULoxetine [Cymbalta] 30 mg PO DAILY 08/28/14 [History] Ferrous Sulfate 325 mg PO BIDMEALS 08/28/14 [History] Folic Acid 1 mg PO DAILY 08/28/14 [History] Naltrexone 50 mg PO BEDTIME #30 tablet 11/17/14 [Rx] Liraglutide [Victoza] 1.8 mg SUBCUT DAILY@1200 05/30/15 [History] metFORMIN HCl [Metformin ER Osmotic] 1,000 mg PO BID 05/30/15 [History] Multivitamins [Tab-A-Carrie] 1 tab PO DAILY 02/01/16 [History] Tamsulosin [Flomax] 0.4 mg PO BEDTIME 02/01/16 [History] buPROPion [Wellbutrin XL] 150 mg PO DAILY 03/08/16 [History] Metoprolol Tartrate [Lopressor] 12.5 mg PO BID 11/03/16 [History] Acetaminophen 650 mg PO Q4HR PRN 01/02/17 [History] Cyanocobalamin (Vitamin B-12) [B-12] 1,000 mcg PO DAILY 01/02/17 [History] Docusate Sodium/Sennosides [Senna Plus] 1 tab PO BID PRN 01/02/17 [History] Simvastatin [Zocor] 40 mg PO BEDTIME 01/02/17 [History] Vitamin B Complex [Super B-50 Complex] 1 tab PO DAILY 01/02/17 [History] hydrOXYzine Pamoate [Vistaril] 50 mg PO TID PRN cap 01/04/17 [Rx] Pregabalin [Lyrica] 100 mg PO TID 09/15/18 [History] Past Medical History HEENT History: Reports: Hard of Hearing, Impaired Vision. Denies: Allergic Rhinitis, Cataract, Glaucoma, Macular Degeneration, Otitis Media, Retinal Detachment Other HEENT History: Reading glasses despite previous LASIK surgery, mild borderline presbycusis with no therapy. Floaters. Cardiovascular History: Reports: Afib, Arrhythmia, CAD, Heart Murmur, High Cholesterol, Hypertension, Other (See Below). Denies: Aneurysm, Blood Clots/VTE /DVT, Cardiomyopathy, Heart Failure, NC, PVD, Syncope Other Cardiovascular History: Atrial fibrillation versus PSVT with status post ablation as below, incomplete right bundle branch block, dyslipidemia, hypertensive cardiomegaly, mild diffuse valvular disease, PACs, history of d- dimer elevation. Respiratory History: Reports: Bronchitis, Recurrent, COPD, Intubation, Previous , Pneumonia, Recurrent, Sleep Apnea, Other (See Below). Denies: Asthma, Intubation, Difficult, PE, Pneumothorax, Pulmonary Fibrosis, TB Other Respiratory History: Restless leg syndrome. Patient has been compliant with his CPAP. Gastrointestinal History: Reports: Cholelithiasis, Chronic Diarrhea, Colon Polyp , Diverticulosis, Fecal Incontinence, Gastritis, GERD, Hemorrhoids, Hiatal Hernia, PUD, Other (See Below). Denies: Bowel Obstruction, Celiac Disease, Chronic Constipation, GI Bleed, Hepatitis, Inflammatory Bowel Disease, Irritable Bowel Syndrome, Jaundice, Pancreatitis Other Gastrointestinal History: recurrent rectal fissures/fistulas, Gilbert's syndrome, mild colitis, gastritis, esophagitis, and duodenitis; hyperplastic colonic polyp at 30 cm on 03/12/2001, fatty liver Genitourinary History: Reports: BPH. Denies: Acute Renal Failure, Chronic Renal Insuffiency, Renal Calculus, STD, Urinary Incontinence, UTI, Recurrent Musculoskeletal History: Reports: Arthritis, Back Pain, Chronic, Fracture, Gout , Neck Pain, Chronic, Osteoarthritis, Other (See Below). Denies: Amputation, Osteoporosis, RA, SLE Other Musculoskeletal History: Left wrist fracture on 08/29/09 with fixation as below, right thumb fracture in about 1999 with surgery as below, vertebral body compression fractures of T5, T7, and T8-T11 with kyphoscoliosis. Neurological History: Reports: Neuropathy, Diabetic, Neuropathy, Peripheral, Other (See Below). Denies: Cerebral Aneurysms, Concussion, CVA, Headaches, Chronic, Head Trauma, Migraines, MS, Parkinson's, Seizure, TIA Other Neuro History: No history of DTs or seizures from alcohol use, mild cerebrovascular disease by CT scan of the head as below Psychiatric History: Reports: Addiction, Anxiety, Depression, Psych Hospitalization(s), Other (See Below). Denies: Abuse, Victim of, ADD, ADHD, Hallucinations, PTSD, Suicide Attempt, Suicidal Ideation Other Psychiatric History: Alcohol abuse with previous history of alcohol treatment including inpatient detoxification in January 2016 through February 2015 for 2 weeks, previous tobacco and and chronic narcotic use, chronic insomnia Endocrine/Metabolic History: Reports: Diabetes, Type II, Other (See Below). Denies: Diabetes, Type I, Diabetes Mellitus, Type 3c, Hypothyroidism, IDDM, Osteopenia, Osteoporosis Other Endocrine/Metabolic History: Diabetes mellitus-diet controlled with previous history of occasional hypoglycemia and current medication program for weight loss Hematologic History: Reports: Anemia, B12 Deficiency, Blood Transfusion(s), Folic Acid, Iron Deficiency, Polycythemia, Other (See Below) Other Hematologic History: Transfusions with lumbar surgery as below. Immunologic History: Reports: None. Denies: AIDS, HIV, SLE Oncologic (Cancer) History: Reports: None. Denies: Basal Cell Carcinoma, Bladder, Colon, Hodgkin's Lymphoma, Leukemia, Lymphoma, Malignant Melanoma, Non- Hodgkin's Lymphoma, Prostate, Squamous Cell Carcinoma Dermatologic History: Reports: None. Denies: Eczema, Psoriasis - Infectious Disease History Infectious Disease History: Reports: Chicken Pox, Measles, Mumps. Denies: C- Difficile, Meningitis, Mononucleosis, MRSA, Pertussis (Whooping Cough), Rheumatic Fever, Rubella, Scarlet Fever, Shingles, TB, VRE - Past Surgical History Head Surgeries/Procedures: Reports: None HEENT Surgical History: Reports: Eye Surgery, LASIK, Oral Surgery, Other (See Below). Denies: Adenoidectomy, Cataract Surgery, Laser Surgery, Myringotomy w Tube(s), Naso-Sinus Surgery, Tonsillectomy Other HEENT Surgeries/Procedures: LASIK bilaterally on 12/08/1999. Bilateral upper blepharoplasty and about 2013. Complete teeth traction uppers with multiple lower tooth extractions including lower dental implants and previous partial dentures Cardiovascular Surgical History: Reports: Cardiac Ablation, Other (See Below). Denies: Varicose Other Cardiovascular Surgeries/Procedures: Cardiac ablation in November 2014 for atrial fibrillation. Respiratory Surgical History: Reports: None. Denies: Thoracentesis GI Surgical History: Reports: Bariatric Procedure, Cholecystectomy, Colonoscopy , EGD, Polypectomy, Other (See Below). Denies: Appendectomy, Hernia, Inguinal, Hernia Repair/Other Other GI Surgeries/Procedures: Last colonoscopy on 07/19/12 with previous EGD and colonoscopy on 03/12/2001. Gastric bypass in 2005. Perirectal fistulectomy with concurrent hemorrhoidectomy on 02/11/1999 with repeat surgery in November 2015. Polypectomy at 30 cm on 03/12/2001. Laparoscopic cholecystectomy on 08/28/14. Male Surgical History: Reports: Circumcision, Vasectomy, Other (See Below). Denies: TURP-Transurethral Resection of Prostate Other Male Surgeries/Procedures: Circumcision as an infant. Vasectomy in about 1978. Endocrine Surgical History: Reports: None. Denies: Thyroid Biopsy Neurological Surgical History: Reports: Laminectomy, Lumbar Spine, Spinal Fusion , Thoracic Spine, Other (See Below) Other Neurological Surgeries/Procedures: T11 vertebroplasty. Spinal fusion from T9-L5 in December 2016. [employer] electrical implant on 09/19/17 or treatment of stool incontinence. Musculoskeletal Surgical History: Reports: Carpal Tunnel, Hip Replacement, Knee Replacement, ORIF, Other (See Below). Denies: Arthroscopic Procedure, Ganglion Cyst, Shoulder Surgery Other Musculoskeletal Surgeries/Procedures:: Left wrist ORIF secondary to fracture in August 2009. Excision of a neuroma from digit #2 of the left foot. Left hip TEP. Carpal tunnel release on 12/21/1999 with left carpal tunnel release in January 2000. Partial left knee arthroplasty in February 2011 with a right partial knee arthroplasty in 2013. Right thumb grafting and pinning in about 1999. Oncologic Surgical History: Reports: None Dermatological Surgical History: Reports: None - Past Imaging History Past Imaging History: Reports: Cardiac Echo (Last on 11/18/14.), CAT Scan (CT of the LS spine on 12/12/16, 10/21/16, and 02/01/16. CT of the head, C-spine, and abdomen and pelvis secondary to trauma on 08/29/09. CT of the abdomen and pelvis on 07/15/06.), MRI (MRI of the lumbar spine on 08/22/16 and 09/07/15. MRI of the left knee on 12/01/10.), Sleep Study (09/25/09), Stress Testing (Cardiolite stress test on 11/20/14 with ejection fraction of 57% with previous evaluation on 12/27/01), Ultrasound (Gallbladder ultrasound on 08/27/14), Other (See Below) (EMGs and nerve conduction studies of the upper extremities on 10/14/1999. Electrolytes and renal pheresis on 11/10/1999.) Social & Family History - Family History HEENT: Reports: Cataract, Macular Degeneration, Other (See Below). Denies: Glaucoma, Retinal Detachment Other HEENT Family History: Mother with macular degeneration. Father with cataracts. Cardiac: Reports: Blood Clots/VTE/DVT, Bypass, CAD, Heart Failure, Heart Murmur , Heart Valve Replacement, High Cholesterol, Hypertension, NC, Other (See Below) . Denies: Afib, Aneurysm, Arrhythmia, PVD/COD, Syncope Other Cardiac Family History: Mother with three-vessel CABG at age 73 with CHF, valvular surgery, and possible previous NC, hypertension in mother and 2 brothers, brother with hyperlipidemia, mother with history of DVT in the legs in her 60s Respiratory: Reports: Sleep Apnea, Other (See Below). Denies: Asthma, COPD, PE , Pneumothorax Other Respiratory Family Hisory: Sister with sleep apnea. GI: Reports: Cholelithiasis, Other (See Below). Denies: Celiac Disease, Colon Polyps, GERD, GI bleed, Inflammatory Bowel Disease, Irritable Bowel Syndrome, Pancreatitis Other GI Family History: Mother with cholelithiasis : Reports: None. Denies: Renal Calculus, Renal Disease/Insufficiency OBGYN: Reports: None. Denies: Endometriosis, Recurrent Spontaneous Musculoskeletal: Reports: Arthritis, Gout, Osteoarthritis, Osteoporosis, Other ( See Below). Denies: RA, SLE Other Musculoskeletal Family History: Maternal aunt with osteoarthritis, brother with gout Neurological: Reports: Alzheimers Disease, CVA, Dementia, Other (See Below). Denies: Cerebral Aneurysms, Migraines, Parkinson's, Seizure, TIA Other Neurological Family History: Mother with CVA in her 70s and history of Alzheimer's disease Psychiatric: Reports: Anxiety, Depression, Psych Hospitalization(s), Suicide Attempt, Other (See Below). Denies: Abuse, Victim of, ADD, ADHD Other Psychiatric Family History: Father and sister with history of alcohol abuse and anxiety depression which did require alcohol treatment and hospitalizations, father with history of suicide attempt, Endocrine/Metabolic: Reports: Diabetes, type II, Other (See Below). Denies: Diabetes, Type I, Diabetes Mellitus, Type 3c, Hypothyroidism, IDDM Other Endocrine/Metabolic Family History: Borderline diabetes mellitus in father Hematologic: Reports: None. Denies: Anemia, SLE Immunologic: Reports: None. Denies: AIDS, HIV, SLE Dermatologic: Reports: None. Denies: Eczema, Psoriasis Oncologic: Reports: Breast, Lung, Other (See Below). Denies: Colon, Hodgkin's Lymphoma, Leukemia, Lymphoma, Non-Hodgkin's Lymphoma, Prostate, Skin Other Oncologic Family History: Paternal aunt with lung cancer fatal in her 60s with limited previous tobacco use, paternal cousin with lung cancer at age 56 likely secondary to tobacco use, sister with breast cancer in her 50s - Tobacco Use Smoking Status *Q: Former Smoker Tobacco Use Within Last Twelve Months: No Years of Tobacco use: 30 Packs/Tins Daily: 2 Packs/Tins Daily Comment: Smoking at age 17 with no use since 02/11/1999. Used Tobacco, but Quit: Yes Smoking Cessation Information Provided To Patient: No Second Hand Smoke Education Provided: No - Caffeine Use Caffeine Use: Reports: Coffee (1 cup per day), Soda (6 sodas per day). Denies: Energy Drinks, Tea - Alcohol Use Alcohol Use History: Yes Days Per Week of Alcohol Use: 7 Number of Drinks Per Day: 8 Number of Drinks Per Day Comment: History of alcohol abuse since about age 51 with required treatment as above. Patient is no longer going to at this time. Total Drinks Per Week: 56 Date of Last Drink: 09/17/18 Alcohol Use in Last Twelve Months: Yes Alcohol Use Frequency: Binges - Recreational Drug Use Recreational Drug Use: No Drug Use in Last 12 Months: No Recreational Drug Type: Denies: Amphetamines (Speed), Cocaine, Heroin, Inhalants (Glues, Solvents, Aerosols), LSD (Acid), Marijuana/Hashish, Methamphetamine, Morphine, Oxycodone - Living Situation & Occupation Living situation: Reports: (1967, 5 children), with Family () Occupation: Retired (Retired [employer] at age 65.) ED ROS GENERAL - Review of Systems Review Of Systems: ROS reveals no pertinent complaints other than HPI. ED EXAM, GI/ABD - Physical Exam Exam: See Below Exam Limited By: No Limitations General Appearance: Alert, WD/WN, No Apparent Distress, Anxious (Mild to moderate) Eyes: Bilateral: Normal Appearance (No nystagmus), EOMI (PERRLA) Ears: Normal External Exam, Normal Canal, Hearing Grossly Normal, Normal TMs Nose: Normal Inspection, Normal Mucosa, No Blood Throat/Mouth: Normal Lips, Normal Gums, Normal Oropharynx, Normal Voice, No Airway Compromise. No: Normal Teeth (Complete upper dentures with implants lowers), Dysphagia Head: Atraumatic, Normocephalic. No: Facial Swelling, Facial Tenderness, Sinus Tenderness Neck: Normal Inspection, Supple, Non-Tender, Full Range of Motion. No: Carotid Bruit, Lymphadenopathy (L), Lymphadenopathy (R), Thyromegaly Respiratory/Chest: No Respiratory Distress, No Accessory Muscle Use, Chest Non- Tender, Rales (Mild bilateral basilar rales). No: Rhonchi, Wheezing, Pleural Rub, Retractions Cardiovascular: Normal Peripheral Pulses, Regular Rate, Rhythm, No Edema, No Gallop, No JVD, No Murmur, No Rub. No: Gallop/S3, Gallop/S4, Friction Rub GI/Abdominal Exam: Normal Bowel Sounds, No Organomegaly, No Distention, No Abnormal Bruit, No Mass, Distended, Tender (Moderate right upper quadrant palpation pain), Other (Obese). No: Guarding, Rebound (Male) Exam: Deferred Rectal (Males) Exam: BPH (Moderate), Heme + Stool, Hemorrhoids. No: Black Stool , Bloody Stool, Tenderness (No Reginaldo space tenderness) Back Exam: Decreased Range of Motion (Chronicnote status post fixation/spinal fusion). No: CVA Tenderness (L), CVA Tenderness (R), Muscle Spasm, Paraspinal Tenderness, Vertebral Tenderness Extremities: Normal Inspection, Normal Range of Motion, Non-Tender, No Pedal Edema, Normal Capillary Refill. No: Disha's Sign Neurological: Alert, Oriented, CN II-XII Intact, Normal Cognition, Normal Gait, Normal Reflexes (Negative Babinski's), No Motor/Sensory Deficits Psychiatric: Anxious (Moderate), Depressed Mood (Borderline). No: Tearful Skin Exam: Warm, Normal Color, No Rash, Diaphoretic (Mild). No: Ecchymosis, Petechiae, Wound/Incision Lymphatic: No Adenopathy EKG INTERPRETATION EKG Date: 09/17/18 Time: 16:46 Rhythm: NSR Rate (Beats/Min): 64 [place]: Normal (Neutral cardiac axis) P-Wave: Enlarged (Moderate diffuse biphasic P waves) QRS: Normal (0.09 seconds) ST-T: Normal (T-wave inversion in leads 3stable with new T-wave inversion in lead V1) QT: Normal DC/PQ Interval: 0.20 seconds representing a first new degree AV block Comparison: Change From Previous EKG (As above since 02/13/17) EKG Interpretation Comments: 1. No acute ischemic changes 2. New first degree AV block Repeat EKG at 19:29 hours showed no change from above Course - Vital Signs Last Recorded V/S: Last Vital Signs Temp 36.6 C 09/17/18 22:50 Pulse 91 09/17/18 22:50 Resp 30 H 09/17/18 22:50 BP 125/79 09/17/18 22:50 Pulse Ox 92 L 09/17/18 22:50 Vital Signs - 24 hr 09/17/18 09/17/18 09/17/18 16:48 18:07 18:21 Temperature [ 36.8 C Oral] Pulse, 74 84 85 Peripheral [ Pulse Oximetry] Respiratory 18 20 16 Rate Blood Pressure Blood Pressure 137/84 140/80 146/83 H [Right Arm] O2 Sat by Pulse 96 95 95 Oximetry O2 Sat by Pulse Oximetry [ Nasal Cannula] 09/17/18 09/17/18 09/17/18 18:45 19:00 19:15 Temperature [ Oral] Pulse, 84 85 92 Peripheral [ Pulse Oximetry] Respiratory 22 H 24 H 26 H Rate Blood Pressure Blood Pressure 157/92 H 151/83 H 161/85 H [Right Arm] O2 Sat by Pulse 95 95 94 L Oximetry O2 Sat by Pulse Oximetry [ Nasal Cannula] 09/17/18 09/17/18 09/17/18 19:27 19:30 19:45 Temperature [ Oral] Pulse, 82 72 Peripheral [ Pulse Oximetry] Respiratory 26 H 31 H Rate Blood Pressure 161/85 H Blood Pressure 85/50 L [Right Arm] O2 Sat by Pulse 96 89 L Oximetry O2 Sat by Pulse Oximetry [ Nasal Cannula] 09/17/18 09/17/18 09/17/18 19:50 19:59 20:00 Temperature [ Oral] Pulse, 72 Peripheral [ Pulse Oximetry] Respiratory 31 H 31 H Rate Blood Pressure Blood Pressure 66/48 L 103/60 [Right Arm] O2 Sat by Pulse 92 L Oximetry O2 Sat by Pulse 99 Oximetry [ Nasal Cannula] 09/17/18 09/17/18 09/17/18 20:30 20:45 21:00 Temperature [ Oral] Pulse, 90 90 90 Peripheral [ Pulse Oximetry] Respiratory 33 H 33 H 31 H Rate Blood Pressure Blood Pressure 136/71 116/64 127/75 [Right Arm] O2 Sat by Pulse 96 97 97 Oximetry O2 Sat by Pulse Oximetry [ Nasal Cannula] 09/17/18 22:50 Temperature [ 36.6 C Oral] Pulse, 91 Peripheral [ Pulse Oximetry] Respiratory 30 H Rate Blood Pressure Blood Pressure 125/79 [Right Arm] O2 Sat by Pulse 92 L Oximetry O2 Sat by Pulse Oximetry [ Nasal Cannula] - Orders/Labs/Meds Orders: Active Orders 24 hr Category Date Time Status Cardiac Monitoring [RC] . DIRECTED Care 09/17/18 16:53 Active EKG Documentation Completion [RC] ASDIRECTED Care 09/17/18 19:25 Active Oxygen Therapy, ED [RC] CONTINUOUS Care 09/17/18 19:59 Active Peripheral IV Care [RC] . DIRECTED Care 09/17/18 16:50 Active Peripheral IV Care [RC] . DIRECTED Care 09/17/18 19:46 Active Nothing Per Oral Diet [DIET] Diet 09/17/18 Breakfast Active Abdomen Pelvis w Cont [CT] Stat Exams 09/17/18 19:55 Ordered Abdomen Series w Chest 1V [CR] Stat Exams 09/17/18 16:50 Taken Chest PE [Ang Chest] [CT] Stat Exams 09/17/18 19:46 Taken CULTURE URINE [RM] Stat Lab 09/17/18 16:50 Ordered UA W/MICROSCOPIC [URIN] Stat Lab 09/17/18 16:50 Ordered Nitroglycerin [Nitrostat] Med 09/17/18 19:23 Stat 0.4 mg SL ONETIME STA Sodium Chloride 0.9% [Saline Flush] Med 09/17/18 16:50 Active 10 ml FLUSH ASDIRECTED PRN Sodium Chloride 0.9% [Saline Flush] Med 09/17/18 19:46 Active 10 ml FLUSH ASDIRECTED PRN Obtain Past Medical Record [OM.PC] Urgent Oth 09/17/18 16:50 Active Peripheral IV Insertion Adult [OM.PC] Stat Oth 09/17/18 16:50 Ordered Peripheral IV Insertion Adult [OM.PC] Stat Oth 09/17/18 19:46 Ordered Resuscitation Status Stat Resus Stat 09/17/18 16:50 Ordered Medication Orders Nitroglycerin (Nitrostat) 0.4 mg SL ONETIME STA Stop: 09/18/18 19:24 Last Admin: 09/17/18 19:27 Dose: 0.4 mg Sodium Chloride (Saline Flush) 10 ml FLUSH ASDIRECTED PRN PRN Reason: Keep Vein Open Last Admin: 09/17/18 19:30 Dose: 10 ml Admin: 09/17/18 19:13 Dose: 10 ml Admin: 09/17/18 19:12 Dose: 10 ml Admin: 09/17/18 19:09 Dose: 10 ml Admin: 09/17/18 18:17 Dose: 10 ml Sodium Chloride (Saline Flush) 10 ml FLUSH ASDIRECTED PRN PRN Reason: Keep Vein Open Labs: Laboratory Tests 09/17/18 09/17/18 09/17/18 Range/Units 16:52 17:00 17:00 WBC (4.0-10.2) K/uL RBC (4.33-5.41) M/uL Hgb (13.1-16.8) g/dL Hct (39.0-49.0) % MCV (84.0-98.0) fL MCH (28.2-33.3) pg MCHC (31.7-36.0) g/dL RDW (11.2-14.1) % Plt Count (150-350) K/uL Neut % (Auto) (45.0-80.0) % Lymph % (Auto) (10.0-50.0) % [place] % (Auto) (2.0-14.0) % Eos % (Auto) (0.0-5.0) % Baso % (Auto) (0.0-2.0) % Neut # (Auto) (1.40-7.00) K/uL Lymph # (Auto) (0.50-3.50) K/uL [place] # (Auto) (0.00-1.00) K/uL Eos # (Auto) (0.00-0.50) K/uL Baso # (Auto) (0.00-0.20) K/uL PT (9.5-12.0) SEC INR APTT (21.0-31.3) SEC D-Dimer, Quantitative 1880 H (0-400) ng/mL Sodium 137 (136-145) mmol/L Potassium 4.2 (3.5-5.1) mmol/L Chloride 103 (98-107) mmol/L Carbon Dioxide 19.2 L (21.0-32.0) mmol/L BUN 17 (7-18) mg/dL Creatinine 0.65 (0.51-1.17) mg/dL Est Cr Clr Drug Dosing 110.28 mL/min Estimated GFR (MDRD) > 60 mL/min Glucose 121 H (74-106) mg/dL Lactic Acid (0.4-2.0) mmol/L Uric Acid 10.2 H (2.6-7.2) mg/dL Calcium 8.6 (8.5-10.1) mg/dL Magnesium 1.7 L (1.8-2.4) mg/dL Total Bilirubin 0.9 (0.2-1.0) mg/dL AST 41 H (15-37) U/L ALT 42 (12-78) U/L Alkaline Phosphatase 80 (46-116) IU/L Creatine Kinase 222 (26-308) U/L Creatine Kinase Index 1.3 (0.0-2.5) % CK-MB (CK-2) 2.90 (0.00-3.60) ng/mL Troponin I 0.000 (0.000-0.056) ng/mL NT-Pro-B Natriuret Pep 48 (0-125) pg/mL Total Protein 6.9 (6.4-8.2) g/dL Albumin 3.5 (3.4-5.0) g/dL Amylase 37 (25-115) U/L Lipase 375 (73-393) U/L Ethyl Alcohol (0.000-0.080) g/dL 09/17/18 09/17/18 09/17/18 Range/Units 17:05 17:05 17:15 WBC 7.0 (4.0-10.2) K/uL RBC 4.51 (4.33-5.41) M/uL Hgb 15.3 (13.1-16.8) g/dL Hct 42.1 (39.0-49.0) % MCV 93.3 (84.0-98.0) fL MCH 33.9 H (28.2-33.3) pg MCHC 36.3 H (31.7-36.0) g/dL RDW 13.9 (11.2-14.1) % Plt Count 148 L (150-350) K/uL Neut % (Auto) 68.2 (45.0-80.0) % Lymph % (Auto) 21.3 (10.0-50.0) % [place] % (Auto) 9.3 (2.0-14.0) % Eos % (Auto) 1.1 (0.0-5.0) % Baso % (Auto) 0.1 (0.0-2.0) % Neut # (Auto) 4.76 (1.40-7.00) K/uL Lymph # (Auto) 1.49 (0.50-3.50) K/uL [place] # (Auto) 0.65 (0.00-1.00) K/uL Eos # (Auto) 0.08 (0.00-0.50) K/uL Baso # (Auto) 0.01 (0.00-0.20) K/uL PT 10.1 (9.5-12.0) SEC INR 0.9 APTT 19.8 L (21.0-31.3) SEC D-Dimer, Quantitative (0-400) ng/mL Sodium (136-145) mmol/L Potassium (3.5-5.1) mmol/L Chloride (98-107) mmol/L Carbon Dioxide (21.0-32.0) mmol/L BUN (7-18) mg/dL Creatinine (0.51-1.17) mg/dL Est Cr Clr Drug Dosing mL/min Estimated GFR (MDRD) mL/min Glucose (74-106) mg/dL Lactic Acid (0.4-2.0) mmol/L Uric Acid (2.6-7.2) mg/dL Calcium (8.5-10.1) mg/dL Magnesium (1.8-2.4) mg/dL Total Bilirubin (0.2-1.0) mg/dL AST (15-37) U/L ALT (12-78) U/L Alkaline Phosphatase (46-116) IU/L Creatine Kinase (26-308) U/L Creatine Kinase Index (0.0-2.5) % CK-MB (CK-2) (0.00-3.60) ng/mL Troponin I (0.000-0.056) ng/mL NT-Pro-B Natriuret Pep (0-125) pg/mL Total Protein (6.4-8.2) g/dL Albumin (3.4-5.0) g/dL Amylase (25-115) U/L Lipase (73-393) U/L Ethyl Alcohol 0.059 (0.000-0.080) g/dL 09/17/18 Range/Units 17:15 WBC (4.0-10.2) K/uL RBC (4.33-5.41) M/uL Hgb (13.1-16.8) g/dL Hct (39.0-49.0) % MCV (84.0-98.0) fL MCH (28.2-33.3) pg MCHC (31.7-36.0) g/dL RDW (11.2-14.1) % Plt Count (150-350) K/uL Neut % (Auto) (45.0-80.0) % Lymph % (Auto) (10.0-50.0) % [place] % (Auto) (2.0-14.0) % Eos % (Auto) (0.0-5.0) % Baso % (Auto) (0.0-2.0) % Neut # (Auto) (1.40-7.00) K/uL Lymph # (Auto) (0.50-3.50) K/uL [place] # (Auto) (0.00-1.00) K/uL Eos # (Auto) (0.00-0.50) K/uL Baso # (Auto) (0.00-0.20) K/uL PT (9.5-12.0) SEC INR APTT (21.0-31.3) SEC D-Dimer, Quantitative (0-400) ng/mL Sodium (136-145) mmol/L Potassium (3.5-5.1) mmol/L Chloride (98-107) mmol/L Carbon Dioxide (21.0-32.0) mmol/L BUN (7-18) mg/dL Creatinine (0.51-1.17) mg/dL Est Cr Clr Drug Dosing mL/min Estimated GFR (MDRD) mL/min Glucose (74-106) mg/dL Lactic Acid 2.7 H (0.4-2.0) mmol/L Uric Acid (2.6-7.2) mg/dL Calcium (8.5-10.1) mg/dL Magnesium (1.8-2.4) mg/dL Total Bilirubin (0.2-1.0) mg/dL AST (15-37) U/L ALT (12-78) U/L Alkaline Phosphatase (46-116) IU/L Creatine Kinase (26-308) U/L Creatine Kinase Index (0.0-2.5) % CK-MB (CK-2) (0.00-3.60) ng/mL Troponin I (0.000-0.056) ng/mL NT-Pro-B Natriuret Pep (0-125) pg/mL Total Protein (6.4-8.2) g/dL Albumin (3.4-5.0) g/dL Amylase (25-115) U/L Lipase (73-393) U/L Ethyl Alcohol (0.000-0.080) g/dL Meds: Medications Generic Name Dose Route Start Last Admin Trade Name Freq PRN Reason Stop Dose Admin Nitroglycerin 0.4 mg 09/17/18 19:23 09/17/18 19:27 Nitrostat SL 09/18/18 19:24 0.4 mg ONETIME STA Administration Sodium Chloride 10 ml 09/17/18 16:50 09/17/18 19:30 Saline Flush FLUSH 10 ml ASDIRECTED PRN Administration Keep Vein Open Sodium Chloride 10 ml 09/17/18 19:46 Saline Flush FLUSH ASDIRECTED PRN Keep Vein Open Discontinued Medications Generic Name Dose Route Start Last Admin Trade Name Freq PRN Reason Stop Dose Admin Al Hydroxide/Mg Hydroxide 30 ml 09/17/18 18:42 09/17/18 19:09 Gi Cocktail PO 09/17/18 18:43 30 ml ONETIME ONE Administration Aspirin 243 mg 09/17/18 19:34 Aspirin CHEW 09/17/18 19:35 ONETIME ONE Aspirin 243 mg 09/17/18 19:36 09/17/18 20:05 Aspirin CHEW 09/17/18 19:37 243 mg ONETIME ONE Administration Famotidine 40 mg 09/17/18 16:50 09/17/18 17:14 Pepcid IVPUSH 09/17/18 16:51 40 mg ONETIME ONE Administration Lactated Ringer's 1,000 mls @ 999 mls/hr 09/17/18 19:33 09/17/18 19:38 Ringers, Lactated IV 09/17/18 20:33 999 mls/hr .BOLUS ONE Administration Piperacillin Sod/Tazobactam 100 mls @ 200 mls/hr 09/17/18 19:56 09/17/18 20: 14 Sod 3.375 gm/ Sodium Chloride IV 09/17/18 20:25 200 mls/hr ONETIME ONE Administration Vancomycin HCl 1.5 gm/ Sodium 500 mls @ 220 mls/hr 09/17/18 19:56 09/17/18 20 :18 Chloride IV 09/17/18 22:12 220 mls/hr ONETIME ONE Administration Iopamidol 100 ml 09/17/18 19:53 Isovue-370 (76%) IVPUSH 09/17/18 19:54 ONETIME ONE Lorazepam 1 mg 09/17/18 18:42 09/17/18 19:05 Ativan IVPUSH 09/17/18 18:43 1 mg ONETIME ONE Administration Lorazepam 1 mg 09/17/18 19:18 09/17/18 19:23 Ativan PO 09/17/18 19:19 1 mg ONETIME ONE Administration Morphine Sulfate 2 mg 09/17/18 19:24 09/17/18 19:28 Morphine IVPUSH 09/17/18 19:25 2 mg ONETIME ONE Administration Nitroglycerin 0.5 gm 09/17/18 19:23 09/17/18 20:58 Nitro-Bid 2% TOP 09/17/18 19:24 Not Given ONETIME ONE Ondansetron HCl 4 mg 09/17/18 16:50 09/17/18 17:13 Zofran IVPUSH 09/17/18 16:51 4 mg ONETIME ONE Administration Pantoprazole Sodium 40 mg 09/17/18 16:50 09/17/18 17:13 Protonix Iv IVPUSH 09/17/18 16:51 40 mg ONETIME ONE Administration Ticagrelor 180 mg 09/17/18 19:34 09/17/18 20:05 Brilinta PO 09/17/18 19:35 180 mg ONETIME ONE Administration - Radiology Interpretation Free Text/Narrative:: cardiac monitor shows heart rate in the 60s to 80s with no ectopy or arrhythmia Acute abdominal x-ray shows evidence of moderate diffuse stool with nonspecific bowel gaseous pattern with overall poor inspiratory film. Possible cardiomegaly , however no pneumothorax, pulmonary infiltrates, fluid levels, free air, ileus , obstruction, etc. Note moderate aortic valve calcification. Note status post T11 vertebral plasty and spinal fusion of T9-10 through L5. [employer] stimulator noted in pelvic region with status post cholecystectomy. Status post left hip TEP. Telephone consultation at 21:55 and 22:05 hours with the radiology department at [facility]. Preliminary verbal report of CT of the chest, abdomen, and pelvis with IV contrast shows inadequate visualization of the chest to rule out thoracic aortic aneurysm and/or PE. Note interference of evaluation of the abdominal aorta secondary to previous spinal fixation however no direct evidence of abdominal aortic aneurysm or dissection. Some small amounts free air likely secondary to perforated diverticulum per radiologist's interpretation. CT Results Date: 09/17/18 CT Results Time: 21:55 Departure - Departure Time of Disposition: 21:45 Disposition: DC/Tfer to Acute Hospital 02 Condition: Good, Fair Clinical Impression: Peptic reflux disease, Mixed anxiety and depressive disorder, Lactic acid blood increased, D-dimer, elevated, Hypomagnesemia Hypotension Qualifiers: Hypotension type: hypotension due to drug Qualified Code(s): I95.2 - Hypotension due to drugs Chest pain Qualifiers: Chest pain type: other chest pain Qualified Code(s): R07.89 - Other chest pain Hypertension Qualifiers: Hypertension type: essential hypertension Qualified Code(s): I10 - Essential ( primary) hypertension Hyperlipidemia Qualifiers: Hyperlipidemia type: unspecified Qualified Code(s): E78.5 - Hyperlipidemia, unspecified Diabetes mellitus Qualifiers: Diabetes mellitus type: type 2 Diabetes mellitus [facility] insulin use: without terminal press operator use Diabetes mellitus complication status: with neurologic complications Diabetes mellitus complication detail: with polyneuropathy Qualified Code(s): E11.42 - Type 2 diabetes mellitus with diabetic polyneuropathy COPD (chronic obstructive pulmonary disease) Qualifiers: COPD type: emphysema Emphysema type: panlobular Qualified Code(s): J43.1 - Panlobular emphysema Sleep apnea Qualifiers: Sleep apnea type: unspecified type Qualified Code(s): G47.30 - Sleep apnea, unspecified Abdominal pain Qualifiers: Abdominal location: right upper quadrant Qualified Code(s): R10.11 - Right upper quadrant pain Coronary artery disease Qualifiers: Coronary Disease-Associated Artery/Lesion type: [place] artery [place] vs. transplanted heart: [place] heart Associated angina: with unstable angina Qualified Code(s): I25.110 - Atherosclerotic heart disease of [place] coronary artery with unstable angina pectoris - Discharge Information *PRESCRIPTION DRUG MONITORING PROGRAM REVIEWED*: Not Applicable *COPY OF PRESCRIPTION DRUG MONITORING REPORT IN PATIENT PRISCILA: Not Applicable Referrals: Waleska Sanz, POMOLOGY TEACHER [Primary Care Provider] - Forms: ED Department Discharge Care Plan Goals: See plan. - Problem List & Annotations (1) Chest pain SNOMED Code(s): 15399737 Code(s): R07.9 - CHEST PAIN, UNSPECIFIED Status: Acute Priority: High Current Visit: Yes Onset Date: 09/17/18 Annotation/Comment:: Initially mostly abdominal complaints as below and as per history of present illness. During the later course of his emergency room care and shortly prior to planned admission the patient to this facility in observation status the character of his symptoms did significantly changed. He began experiencing fairly severe retrosternal chest pressure with return of his diaphoresis and nausea. In addition, note significant hypotension with systolic blood pressures in the 60s , although this may be secondary to combined IV morphine and sublingual nitroglycerin tablet. Secondary to character of symptoms suspect possible dissecting aortic aneurysm. Chest pain protocol and IV lactated Ringer's bolus was initiated with overall improved blood pressures with this therapy. Telephone consultation at 19:[address] Nolan, emergency room physician at [facility] in [place], who is in agreement with our initiation of evaluation for possible dissecting aortic aneurysm. Per her recommendations additional angiogram of the abdomen and pelvis from previously ordered angiogram of the chest with additional IV vancomycin and IV Zosyn secondary to mild lactic acid elevation. Note no leukocytosis, fever, or direct evidence of sepsis, however. [facility] will arrange air flight transfer for this patient. No other treatment recommendations given. Note that air ambulance nurse did administer 50 g of fentanyl IV prior to patient transfer. Inadequate CT scan results as above. Subsequent telephone consultation at 22:[address] Nassar, emergency room physician, informing her of the patient's clinical course, improved blood pressure, etc. and also the above inadequate CT evaluation. CTA of the chest as originally ordered will likely need to be repeated using both aortic dissection and PE protocol. Clinical exam and patient 's vital signs were stable at time of air ambulance transfer. Qualifiers: Chest pain type: other chest pain Qualified Code(s): R07.89 - Other chest pain; R07.8 - Other chest pain (2) Coronary artery disease SNOMED Code(s): 22178363 Code(s): I25.10 - ATHSCL HEART DISEASE OF [place] CORONARY ARTERY W/O ANG PCTRS Status: Chronic Priority: High Current Visit: Yes Annotation/ Comment:: Distant negative Cardiolite stress test as above with patient not having a repeat cardiac evaluation despite previous anginal type symptoms on . Cardiology consultation depending on his clinical course. Qualifiers: Coronary Disease-Associated Artery/Lesion type: [place] artery [place] vs. transplanted heart: [place] heart Associated angina: with unstable angina Qualified Code(s): I25.110 - Atherosclerotic heart disease of [place] coronary artery with unstable angina pectoris (3) Abdominal pain SNOMED Code(s): 97966222 Code(s): R10.9 - UNSPECIFIED ABDOMINAL PAIN Status: Acute Priority: High Current Visit: Yes Onset Date: 09/17/18 Annotation/Comment:: Patient initially with mostly right upper quadrant pain initially with radiation to the chest as per history of present illness. Symptoms initially improved with high- dose IV Pepcid, IV Protonix, and green lizard. Note status post laparoscopic cholecystectomy. LFTs elevation likely secondary to fatty liver and/or current alcohol abuse. Note CT results as above with possible perforated diverticulum. IV antibiotics already given as above. Further workup depending on his clinical course. Qualifiers: Abdominal location: right upper quadrant Qualified Code(s): R10.11 - Right upper quadrant pain (4) Elevated d-dimer SNOMED Code(s): 460615428 Code(s): R79.89 - OTHER SPECIFIED ABNORMAL FINDINGS OF BLOOD CHEMISTRY Status: Acute Priority: High Current Visit: Yes Onset Date: 09/17/18 Annotation/Comment:: Elevated d-dimer results and for she received after his CTA of the chest, abdomen, and pelvis were conducted. No direct clinical evidence of DVT, however. Above study may be inadequate to determine PE secondary to initial suspicion of aortic dissection. (5) Hypotension SNOMED Code(s): 64503433 Code(s): I95.9 - HYPOTENSION, UNSPECIFIED Status: Acute Priority: High Current Visit: Yes Onset Date: 09/17/18 Annotation/Comment:: As above. Improved prior to transfer and overall good response to 1 L IV bolus of lactated Ringer's.. Qualifiers: Hypotension type: hypotension due to drug Qualified Code(s): I95.2 - Hypotension due to drugs (6) Lactic acid blood increased SNOMED Code(s): 6909889 Code(s): R79.89 - OTHER SPECIFIED ABNORMAL FINDINGS OF BLOOD CHEMISTRY Status: Chronic Priority: Medium Current Visit: Yes Annotation/Comment:: As above. (7) COPD (chronic obstructive pulmonary disease) SNOMED Code(s): 50551811 Code(s): J44.9 - CHRONIC OBSTRUCTIVE PULMONARY DISEASE, UNSPECIFIED Status : Chronic Priority: Medium Current Visit: Yes Annotation/Comment:: No Recent fever, bronchitic-type symptoms, etc. Qualifiers: COPD type: emphysema Emphysema type: panlobular Qualified Code(s): J43.1 - Panlobular emphysema (8) Diabetes mellitus SNOMED Code(s): 14299946 Code(s): E11.9 - TYPE 2 DIABETES MELLITUS WITHOUT COMPLICATIONS Status: Chronic Priority: Medium Current Visit: Yes Annotation/Comment:: Note currently diet controlled with metformin primarily use for weight loss per patient's history? Qualifiers: Diabetes mellitus type: type 2 Diabetes mellitus [facility] insulin use: without [facility] use Diabetes mellitus complication status: with neurologic complications Diabetes mellitus complication detail: with polyneuropathy Qualified Code(s): E11.42 - Type 2 diabetes mellitus with diabetic polyneuropathy (9) Hypertension SNOMED Code(s): 87312689 Code(s): I10 - ESSENTIAL (PRIMARY) HYPERTENSION Status: Chronic Priority : Medium Current Visit: Yes Annotation/Comment:: Blood pressures initially under good control per patient and his . Note hypotension as above. Qualifiers: Hypertension type: essential hypertension Qualified Code(s): I10 - Essential (primary) hypertension (10) Mixed anxiety and depressive disorder SNOMED Code(s): 398365028 Code(s): F41.8 - OTHER SPECIFIED ANXIETY DISORDERS Status: Chronic Priority: Medium Current Visit: Yes Annotation/Comment:: Stable by history, although he has been drinking more alcohol recently especially during the last couple of weeks. He is no longer attending AA. Note history of alcohol abuse. Continue to observe closely by his regular providers, etc. (11) Peptic reflux disease SNOMED Code(s): 650653358 Code(s): K21.9 - GASTRO-ESOPHAGEAL REFLUX DISEASE WITHOUT ESOPHAGITIS Status: Chronic Priority: Medium Current Visit: Yes Annotation/Comment:: Increased symptoms during the last few days as per history of present illness. Initial improvement of his symptoms with IV Protonix and IV Pepcid as above. Note positive Hemoccult as above with brown stool and no direct evidence of significant GI bleed. (12) Osteoarthritis SNOMED Code(s): 705904230 Code(s): M19.90 - UNSPECIFIED OSTEOARTHRITIS, UNSPECIFIED SITE Status: Chronic Priority: High Current Visit: No Annotation/Comment:: Stable by history including chronic low back pain after spinal fusion as above. Qualifiers: Osteoarthritis location: multiple joints Osteoarthritis type: primary Qualified Code(s): M15.0 - Primary generalized (osteo)arthritis (13) Hypomagnesemia SNOMED Code(s): 036180108 Code(s): E83.42 - HYPOMAGNESEMIA Status: Acute Priority: Medium Current Visit: Yes Onset Date: 09/17/18 Annotation/Comment:: Consider magnesium supplementation, however note hypotension in the emergency room. - Problem List Review Problem List Initiated/Reviewed/Updated: Yes - My Orders Last 24 Hours: My Active Orders 09/17/18 16:50 Peripheral IV Care [RC] . DIRECTED Abdomen Series w Chest 1V [CR] Stat CULTURE URINE [RM] Stat UA W/MICROSCOPIC [URIN] Stat Sodium Chloride 0.9% [Saline Flush] 10 ml FLUSH ASDIRECTED PRN Obtain Past Medical Record [OM.PC] Urgent Peripheral IV Insertion Adult [OM.PC] Stat Resuscitation Status Stat 09/17/18 16:53 Cardiac Monitoring [RC] . DIRECTED 09/17/18 19:23 Nitroglycerin [Nitrostat] 0.4 mg SL ONETIME STA 09/17/18 19:25 EKG Documentation Completion [RC] ASDIRECTED 09/17/18 19:46 Peripheral IV Care [RC] . DIRECTED Chest PE [Ang Chest] [CT] Stat Sodium Chloride 0.9% [Saline Flush] 10 ml FLUSH ASDIRECTED PRN Peripheral IV Insertion Adult [OM.PC] Stat 09/17/18 19:55 Abdomen Pelvis w Cont [CT] Stat 09/17/18 19:59 Oxygen Therapy, ED [RC] CONTINUOUS 09/17/18 Breakfast Nothing Per Oral Diet [DIET] - Assessment/Plan Last 24 Hours: My Active Orders 09/17/18 16:50 Peripheral IV Care [RC] . DIRECTED Abdomen Series w Chest 1V [CR] Stat CULTURE URINE [RM] Stat UA W/MICROSCOPIC [URIN] Stat Sodium Chloride 0.9% [Saline Flush] 10 ml FLUSH ASDIRECTED PRN Obtain Past Medical Record [OM.PC] Urgent Peripheral IV Insertion Adult [OM.PC] Stat Resuscitation Status Stat 09/17/18 16:53 Cardiac Monitoring [RC] . DIRECTED 09/17/18 19:23 Nitroglycerin [Nitrostat] 0.4 mg SL ONETIME STA 09/17/18 19:25 EKG Documentation Completion [RC] ASDIRECTED 09/17/18 19:46 Peripheral IV Care [RC] . DIRECTED Chest PE [Ang Chest] [CT] Stat Sodium Chloride 0.9% [Saline Flush] 10 ml FLUSH ASDIRECTED PRN Peripheral IV Insertion Adult [OM.PC] Stat 09/17/18 19:55 Abdomen Pelvis w Cont [CT] Stat 09/17/18 19:59 Oxygen Therapy, ED [RC] CONTINUOUS 09/17/18 Breakfast Nothing Per Oral Diet [DIET] Assessment:: As above Plan: As above. Extensive precautions were given to the patient and his , who are in agreement with the treatment plan. Air flight transfer as above.
[2018-09-17] MEDS ORDERED: Ondansetron 4 MG/2 ML SDV IVPUSH ONE (16:50)
[2018-09-17] MEDS ORDERED: Pantoprazole 40 MG Vial IVPUSH ONE (16:50)
[2018-09-17] MEDS ORDERED: Famotidine 20 MG/2 ML SDV IVPUSH ONE (16:50)
[2018-09-17 17:35] LABS: CHLORIDE,CL 103 mmol/L (98-107); SODIUM,NA 137 mmol/L (136-145)
[2018-09-17] MEDS: Sodium Chloride 0.9% 10 ML Syringe FLUSH PRN ×5 (18:17→19:30)
[2018-09-17] MEDS ORDERED: LORazepam 2 MG/ML SDV IVPUSH ONE (18:42)
[2018-09-17] MEDS ORDERED: GI Cocktail Oral Solution 30 ML PO ONE (18:42)
[2018-09-17] MEDS ORDERED: LORazepam 1 MG Tab PO ONE (19:18)
[2018-09-17] MEDS ORDERED: Nitroglycerin 0.4 MG Tab.SL SL STA (19:23)
[2018-09-17] MEDS ORDERED: Morphine 2 MG/ML Syringe IVPUSH ONE (19:24)
[2018-09-17] MEDS: Nitroglycerin 2% Oint 1 GM UD Packet TOP ONE ×2 (19:30→20:58)
[2018-09-17] MEDS ORDERED: Lactated Ringers 1,000 ML IV ONE (19:33)
[2018-09-17] MEDS ORDERED: Aspirin 81 MG Tab.Chew CHEW ONE ×2 (19:34→19:36)
[2018-09-17] MEDS ORDERED: Ticagrelor 90 MG Tab PO ONE (19:34)
[2018-09-17] MEDS ORDERED: Sodium Chloride 0.9% 10 ML Syringe FLUSH PRN (19:46)
[2018-09-17] MEDS: Iopamidol 755 Mg/ML 100 ML Bottle IVPUSH ONE ×2 (19:53→20:23)
[2018-09-17] MEDS ORDERED: Piperacillin/Tazobactam 3.375 GM in Sodium Chloride 0.9% 100 ML IV ONE (19:56)
[2018-09-17] MEDS ORDERED: Vancomycin 1.5 GM in Sodium Chloride 0.9% 500 ML IV ONE (19:56)
[2018-09-17 22:50] VITALS: BP 125/79; PULSE 91
== END 2018-09-17 21:50 ==
LOC: LL.ED 16:45 → LL.MS 19:24 → UNDOADMOB 19:24 → LL.ED 21:50
DX: K21.9 Gastro-esophageal reflux disease without esophagitis (principal); I95.2 Hypotension due to drugs; R07.89 Other chest pain; E78.5 Hyperlipidemia, unspecified; F41.8 Other specified anxiety disorders; J43.1 Panlobular emphysema; R79.1 Abnormal coagulation profile; E83.42 Hypomagnesemia; I10 Essential (primary) hypertension; E11.42 Type 2 diabetes mellitus with diabetic polyneuropathy; G47.30 Sleep apnea, unspecified; I25.110 Atherosclerotic heart disease of native coronary artery with unstable angina pectoris; R79.89 Other specified abnormal findings of blood chemistry; M19.90 Unspecified osteoarthritis, unspecified site; Z79.84 Long term (current) use of oral hypoglycemic drugs; Z79.899 Other long term (current) drug therapy; Z87.891 Personal history of nicotine dependence
CPT/HCPCS: 36415; 74022; 74178; 80053; 82150; 82272; 82550; 82553; 83605; 83690; 83735; 83880; 84484; 84550; 85025; 85379; 85610; 85730; 93005; 96361; 96365; 96367; 96375; 99285; A9270; C9113; G0480; J2060; J2270; J2405; J2543; J3370; J3490; J7040; J7050; J7120; Q9967; 71275; 93010

== ENCOUNTER 2019-09-02 16:36 | Emergency (ER) | payer MEDICARE, BC ==
[2019-09-02] MEDS ORDERED: HYDROmorphone 0.5 MG/0.5 ML Syringe IVPUSH ONE ×2 (17:22→20:59)
[2019-09-02] MEDS: Sodium Chloride 0.9% 10 ML Syringe FLUSH PRN ×2 (17:27→21:06)
--- NOTE | 2019-09-02 17:46 | EDM.PDOC ---
ED HPI GENERAL MEDICAL PROBLEM - General Chief Complaint: Cardiovascular Problem Stated Complaint: chest pain Time Seen by Provider: 09/02/19 16:55 Source of Information: Reports: Patient History Limitations: Reports: No Limitations - History of Present Illness INITIAL COMMENTS - FREE TEXT/NARRATIVE: Patient comes to ER with complaint of right lower chest pain. He says pain has been present for 6 months but suddenly worsened in intensity today. Also says that he has been seen for this pain and has had testing, including US studies (has had GB removed), CT, and endoscopy. On endoscopy he was noted to have some abnormalities which led to having his "old" stomach and part of Duodenum removed at [facility] last Monday--he was just discharged from their facility today. He has noted that the pain worsened with eating too much since he first noticed it. Pain does not radiate anywhere. Weight overall stable/continuously goes up and down about "10 pounds". Pain is steady overall otherwise. Also reports intermittent sensation of mild SOB/lightheadedness but that too has been going on for quite awhile and has been reported to his primary provider. Patient and say that patient's O2 sats were in 80s during hospitalization and that he was kept on O2 via NC. They do not recall seeing O2 sats in 90s on room air at time of discharge. Patient says he has been easily tired doing anything at home for several months, and gets winded easily with activity. Not on home O2. Sees Danilo at [facility] locally. Denies any other acute changes. Gastric Bypass performed 2006 Right Lower Chest Pain Score (Numeric/FACES): 4 - Related Data Allergies Allergy/AdvReac Type Severity Reaction Status Date / Time morphine Allergy Severe Hypotension Verified 09/02/19 18:42 aspirin Allergy Other Verified 09/17/18 17:06 Home Meds: Home Meds DULoxetine [Cymbalta] 30 mg PO DAILY 08/28/14 [History] Ferrous Sulfate 325 mg PO BIDMEALS 08/28/14 [History] Folic Acid 1 mg PO DAILY 08/28/14 [History] Multivitamins [Tab-A-Carrie] 1 tab PO DAILY 02/01/16 [History] Tamsulosin [Flomax] 0.4 mg PO BEDTIME 02/01/16 [History] Metoprolol Tartrate [Lopressor] 25 mg PO BID 11/03/16 [History] Cyanocobalamin (Vitamin B-12) [B-12] 1,000 mcg PO DAILY 01/02/17 [History] Docusate Sodium/Sennosides [Senna Plus] 1 tab PO BID PRN 01/02/17 [History] Acetaminophen [Tylenol Extra Strength] 1,000 mg PO Q8H PRN 09/02/19 [History] Calcium Phosphate Trib/Vit D3 [Calcium + Vitamin D3 Gummies] 2 tab PO DAILY 09/02/19 [History] Cyclobenzaprine [Flexeril] 10 mg PO Q8H PRN 09/02/19 [History] Magnesium Chloride [Mag-64] 64 mg PO DAILY 09/02/19 [History] Miconazole [Miconazole 2% Crm] 1 applic TOP BID PRN 09/02/19 [History] Pantoprazole Sodium [Protonix] 40 mg PO DAILY 09/02/19 [History] Rosuvastatin [Crestor] 20 mg PO DAILY 09/02/19 [History] Thiamine HCl [Vitamin B-1] 100 mg PO DAILY 09/02/19 [History] hydrOXYzine Pamoate [Vistaril] 50 mg PO BEDTIME PRN 09/02/19 [History] oxyCODONE 5 mg PO Q4H PRN 09/02/19 [History] Past Medical History HEENT History: Reports: Hard of Hearing, Impaired Vision. Denies: Allergic Rhinitis, Cataract, Glaucoma, Macular Degeneration, Otitis Media, Retinal Detachment Other HEENT History: Reading glasses despite previous LASIK surgery, mild borderline presbycusis with no therapy. Floaters. Cardiovascular History: Reports: Afib, Arrhythmia, CAD, Heart Murmur, High Cholesterol, Hypertension, Other (See Below). Denies: Aneurysm, Blood Clots/VTE/DVT, Cardiomyopathy, Heart Failure, SD, PVD, Syncope Other Cardiovascular History: Atrial fibrillation versus PSVT with status post ablation as below, incomplete right bundle branch block, dyslipidemia, hypertensive cardiomegaly, mild diffuse valvular disease, PACs, history of d- dimer elevation. Respiratory History: Reports: Bronchitis, Recurrent, COPD, Intubation, Previous, Pneumonia, Recurrent, Sleep Apnea, Other (See Below). Denies: Asthma, In tubation, Difficult, PE, Pneumothorax, Pulmonary Fibrosis, TB Other Respiratory History: Restless leg syndrome. Patient has been compliant with his CPAP. Gastrointestinal History: Reports: Cholelithiasis, Chronic Diarrhea, Colon Polyp, Diverticulosis, Fecal Incontinence, Gastritis, GERD, Hemorrhoids, Hiatal Hernia, PUD, Other (See Below). Denies: Bowel Obstruction, Celiac Disease, Chronic Constipation, GI Bleed, Hepatitis, Inflammatory Bowel Disease, Irritable Bowel Syndrome, Jaundice, Pancreatitis Other Gastrointestinal History: recurrent rectal fissures/fistulas, Gilbert's syndrome, mild colitis, gastritis, esophagitis, and duodenitis; hyperplastic colonic polyp at 30 cm on 03/12/2001, fatty liver Genitourinary History: Reports: BPH. Denies: Acute Renal Failure, Chronic Renal Insuffiency, Renal Calculus, STD, Urinary Incontinence, UTI, Recurrent Musculoskeletal History: Reports: Arthritis, Back Pain, Chronic, Fracture, Gout, Neck Pain, Chronic, Osteoarthritis, Other (See Below). Denies: Amputation, Osteoporosis, RA, SLE Other Musculoskeletal History: Left wrist fracture on 08/29/09 with fixation as below, right thumb fracture in about 1999 with surgery as below, vertebral body compression fractures of T5, T7, and T8-T11 with kyphoscoliosis. Neurological History: Reports: Neuropathy, Diabetic, Neuropathy, Peripheral, Other (See Below). Denies: Cerebral Aneurysms, Concussion, CVA, Headaches, Chronic, Head Trauma, Migraines, MS, Parkinson's, Seizure, TIA Other Neuro History: No history of DTs or seizures from alcohol use, mild cerebrovascular disease by CT scan of the head as below Psychiatric History: Reports: Addiction, Anxiety, Depression, Psych Hospitalization(s), Other (See Below). Denies: Abuse, Victim of, ADD, ADHD, Hallucinations, PTSD, Suicide Attempt, Suicidal Ideation Other Psychiatric History: Alcohol abuse with previous history of alcohol treatment including inpatient detoxification in January 2016 through February 2015 for 2 weeks, previous tobacco and and chronic narcotic use, chronic insomnia Endocrine/Metabolic History: Reports: Diabetes, Type II, Other (See Below). Den ies: Diabetes, Type I, Diabetes Mellitus, Type 3c, Hypothyroidism, IDDM, Osteopenia, Osteoporosis Other Endocrine/Metabolic History: Diabetes mellitus-diet controlled with pre vious history of occasional hypoglycemia and current medication program for weight loss Hematologic History: Reports: Anemia, B12 Deficiency, Blood Transfusion(s), Folic Acid, Iron Deficiency, Polycythemia, Other (See Below) Other Hematologic History: Transfusions with lumbar surgery as below. Immunologic History: Reports: None. Denies: AIDS, HIV, SLE Oncologic (Cancer) History: Reports: None. Denies: Basal Cell Carcinoma, Bladder, Colon, Hodgkin's Lymphoma, Leukemia, Lymphoma, Malignant Melanoma, Non- Hodgkin's Lymphoma, Prostate, Squamous Cell Carcinoma Dermatologic History: Reports: None. Denies: Eczema, Psoriasis - Infectious Disease History Infectious Disease History: Reports: Chicken Pox, Measles, Mumps. Denies: C- Difficile, Meningitis, Mononucleosis, MRSA, Pertussis (Whooping Cough), Rheumatic Fever, Rubella, Scarlet Fever, Shingles, TB, VRE - Past Surgical History Head Surgeries/Procedures: Reports: None HEENT Surgical History: Reports: Eye Surgery, LASIK, Oral Surgery, Other (See Below). Denies: Adenoidectomy, Cataract Surgery, Laser Surgery, Myringotomy w Tube(s), Naso-Sinus Surgery, Tonsillectomy Other HEENT Surgeries/Procedures: LASIK bilaterally on 12/08/1999. Bilateral upper blepharoplasty and about 2013. Complete teeth traction uppers with multiple lower tooth extractions including lower dental implants and previous partial dentures Cardiovascular Surgical History: Reports: Cardiac Ablation, Other (See Below). Denies: Varicose Other Cardiovascular Surgeries/Procedures: Cardiac ablation in November 2014 for atrial fibrillation. Respiratory Surgical History: Reports: None. Denies: Thoracentesis GI Surgical History: Reports: Bariatric Procedure, Cholecystectomy, Colonoscopy, EGD, Polypectomy, Other (See Below). Denies: Appendectomy, Hernia, Inguinal, Hernia Repair/Other Other GI Surgeries/Procedures: Last colonoscopy on 07/19/12 with previous EGD and colonoscopy on 03/12/2001. Gastric bypass in 2005. Perirectal fistulectomy with concurrent hemorrhoidectomy on 02/11/1999 with repeat surgery in November 2015. Polypectomy at 30 cm on 03/12/2001. Laparoscopic cholecystectomy on 08/28/14. Surgery to remove stomach/duodenum 08/25 Male Surgical History: Reports: Circumcision, Vasectomy, Other (See Below). Denies: TURP-Transurethral Resection of Prostate Other Male Surgeries/Procedures: Circumcision as an . Vasectomy in about 1978. Endocrine Surgical History: Reports: None. Denies: Thyroid Biopsy Neurological Surgical History: Reports: Laminectomy, Lumbar Spine, Spinal Fusion, Thoracic Spine, Other (See Below) Other Neurological Surgeries/Procedures: T11 vertebroplasty. Spinal fusion from T9-L5 in December 2016. [employer] electrical implant on 09/19/17 or treatment of stool incontinence. Musculoskeletal Surgical History: Reports: Carpal Tunnel, Hip Replacement, Knee Replacement, ORIF, Other (See Below). Denies: Arthroscopic Procedure, Ganglion Cyst, Shoulder Surgery Other Musculoskeletal Surgeries/Procedures:: Left wrist ORIF secondary to fracture in August 2009. Excision of a neuroma from digit #2 of the left foot. Left hip TEP. Carpal tunnel release on 12/21/1999 with left carpal tunnel release in January 2000. Partial left knee arthroplasty in February 2011 with a right partial knee arthroplasty in 2013. Right thumb grafting and pinning in 1999. Oncologic Surgical History: Reports: None Dermatological Surgical History: Reports: None - Past Imaging History Past Imaging History: Reports: Cardiac Echo (Last on 11/18/14.), CAT Scan (CT of the LS spine on 12/12/16, 10/21/16, and 02/01/16. CT of the head, C-spine, and abdomen and pelvis secondary to trauma on 08/29/09. CT of the abdomen and pelvis on 07/15/06.), MRI (MRI of the lumbar spine on 08/22/16 and 09/07/15. MRI of the left knee on 12/01/10.), Sleep Study (09/25/09), Stress Testing (Cardiolite stress test on 11/20/14 with ejection fraction of 57% with previous evaluation on 12/27/01), Ultrasound (Gallbladder ultrasound on 08/27/14), Other (See Below) (EMGs and nerve conduction studies of the upper extremities on 10/14/1999. Electrolytes and renal pheresis on 11/10/1999.) Social & Family History - Family History HEENT: Reports: Cataract, Macular Degeneration, Other (See Below). Denies: Glaucoma, Retinal Detachment Other HEENT Family History: Mother with macular degeneration. Father with cataracts. Cardiac: Reports: Blood Clots/VTE/DVT, Bypass, CAD, Heart Failure, Heart Murmur, Heart Valve Replacement, High Cholesterol, Hypertension, SD, Other (See Below). Denies: Afib, Aneurysm, Arrhythmia, PVD/COD, Syncope Other Cardiac Family History: Mother with three-vessel CABG at age 73 with CHF, valvular surgery, and possible previous SD, hypertension in mother and 2 brothers, brother with hyperlipidemia, mother with history of DVT in the legs in her 60s Respiratory: Reports: Sleep Apnea, Other (See Below). Denies: Asthma, COPD, PE, Pneumothorax Other Respiratory Family Hisory: Sister with sleep apnea. GI: Reports: Cholelithiasis, Other (See Below). Denies: Celiac Disease, Colon Polyps, GERD, GI bleed, Inflammatory Bowel Disease, Irritable Bowel Syndrome, Pancreatitis Other GI Family History: Mother with cholelithiasis : Reports: None. Denies: Renal Calculus, Renal Disease/Insufficiency OBGYN: Reports: None. Denies: Endometriosis, Recurrent Spontaneous Musculoskeletal: Reports: Arthritis, Gout, Osteoarthritis, Osteoporosis, Other (See Below). Denies: RA, SLE Other Musculoskeletal Family History: Maternal aunt with osteoarthritis, brother with gout Neurological: Reports: Alzheimers Disease, CVA, Dementia, Other (See Below). Denies: Cerebral Aneurysms, Migraines, Parkinson's, Seizure, TIA Other Neurological Family History: Mother with CVA in her 70s and history of Alzheimer's disease Psychiatric: Reports: Anxiety, Depression, Psych Hospitalization(s), Suicide Attempt, Other (See Below). Denies: Abuse, Victim of, ADD, ADHD Other Psychiatric Family History: Father and sister with history of alcohol abuse and anxiety depression which did require alcohol treatment and hospitalizations, father with history of suicide attempt, Endocrine/Metabolic: Reports: Diabetes, type II, Other (See Below). Denies: Diabetes, Type I, Diabetes Mellitus, Type 3c, Hypothyroidism, IDDM Other Endocrine/Metabolic Family History: Borderline diabetes mellitus in father Hematologic: Reports: None. Denies: Anemia, SLE Immunologic: Reports: None. Denies: AIDS, HIV, SLE Dermatologic: Reports: None. Denies: Eczema, Psoriasis Oncologic: Reports: Breast, Lung, Other (See Below). Denies: Colon, Hodgkin's Lymphoma, Leukemia, Lymphoma, Non-Hodgkin's Lymphoma, Prostate, Skin Other Oncologic Family History: Paternal aunt with lung cancer fatal in her 60s with limited previous tobacco use, paternal cousin with lung cancer at age 56 likely secondary to tobacco use, sister with breast cancer in her 50s - Tobacco Use Smoking Status *Q: Former Smoker (quit 20 years ago) - Caffeine Use Caffeine Use: Reports: Coffee (1 cup per day), Soda (6 sodas per day). Denies: Energy Drinks, Tea - Alcohol Use Alcohol Use History: Yes - Living Situation & Occupation Living situation: Reports: (1967, 5 children), with Family () Occupation: Retired (Retired [employer] at age 65.) ED ROS GENERAL - Review of Systems Review Of Systems: Comprehensive ROS is negative, except as noted in HPI. ED EXAM, GENERAL - Physical Exam Exam: See Below Exam Limited By: No Limitations General Appearance: Alert, No Apparent Distress, Obese Eye Exam: Bilateral Eye: EOMI, PERRL Ears: Hearing Grossly Normal Nose: No: Nasal Deformity, Nasal Swelling, Nasal Drainage Throat/Mouth: Normal Lips, Normal Voice, No Airway Compromise Head: Atraumatic, Normocephalic Neck: Normal Inspection, Supple, Non-Tender, Full Range of Motion Respiratory/Chest: No Respiratory Distress, Lungs Clear, Normal Breath Sounds, No Accessory Muscle Use Cardiovascular: No Murmur, Tachycardia GI/Abdominal: Abnormal Bowel Sounds (diminished), Other (midline incision from recent surgery. Tender over entire abdomen with palpation. Patient says not any more tender than it was this morning during surgical rounds. ) (Male) Exam: Deferred Rectal (Males) Exam: Deferred Back Exam: No: Muscle Spasm Extremities: Non-Tender, Normal Capillary Refill Neurological: Alert, Oriented, Normal Cognition, Other (equal tone/strength) Psychiatric: Normal Affect, Normal Mood Skin Exam: Warm, Dry, Intact, Normal Color EKG INTERPRETATION EKG Date: 09/02/19 Time: 16:36 Rhythm: Other (sinus tachycardia) Rate (Beats/Min): 121 Wilbur: Normal P-Wave: Present QRS: Normal ST-T: Normal QT: Normal Course - Vital Signs Last Recorded V/S: Last Vital Signs Temp 38.3 C H 09/02/19 19:45 Pulse 122 H 09/02/19 19:45 Resp 15 09/02/19 19:45 BP 122/94 H 09/02/19 19:45 Pulse Ox 94 L 09/02/19 19:45 - Orders/Labs/Meds Orders: Active Orders 24 hr Category Date Time Status EKG Documentation Completion [RC] ASDIRECTED Care 09/02/19 17:22 Active Abdomen 1V Upright [CR] Stat Exams 09/02/19 17:22 Taken Chest 1V Frontal [CR] Stat Exams 09/02/19 17:21 Taken PE Chest [Ang Chest] [CT] Stat Exams 09/02/19 18:00 Taken Sodium Chloride 0.9% [Normal Saline] 500 ml Med 09/02/19 18:15 Active IV .BOLUS Sodium Chloride 0.9% [Saline Flush] Med 09/02/19 17:22 Active 10 ml FLUSH ASDIRECTED PRN Saline Lock Insert [OM.PC] Routine Oth 09/02/19 17:21 Ordered Medication Orders Sodium Chloride (Normal Saline) 500 mls @ 500 mls/hr IV .BOLUS SOFI Sodium Chloride (Saline Flush) 10 ml FLUSH ASDIRECTED PRN PRN Reason: Keep Vein Open Last Admin: 09/02/19 17:27 Dose: 10 ml Documented by: AUGUSTA Labs: Laboratory Tests 09/02/19 09/02/19 09/02/19 Range/Units 17:25 17:25 17:25 WBC 8.2 (4.0-10.2) K/uL RBC 3.76 L (4.33-5.41) M/uL Hgb 12.6 L D (13.1-16.8) g/dL Hct 37.0 L (39.0-49.0) % MCV 98.4 H D (84.0-98.0) fL MCH 33.5 H (28.2-33.3) pg MCHC 34.1 (31.7-36.0) g/dL RDW 12.3 (11.2-14.1) % Plt Count 146 L (150-350) K/uL Neut % (Auto) 84.3 H (45.0-80.0) % Lymph % (Auto) 4.6 L (10.0-50.0) % Brown % (Auto) 10.5 (2.0-14.0) % Eos % (Auto) 0.4 (0.0-5.0) % Baso % (Auto) 0.2 (0.0-2.0) % Neut # (Auto) 6.91 (1.40-7.00) K/uL Lymph # (Auto) 0.38 L (0.50-3.50) K/uL Brown # (Auto) 0.86 (0.00-1.00) K/uL Eos # (Auto) 0.03 (0.00-0.50) K/uL Baso # (Auto) 0.02 (0.00-0.20) K/uL D-Dimer, Quantitative 2980 H (0-400) ng/mL Sodium 136 (136-145) mmol/L Potassium 4.0 (3.5-5.1) mmol/L Chloride 98 (98-107) mmol/L Carbon Dioxide 27.3 (21.0-32.0) mmol/L BUN 9 (7-18) mg/dL Creatinine 0.80 (0.51-1.17) mg/dL Est Cr Clr Drug Dosing 85.50 mL/min Estimated GFR (MDRD) > 60 mL/min Glucose 113 H (74-106) mg/dL Lactic Acid (0.4-2.0) mmol/L Calcium 8.5 (8.5-10.1) mg/dL Magnesium 2.1 (1.8-2.4) mg/dL Total Bilirubin 2.2 H (0.2-1.0) mg/dL AST 15 (15-37) U/L ALT 19 (12-78) U/L Alkaline Phosphatase 78 (46-116) IU/L Troponin I 0.000 (0.000-0.056) ng/mL NT-Pro-B Natriuret Pep 61 (0-125) pg/mL Total Protein 6.7 (6.4-8.2) g/dL Albumin 2.8 L (3.4-5.0) g/dL Specimen Type Urine Color Urine Appearance Urine pH (5.0-9.0) Ur Specific [place] (1.005-1.030) Urine Protein (NEGATIVE) mg/dL Urine Glucose (UA) (NEGATIVE) mg/dL Urine Ketones (NEGATIVE) mg/dL Urine Occult Blood (NEGATIVE) Urine Nitrite (NEGATIVE) Urine Bilirubin (NEGATIVE) Urine Urobilinogen (0.2-1.0) E.U./dL Ur Leukocyte Esterase (NEGATIVE) Urine RBC /HPF Urine WBC /HPF Urine Bacteria (NONE TO FEW) /HPF 09/02/19 09/02/19 Range/Units 17:25 18:24 WBC (4.0-10.2) K/uL RBC (4.33-5.41) M/uL Hgb (13.1-16.8) g/dL Hct (39.0-49.0) % MCV (84.0-98.0) fL MCH (28.2-33.3) pg MCHC (31.7-36.0) g/dL RDW (11.2-14.1) % Plt Count (150-350) K/uL Neut % (Auto) (45.0-80.0) % Lymph % (Auto) (10.0-50.0) % Brown % (Auto) (2.0-14.0) % Eos % (Auto) (0.0-5.0) % Baso % (Auto) (0.0-2.0) % Neut # (Auto) (1.40-7.00) K/uL Lymph # (Auto) (0.50-3.50) K/uL Brown # (Auto) (0.00-1.00) K/uL Eos # (Auto) (0.00-0.50) K/uL Baso # (Auto) (0.00-0.20) K/uL D-Dimer, Quantitative (0-400) ng/mL Sodium (136-145) mmol/L Potassium (3.5-5.1) mmol/L Chloride (98-107) mmol/L Carbon Dioxide (21.0-32.0) mmol/L BUN (7-18) mg/dL Creatinine (0.51-1.17) mg/dL Est Cr Clr Drug Dosing mL/min Estimated GFR (MDRD) mL/min Glucose (74-106) mg/dL Lactic Acid 1.5 (0.4-2.0) mmol/L Calcium (8.5-10.1) mg/dL Magnesium (1.8-2.4) mg/dL Total Bilirubin (0.2-1.0) mg/dL AST (15-37) U/L ALT (12-78) U/L Alkaline Phosphatase (46-116) IU/L Troponin I (0.000-0.056) ng/mL NT-Pro-B Natriuret Pep (0-125) pg/mL Total Protein (6.4-8.2) g/dL Albumin (3.4-5.0) g/dL Specimen Type Urinblad Urine Color Yellow Urine Appearance Clear Urine pH 5.5 (5.0-9.0) Ur Specific [place] >= 1.030 (1.005-1.030) Urine Protein 100 H (NEGATIVE) mg/dL Urine Glucose (UA) Negative (NEGATIVE) mg/dL Urine Ketones >=160 H (NEGATIVE) mg/dL Urine Occult Blood Negative (NEGATIVE) Urine Nitrite Negative (NEGATIVE) Urine Bilirubin Moderate H (NEGATIVE) Urine Urobilinogen 0.2 (0.2-1.0) E.U./dL Ur Leukocyte Esterase Negative (NEGATIVE) Urine RBC Not seen /HPF Urine WBC Not seen /HPF Urine Bacteria Not seen (NONE TO FEW) /HPF Meds: Medications Generic Name Dose Route Start Last Admin Trade Name Freq PRN Reason Stop Dose Admin Sodium Chloride 500 mls @ 500 mls/hr 09/02/19 18:15 Normal Saline IV .BOLUS SOFI Sodium Chloride 10 ml 09/02/19 17:22 09/02/19 17:27 Saline Flush FLUSH 10 ml ASDIRECTED PRN Administration Keep Vein Open Discontinued Medications Generic Name Dose Route Start Last Admin Trade Name Freq PRN Reason Stop Dose Admin Hydromorphone HCl 0.5 mg 09/02/19 17:22 09/02/19 17:27 Dilaudid IVPUSH 09/02/19 17:23 0.5 mg ONETIME ONE Administration Iopamidol 100 ml 09/02/19 18:25 Isovue-370 (76%) IVPUSH 09/02/19 18:26 ONETIME STA - Radiology Interpretation Free Text/Narrative:: CT performed that showed no evidence of PEs. Has atelectasis at bases. No obvious pneumonia. Air under diaphragm which is expected given the recent surgery. No changes noted in right lower lung area that can be linked with patient's ongoing pain complaint. - Re-Assessments/Exams Free Text/Narrative Re-Assessment/Exam: 09/02/19 21:00 Elevated DDimer. Normal WBC. UA shows elevated concentration, ketones. Troponin/Lactic/proBNP normal CT of chest performed to r/o PE No noted PE per Radiology. No obvious pneumonia. No identifiable cause for increased right lower chest pain complaint. Dilaudid improved pain complaint. Patient noted to continue to be tachycardic even after supplemental O2 started. O2 via NC increased O2 sats from 86-88% up to 96%. Fluid bolus given and still no change noted. Patient initially afebrile. Noted to develop low grade temp towards end of stay. No focal infection identified during ER evaluation. Given persistent O2 requirement/hypoxia, continued tachycardia, and development of low grade temp, it was felt that patient would benefit from further observation/evaluation. In light of the recent surgery, transfer to [facility] in [place] was best option as they have surgical services and GI available if required. Call placed to Hospitalist at [facility]. Patient accepted by . Departure - Departure Time of Disposition: 21:11 Disposition: DC/Tfer to [facility] 02 Reason for Transfer *Q: Other Condition: Good Clinical Impression: S/P gastric surgery, SOB (shortness of breath), Low grade fever Referrals: Krystle Agrawal PA-C [Primary Care Provider] - Forms: ED Department Discharge Sepsis Event Note (ED) - Evaluation Sepsis Screening Result: No Definite Risk - Focused Exam Vital Signs: Vital Signs Temp Temp Pulse Resp BP Pulse Ox Pulse Ox 09/02/19 19:45 38.3 C H 122 H 15 122/94 H 94 L 09/02/19 19:20 121 H 15 121/65 95 09/02/19 19:03 116 H 16 154/83 H 95 09/02/19 18:33 114 H 18 155/83 H 97 09/02/19 18:15 111 H 20 166/88 H 96 09/02/19 18:00 112 H 15 134/85 96 09/02/19 17:45 124 H 24 H 143/81 H 96 09/02/19 17:33 27 H 143/81 H 95 09/02/19 17:21 27 H 147/73 H 96 09/02/19 17:15 28 H 155/83 H 96 09/02/19 16:45 90 L 09/02/19 16:39 36.8 C 122 H 16 155/84 H 89 L - My Orders Last 24 Hours: My Active Orders 09/02/19 17:21 Chest 1V Frontal [CR] Stat Saline Lock Insert [OM.PC] Routine 09/02/19 17:22 EKG Documentation Completion [RC] ASDIRECTED Abdomen 1V Upright [CR] Stat Sodium Chloride 0.9% [Saline Flush] 10 ml FLUSH ASDIRECTED PRN 09/02/19 18:00 PE Chest [Ang Chest] [CT] Stat 09/02/19 18:15 Sodium Chloride 0.9% [Normal Saline] 500 ml IV .BOLUS - Assessment/Plan Last 24 Hours: My Active Orders 09/02/19 17:21 Chest 1V Frontal [CR] Stat Saline Lock Insert [OM.PC] Routine 09/02/19 17:22 EKG Documentation Completion [RC] ASDIRECTED Abdomen 1V Upright [CR] Stat Sodium Chloride 0.9% [Saline Flush] 10 ml FLUSH ASDIRECTED PRN 09/02/19 18:00 PE Chest [Ang Chest] [CT] Stat 09/02/19 18:15 Sodium Chloride 0.9% [Normal Saline] 500 ml IV .BOLUS
[2019-09-02 17:57] LABS: CHLORIDE,CL 98 mmol/L (98-107); SODIUM,NA 136 mmol/L (136-145)
[2019-09-02] MEDS ORDERED: Sodium Chloride 0.9% 500 ML IV SCH (18:15)
[2019-09-02] MEDS ORDERED: Iopamidol 755 Mg/ML 100 ML Bottle IVPUSH STA (18:25)
[2019-09-02] MEDS ORDERED: Sodium Chloride 0.9% 1,000 ML IV ONE (21:13)
[2019-09-02 23:30] VITALS: BP 158/74; PULSE 102
== END 2019-09-02 22:00 ==
LOC: LL.ED 16:36
DX: R06.02 Shortness of breath (principal); R50.9 Fever, unspecified; R00.0 Tachycardia, unspecified; I25.10 Atherosclerotic heart disease of native coronary artery without angina pectoris; E78.00 Pure hypercholesterolemia, unspecified; I10 Essential (primary) hypertension; M19.90 Unspecified osteoarthritis, unspecified site; F41.9 Anxiety disorder, unspecified; F32.9 Major depressive disorder, single episode, unspecified; E11.42 Type 2 diabetes mellitus with diabetic polyneuropathy; Z87.891 Personal history of nicotine dependence; Z98.84 Bariatric surgery status; Z88.5 Allergy status to narcotic agent; Z88.8 Allergy status to other drugs, medicaments and biological substances; Z79.899 Other long term (current) drug therapy
CPT/HCPCS: 36415; 71045; 71275; 74018; 80053; 81001; 83605; 83735; 83880; 84484; 85025; 85379; 93005; 96361; 96374; 96376; 99285; J1170; J7030; J7040; Q9967; 93010; 99284

== ENCOUNTER 2024-07-02 15:36 | Emergency (ER) | payer MEDICARE, BC ==
[2024-07-02 16:17] LABS: BASOPHILS ABSOLUTE AUTO 0.06 K/uL (0.00-0.20); BASOPHILS PERCENT AUTO 0.7 % (0.0-2.0); EOSINOPHILS ABSOLUTE AUTO 0.06 K/uL (0.00-0.50); EOSINOPHILS PERCENT AUTO 0.7 % (0.0-5.0); HEMATOCRIT 46.4 % (39.0-49.0); HEMOGLOBIN 16.4 g/dL (13.1-16.8); IMMATURE GRAN ABSOLUTE AUTO 0.01 10^3/uL (0.00-0.04); IMMATURE GRAN PERCENT AUTO 0.1 % (0.0-0.4); LYMPHOCYTES ABSOLUTE AUTO 0.88 K/uL (0.50-3.50); LYMPHOCYTES PERCENT AUTO 10.9 % (10.0-50.0); MEAN CORPUSCULAR HEMOGLOBIN 32.9 pg (28.2-33.3); MEAN CORPUSCULAR HGB CONC 35.3 g/dL (31.7-36.0); MONOCYTES ABSOLUTE AUTO 0.81 K/uL (0.00-1.00); NEUTROPHILS ABSOLUTE AUTO 6.27 K/uL (1.40-7.00); NEUTROPHILS PERCENT AUTO 77.6 % (45.0-80.0); PLATELET COUNT,PLT 202 K/uL (150-350); RED BLOOD CELL COUNT 4.99 M/uL (4.33-5.41); WHITE BLOOD CELL COUNT,WBC 8.1 K/uL (4.0-10.2)
[2024-07-02] MEDS ORDERED: Naloxone 0.4 MG/ML SDV IVPUSH PRN (16:29)
[2024-07-02] MEDS: fentaNYL 50 MCG/ML SDV IVPUSH ONE (16:32)
[2024-07-02 16:39] LABS: ALBUMIN 4.1 g/dL (3.4-5.0); BILIRUBIN TOTAL 3.2 mg/dL (0.2-1.0); CALCIUM 9.4 mg/dL (8.5-10.1); CARBON DIOXIDE,CO2 30.1 mmol/L (21.0-32.0); CREATININE 1.09 mg/dL (0.51-1.17); EST CRCL DRUG DOSING (CG) 61.26 mL/min; MAGNESIUM 1.8 mg/dL (1.8-2.4); POTASSIUM,K 3.9 mmol/L (3.5-5.1); PROTEIN TOTAL,TP 7.6 g/dL (6.4-8.2)
[2024-07-02 16:41] LABS: ANION GAP 9.8 meq/L (7-15)
[2024-07-02 18:06] VITALS: PULSE 83
[2024-07-02] MEDS ORDERED: fentaNYL 50 MCG/ML SDV ONE (18:54)
[2024-07-02 20:13] VITALS: BP 137/86
[2024-07-02] MEDS: fentaNYL 100 MCG/2 ML SDV IVPUSH ONE (20:44)
[2024-07-03 07:03] LABS: APPEARANCE,URINE CLEAR; BILIRUBIN,URINE NEGATIVE (NEGATIVE); COLOR,URINE YELLOW; GLUCOSE,URINE NEGATIVE (NEGATIVE); KETONES,URINE NEGATIVE (NEGATIVE); LEUKOCYTE ESTERASE,URINE NEGATIVE (NEGATIVE); NITRITE,URINE NEGATIVE (NEGATIVE); OCCULT BLOOD,URINE NEGATIVE (NEGATIVE); PH,URINE 5.5 (5.0-9.0); PROTEIN,URINE NEGATIVE (NEGATIVE); UROBILINOGEN,URINE 0.2 E.U./dL (0.2-1.0)
== END 2024-07-02 20:54 ==
LOC: LL.ED 15:36
DX: S72.115A Nondisplaced fracture of greater trochanter of left femur, initial encounter for closed fracture (principal); I10 Essential (primary) hypertension; E78.00 Pure hypercholesterolemia, unspecified; J44.9 Chronic obstructive pulmonary disease, unspecified; K21.9 Gastro-esophageal reflux disease without esophagitis; E11.9 Type 2 diabetes mellitus without complications; Z79.899 Other long term (current) drug therapy; Z88.1 Allergy status to other antibiotic agents; Z88.8 Allergy status to other drugs, medicaments and biological substances; Z88.5 Allergy status to narcotic agent; W01.0XXA Fall on same level from slipping, tripping and stumbling without subsequent striking against object, initial encounter
CPT/HCPCS: 36415; 71045; 72170; 73700-LT; 80053; 81003; 83605; 83735; 85025; 93005; 93010; 96374; 96376; 99284; 99285-25; J3010